=== PATIENT | female | born 1940 | race Caucasian/White ===

== ENCOUNTER 2019-11-16 09:25 | Outpatient (CLI) | payer MEDICARE, OTHER, SELFPAY ==
--- NOTE | 2019-11-16 09:43 | US_ITS ---
WS: [id number] ADDITIONAL VIEWS LEFT MAMMOGRAM LEFT BREAST ULTRASOUND HISTORY: LT BREAST NODULAR DENSITY COMPARISON: 10/17/2019, 09/02/2018 and 06/30/2017 LEFT MAMMOGRAM: Spot compression views and true ML. Asymmetry in the lateral LEFT breast nearly completely resolves with additional imaging. There is elinor y minimal increased density seen only on the LEFT cc. Suspect this is normal fibroglandular density b ut ultrasound to follow. LEFT BREAST ULTRASOUND 2-D and color Doppler imaging submitted. Ultrasound is directed to the lateral LEFT breast. Along the lateral LEFT breast from 1-5 o'clock, n o suspicious masses or shadowing or increased vascularity. US/US breast LT limited* [id number] IMPRESSION: BI-RADS: 2-Benign FOLLOW UP: 1 Year Follow-up
== END 2019-11-16 09:26 | disposition home or self-care (01) ==
LOC: RADSHAW 09:39
PROVIDERS: Family Provider Registered Nurse; PCP Registered Nurse; Visit Provider Registered Nurse
DX: N64.89 Other specified disorders of breast (principal)
CPT/HCPCS: 76642; 77065

== ENCOUNTER 2019-11-20 13:42 | Outpatient (CLI) | payer MEDICARE, OTHER, SELFPAY ==
--- NOTE | 2019-11-20 13:48 | XR_ITS ---
WS: [id number] DEXA (DUAL ENERGY X-RAY ABSORPTIOMETRY) Bone mineral density was performed using a [employer] machine. HISTORY: OSTEOPOROSIS SCREENING, POST-MENOPAUSAL COMPARISON: None available. Lumbar spine BMD (L1-L4): 1.199 g/cm2 T score: 0.2 Z score: 2.0 Total hip BMD: Left: 0.941 g/cm2. T score: -0.5 Z score: 1.5 Right: 0.947 g/cm2. T score: -0.5 Z score: 1.5 10 year probability of a major osteoporotic fracture is 12%. XR/XR DEXA axial skeleton* [id number] IMPRESSION: NORMAL BONE MINERAL DENSITY based upon the WHO classification for females.
== END 2019-11-20 13:43 | disposition home or self-care (01) ==
LOC: RADWPI 13:46
PROVIDERS: Family Provider Registered Nurse; PCP Radiology Radiation Oncology; Referring Provider Registered Nurse; Visit Provider Registered Nurse
DX: Z78.0 Asymptomatic menopausal state (principal); Z13.820 Encounter for screening for osteoporosis
CPT/HCPCS: 77080

== ENCOUNTER → 2020-04-17 12:13 | Outpatient (BNVA) | payer MEDICARE, OTHER, SELFPAY | PROVIDERS: Family Provider Registered Nurse; PCP Registered Nurse; Visit Provider Internal Medicine Cardiovascular Disease | DX: I65.23 Occlusion and stenosis of bilateral carotid arteries (principal); E78.5 Hyperlipidemia, unspecified; R06.02 Shortness of breath | CPT/HCPCS: 80048; 80061 ==

== ENCOUNTER 2020-04-30 14:55 | Outpatient (CLI) | payer MEDICARE, OTHER, SELFPAY ==
--- NOTE | 2020-04-30 15:00 | USCV_ITS ---
Ariane Perry Age: 79 Gender: F : 1940 Exam Date: 04/30/2020 15:38 Ordering Phys: Macie Weems MD ([email or web address]) Technologist: Danielle Montez Exam Location: [facility] [place] Indication: STENOSIS Risk Factors: Previous Vascular Surgery: Right Brachial BP: / Left Brachial BP: / Right Left Velocity (cm/s) Spectral Plaque Velocity (cm/s) Spectral Plaque Syst/Diast Broadening Syst/Diast Broadening 37.30/ 10.10 Prox CCA 68.40 / 21.00 36.50/ 13.20 Mid CCA 44.40 / 13.70 34.20/ 14.00 Distal CCA 38.50 / 12.80 87.40/ 21.80 Prox ICA 174.90/ 44.20 92.80/ 27.30 Mid ICA 207.10/ 54.30 92.80/ 14.20 Distal ICA 144.80/ 36.20 48.10 ECA 124.30 2.54 ICA/CCA 4.66 Antegrade Vertebral Antegrade 88.50/ 14.20 cm/s 56.50/ 15.80 cm/s Tri Subclavian Tri 136.5 111.7 0 0 FINDINGS Moderate and circular plaque the right bifurcation and internal carotid artery. Moderate to heavy heterogeneous irregular plaques of the left bifurcation and internal carotid artery. Antegrade flow in the vertebral arteries bilaterally. Normal external carotid and subclavian artery Doppler velocities bilaterally CONCLUSIONS Moderate to heavy heterogeneous irregular plaques at the left bifurcation and internal carotid artery with velocity elevation consistent with 50-79% stenosis. Moderate dense irregular plaque at the right bifurcation and internal carotid artery with velocity elevation consistent with 16-49% stenosis. Compared to the study from July 2019, stenosis on the right side appears to be less severe Dr Macie Weems MD [facility] (Electronically Signed) Final Date: 01 May 2020 15:17 S
== END 2020-04-30 14:56 | disposition home or self-care (01) ==
LOC: RAD 15:01
PROVIDERS: PCP Registered Nurse; Visit Provider Internal Medicine Cardiovascular Disease
DX: I65.23 Occlusion and stenosis of bilateral carotid arteries (principal)
CPT/HCPCS: 93880

== ENCOUNTER → 2020-10-23 11:17 | Outpatient (BNVA) | payer MEDICARE, OTHER, SELFPAY | PROVIDERS: PCP Registered Nurse; Visit Provider Internal Medicine Cardiovascular Disease | DX: I65.23 Occlusion and stenosis of bilateral carotid arteries (principal); E78.5 Hyperlipidemia, unspecified; R06.02 Shortness of breath; I10 Essential (primary) hypertension | CPT/HCPCS: 80048; 80061; 83036 ==

== ENCOUNTER 2020-11-26 12:46 | Outpatient (CLI) | payer MEDICARE, OTHER, SELFPAY ==
--- NOTE | 2020-11-26 12:55 | MM_ITS ---
WS: [id number] BILATERAL SCREENING DIGITAL MAMMOGRAM WITH CAD HISTORY: SCREENING COMPARISON: 11/16/2019, 10/17/2019 and 12/19/2015 Bilateral CC and MLO views submitted. Computer aided detection analyzed. Breast composition: There are scattered areas of fibroglandular density. No suspicious masses, microc alcifications or architectural distortion. Lobulated nodule in the anterior RIGHT breast measures 7 m m and unchanged. Benign calcification also in the RIGHT breast. MM/[place] [id number] IMPRESSION: BI-RADS: 2-Benign FOLLOW UP: 1 Year Follow-up
== END 2020-11-26 12:47 | disposition home or self-care (01) ==
LOC: RADSHAW 12:53
PROVIDERS: PCP Registered Nurse; Visit Provider Registered Nurse
DX: Z12.31 Encounter for screening mammogram for malignant neoplasm of breast (principal)
CPT/HCPCS: 77067

== ENCOUNTER 2020-12-10 14:17 | Emergency (ER) | payer MEDICARE, OTHER, SELFPAY ==
[2020-12-10 14:23] VITALS: BP 180/67; PULSE 76; RESP 16; TEMP 36.4; O2SAT 98; BMI 25.7
--- NOTE | 2020-12-10 14:36 | XRR_ITS ---
PROCEDURE INFORMATION: Exam: XR Chest, 1 View Exam date and time: 12/10/2020 2:43 PM Age: 80 years old Clinical indication: Chest pain; Prior surgery; Surgery type: Pacemaker, stent TECHNIQUE: Imaging protocol: XR of the chest Views: 1 view. COMPARISON: CT chest w con* [id number] 10/23/2019 9:13 AM FINDINGS: Lungs: Unremarkable. No consolidation. Pleural spaces: Unremarkable. No pleural effusion. No pneumothorax. Heart/Mediastinum: Unremarkable. No cardiomegaly. Bones/joints: Unremarkable. Soft tissues: Cardiac pacemaker is seen in the left anterior chest the leads are intact and good position XR/XR chest 1V portable [id number] IMPRESSION: 1. No acute findings. 2. Stable cardiac pacemaker left anterior chest
--- NOTE | 2020-12-10 14:36 | ECG_ITS ---
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/[id number] f
[2020-12-10 14:45] LABS: Basophils # 0.1 10^3/uL (0.0-0.1); Basophils % 0.7 %; Eosinophils # 0.2 10^3/uL (0.0-0.8); Eosinophils % 2.6 %; Hematocrit 44.5 % (37.0-47.0); Hemoglobin 14.6 g/dL (11.5-15.3); Lymphocytes # 1.6 10^3/uL (0.8-4.8); Lymphocytes % 23.6 %; Mean Corpuscular HGB Conc 32.8 g/dL (30.0-36.0); Mean Corpuscular Hemoglobin 30.9 pg (28.0-34.0); Mean Corpuscular Volume 94.3 fL (81-99); Mean Platelet Volume 8.9 fL (7.4-10.4); Monocytes # 0.4 10^3/uL (0.2-0.9); Monocytes % 6.4 %; Neutrophils # 4.59 10^3/uL (1.8-7.7); Neutrophils % 66.3 %; Nucleated Red Blood Cells % 0 %; Platelet Count 213 10^3/cmm (130-400); Red Blood Count 4.72 10^6/uL (4.1-5.3); White Blood Count 6.9 10^3/uL (4.0-10.0)
[2020-12-10 14:55] LABS: INR 0.95 (0.8-1.2)
[2020-12-10] MEDS: aspirin 81 mg Chew Tablet 324 MG PO (15:00)
[2020-12-10 15:04] LABS: Troponin(5th) Baseline 15 ng/L (0-10)
[2020-12-10 15:11] LABS: Alanine Aminotransferase 29 U/L (0-33); Albumin Level 4.6 g/dL (3.5-5.2); Alkaline Phosphatase 138 IU/L (35-105); Anion Gap 15.3 (5-19); Aspartate Amino Transferase 32 U/L (0-32); Blood Urea Nitrogen 18 mg/dL (8-23); Calcium 9.6 mg/dL (8.5-10.5); Carbon Dioxide 27 mmol/L (22-29); Chloride 102 mmol/L (98-107); Globulin 2.2 g/dL (1.3-4.6); Glucose 126 mg/dL (65-115); Lipase 30 U/L (13-60); NT Pro B Type Natriuretic Pept 787 pg/mL (0-450); Osmolality Calculated 293 mOsm/kg (285-295); Potassium 4.3 mmol/L (3.5-5.1); Sodium 140 mmol/L (136-145); Total Bilirubin 0.7 mg/dL (0.15-1.2); Total Protein 6.8 g/dL (6.6-8.7)
--- NOTE | 2020-12-10 15:40 | ED_ITS ---
HPI - Chest Pain General: Chief Complaint: Chest Pain Stated Complaint: Chest pains this morning Time Seen by Provider: 12/10/20 14:22 Source: patient Mode of arrival: ambulatory Limitations: no limitations History of Present Illness: HPI narrative: 80-year-old female patient with a prior history of coronary artery disease, presents to the emergency department with chest pain that happened earlier today. Symptoms lasted about an hour. spontaneously resolved. She has a prior history of RI many years ago and she says she has been chest pain-free since then. She is here to be evaluated. MD complaint: chest pain Pertinent past history: coronary artery disease and prior RI Onset (ago): hour(s) (6) Timing of current episode: episodic and now resolved Prior episodes: No Onset: during rest Pain location: substernal Pain radiation: none Severity: moderate Quality: heaviness Relieving factors: nothing Exacerbating factors: nothing Associated symptoms: Deny abdominal pain, diaphoresis, dyspnea, fever(s), leg edema, nausea, palpitations, sense of impending doom, syncope or vomiting Treatment prior to arrival: none Review of Systems General: Reports: 10 or more systems reviewed and unremarkable except in HPI and below Const: Denies: fever(s) or diaphoresis Eyes: Denies: change in vision or blurry vision ENMT: Denies: throat pain, enlarged tonsils, odynophagia, hoarseness, mouth pain or swelling of lips/tongue Card: Denies: palpitations or syncope Resp: Denies: dyspnea GI: Denies: abdominal pain, nausea or vomiting : Denies: flank pain, difficulty voiding, dysuria, urinary frequency, urinary urgency or urinary hesitancy Musc: Denies: neck pain, back pain or extremity swelling Skin/Breast: Denies: rash, pruritus or erythema Neuro: Denies: headache(s), numbness in extremities or weakness in extremities Endo: Denies: polyuria, polydipsia or tired all the time PFS ED PFSH: Medical History (Reviewed 12/10/20 @ 15:43 by Marialuisa Prakash MD, [facility] [place] ASHD (arteriosclerotic heart disease) Bilateral carotid artery stenosis Diabetes Dyslipidemia Hypertension Incomplete heart block Pacemaker Family History (Reviewed 12/10/20 @ 15:43 by Marialuisa Prakash MD, [facility] [place] Mother CAD (coronary artery disease) Father CAD (coronary artery disease) Brother CAD (coronary artery disease) Sister CAD (coronary artery disease) Chronic kidney disease (CKD) Diabetes Hyperlipidemia Hypertension Stroke Denies family history of Clotting disorder Dementia Suicide Anesthesia complication Bleeding disorder Lung disease Cancer Social History (Reviewed 12/10/20 @ 15:43 by Marialuisa Prakash MD, [facility] [place] Smoking and tobacco status: former smoker Alcohol intake: never Physical Exam Const: COMMON NORMALS: no acute distress, average body habitus, patient oriented x3, no limitations, healthy appearing, alert and well nourished Neck/C-Spine: COMMON NORMALS: no meningeal signs and no JVD Chest: COMMONS NORMALS: normal inspection of the chest and normal palpation of entire chest wall Resp: COMMON NORMALS: normal respiratory effort, No retractions, No use of accessory muscles, clear to auscultation bilaterally and percussion normal AUSCULTATION: clear to auscultation bilaterally PERCUSSION: percussion normal Cardio: COMMON NORMALS: no JVD, regular rate, regular rhythm, S1 normal heart sound present, S2 normal heart sound present, No gallops present (Cardio), No clicks present (Cardio), No murmurs present (Cardio), No rub (Cardio) and Peripheral pulses 2+ throughout RATE: regular rate RHYTHM: regular rhythm HEART SOUNDS: S1 normal heart sound present and S2 normal heart sound present PERIPHERAL PULSES: Peripheral pulses 2+ throughout GI: COMMON NORMALS: Normal to inspection, nondistended, normoactive bowel sounds present, Soft to palpation, non-tender, No hepatosplenomegaly present, no masses and no bruits PALPATION: Yes Soft to palpation and Yes No hepatosplen omegaly present Extremity: COMMON NORMALS: normal to inspection, full ROM, capillary refill normal, no calf tenderness and no pedal edema Neuro: COMMON NORMALS: patient oriented x3 SENSORIUM/ORIENTATION: Yes alert MENINGEAL SIGNS: Yes no meningeal signs Course Reevaluation(s): Reevaluation #1: Discussed her lab and imaging findings with her. Troponin mildly elevated but she has a flat 2-hour delta. Other labs are unremarkable. We will discharge her home with no new orders but she is to contact her drapery hanger tomorrow and see if you would like follow-up. She voiced understanding and is in agreement with the plan. Time: 18:32 Vital Signs: Vital signs: Vital Signs Temperature 97.6 F 12/10/20 14:23 Pulse Rate 70 12/10/20 18:41 Respiratory Rate 17 12/10/20 18:41 Blood Pressure 175/83 12/10/20 18:41 Pulse Oximetry 96 12/10/20 18:41 MDM - Chest Pain MDM Narrative: Medical decision making narrative: 80-year-old female patient with a history of a prior RI and coronary artery disease presented to the emergency department with chest pain that lasted about 1 hour. Evaluation in the emergency department is unremarkable. She is discharged home with no new orders Medical Records: Attestation: I reviewed the patient's medical records. Lab Data: Attestation: I reviewed the patient's lab results. Labs: Lab Results 12/10/20 12/10/20 12/10/20 Range/Units 14:34 14:34 14:34 WBC 6.9 (4.0-10.0) 10^3/ uL RBC 4.72 (4.1-5.3) 10^6/u L Hgb 14.6 (11.5-15.3) g/dL Hct 44.5 (37.0-47.0) % MCV 94.3 (81-99) fL MCH 30.9 (28.0-34.0) pg MCHC 32.8 (30.0-36.0) g/dL RDW 13.0 (12.1-15.1) % Plt Count 213 (130-400) 10^3/c mm MPV 8.9 (7.4-10.4) fL Neut % (Auto) 66.3 % Lymph % (Auto) 23.6 % [place] % (Auto) 6.4 % Eos % (Auto) 2.6 % Baso % (Auto) 0.7 % Neut # (Auto) 4.59 (1.8-7.7) 10^3/u L Lymph # (Auto) 1.6 (0.8-4.8) 10^3/u L [place] # (Auto) 0.4 (0.2-0.9) 10^3/u L Eos # (Auto) 0.2 (0.0-0.8) 10^3/u L Baso # (Auto) 0.1 (0.0-0.1) 10^3/u L Nucleated RBC % (a uto) 0 % Nucleated RBCs # 0.0 /100WBC PT 13.00 (12.1-14.9) SECO NDS INR 0.95 (0.8-1.2) Sodium 140 (136-145) mmol/L Potassium 4.3 (3.5-5.1) mmol/L Chloride 102 (98-107) mmol/L Carbon Dioxide 27 (22-29) mmol/L Anion Gap 15.3 (5-19) BUN 18 (8-23) mg/dL Creatinine 0.8 (0.5-0.9) mg/dL GFR Calculation Not Reportable Glucose 126 H (65-115) mg/dL Calculated Osmolal ity 293 (285-295) mOsm/k g Calcium 9.6 (8.5-10.5) mg/dL Total Bilirubin 0.7 (0.15-1.2) mg/dL AST 32 (0-32) U/L ALT 29 (0-33) U/L Alkaline Phosphata se 138 H (35-105) IU/L Troponin T Baselin e (0-10) ng/L Troponin T 120 Min [place] (0-10) ng/L Delta Troponin T (0-10) ABS# NT-Pro-B Natriuret Pep 787 H (0-450) pg/mL Total Protein 6.8 (6.6-8.7) g/dL Albumin 4.6 (3.5-5.2) g/dL Globulin 2.2 (1.3-4.6) g/dL Lipase 30 (13-60) U/L 12/10/20 12/10/20 Range/Units 14:34 16:40 WBC (4.0-10.0) 10^3/ uL RBC (4.1-5.3) 10^6/u L Hgb (11.5-15.3) g/dL Hct (37.0-47.0) % MCV (81-99) fL MCH (28.0-34.0) pg MCHC (30.0-36.0) g/dL RDW (12.1-15.1) % Plt Count (130-400) 10^3/c mm MPV (7.4-10.4) fL Neut % (Auto) % Lymph % (Auto) % [place] % (Auto) % Eos % (Auto) % Baso % (Auto) % Neut # (Auto) (1.8-7.7) 10^3/u L Lymph # (Auto) (0.8-4.8) 10^3/u L [place] # (Auto) (0.2-0.9) 10^3/u L Eos # (Auto) (0.0-0.8) 10^3/u L Baso # (Auto) (0.0-0.1) 10^3/u L Nucleated RBC % (a uto) % Nucleated RBCs # /100WBC PT (12.1-14.9) SECO NDS INR (0.8-1.2) Sodium (136-145) mmol/L Potassium (3.5-5.1) mmol/L Chloride (98-107) mmol/L Carbon Dioxide (22-29) mmol/L Anion Gap (5-19) BUN (8-23) mg/dL Creatinine (0.5-0.9) mg/dL GFR Calculation Glucose (65-115) mg/dL Calculated Osmolal ity (285-295) mOsm/k g Calcium (8.5-10.5) mg/dL Total Bilirubin (0.15-1.2) mg/dL AST (0-32) U/L ALT (0-33) U/L Alkaline Phosphata se (35-105) IU/L Troponin T Baselin e 15 H (0-10) ng/L Troponin T 120 Min [place] 10.90 H (0-10) ng/L Delta Troponin T -4.10 L (0-10) ABS# NT-Pro-B Natriuret Pep (0-450) pg/mL Total Protein (6.6-8.7) g/dL Albumin (3.5-5.2) g/dL Globulin (1.3-4.6) g/dL Lipase (13-60) U/L Imaging Data^: CXR: Attestation: I personally reviewed and interpreted this imaging study as follows: Radiologist's impression: [address] [address] XRay Report Signed Patient: Ariane Perry #: [id number] : 1940Acct#:[id number] Age/Sex: 80 / FADM Date: 12/10/20 Loc: ERRoom/Bed: Attending Dr: Ordering Provider/Ordering MD: Marialuisa Prakash [place] [facility] [place] Date of Service: 12/10/20 Procedure(s): XR chest 1V portable [id number] Accession Number(s): [id number] Report Number: [id number] PROCEDURE INFORMATION: Exam: XR Chest, 1 View Exam date and time: 12/10/2020 2:43 PM Age: 80 years old Clinical indication: Chest pain; Prior surgery; Surgery type: Pacemaker, stent TECHNIQUE: Imaging protocol: XR of the chest Views: 1 view. COMPARISON: CT chest w con* [id number] 10/23/2019 9:13 AM FINDINGS: Lungs: Unremarkable. No consolidation. Pleural spaces: Unremarkable. No pleural effusion. No pneumothorax. Heart/Mediastinum: Unremarkable. No cardiomegaly. Bones/joints: Unremarkable. Soft tissues: Cardiac pacemaker is seen in the left anterior chest the leads are intact and good position XR/XR chest 1V portable [id number] IMPRESSION: 1. No acute findings. 2. Stable cardiac pacemaker left anterior chest Dictated By:Rafael Thomas Signed By:Chelo Thomas Date/Time:12/10/20 1505 DD/ 1503 EKG Data^: EKG 1: Attestation: I personally reviewed and interpreted this EKG as follows: EKG interpretation date: 12/10/20 EKG interpretation time: 14:24 Prior EKG tracings: available for review Interpretation: Electronic atrial pacemaker. Heart rate [address] changes. Intraventricular conduction delay EKG 2: Attestation: I personally reviewed and interpreted this EKG as follows: EKG interpretation date: 12/10/20 EKG interpretation time: 16:35 Prior EKG tracings: available for review Interpretation: Electronic pacemaker rhythm. Heart rate 69 bpm. Left axis deviation. No ST changes. Intraventricular conduction delay. No significant change. Discharge Plan Discharge Patient Disposition: Home Clinical Impression: Chest pain Qualifiers: Chest pain type: unspecified Qualified Code(s): R07.9 - Chest pain, unspecified Hypertension Qualifiers: Hypertension type: essential hypertension Qualified Code(s): I10 - Essential (primary) hypertension Condition: Stable Prescriptions: Continued clopidogrel [Plavix] 75 mg tablet 75 mg PO DAILY@2100 RF: 0 potassium gluconate 600 mg (99 mg) tablet 600 mg PO DAILY@0800 RF: 0 nitroglycerin [Nitrostat] 0.4 mg tablet, sublingual 0.4 mg SUBLINGUAL Q5M PRN (Reason: chest pains) RF: 0 multivitamin Tablet 1 tab PO DAILY@0800 RF: 0 alprazolam 0.5 mg tablet 0.5 mg PO TID PRN (Reason: Anxiety) RF: 0 folic acid 400 mcg tablet 0.4 mg PO DAILY@0800 RF: 0 atorvastatin 40 mg tablet 40 mg PO DAILY@2100 RF: 0 aspirin [Adult Low Dose Aspirin] 81 mg tablet,delayed release (DR/EC) 81 mg PO DAILY@2100 RF: 0 magnesium oxide 400 mg magnesium tablet 500 mg PO DAILY@0800 RF: 0 metoprolol succinate 100 mg tablet extended release 24 hr 100 mg PO DAILY@0800 RF: 0 Discharge Orders: Discharge ED (Routine); Ordered 12/10/20 Ordered By: Marialuisa Prakash Referrals: Macie Weems MD [Physician] - 1-3 days Kassie Toscano [Primary Care Provider] - 1-3 days Discharge Diet: Usual diet Discharge Activity: Increase activity as tolerated Patient Instructions: Chest Pain (ED), Hypertension (ED) Activity Restrictions/Additional Instructions: Return for any new or worsening symptoms. Follow-up with your primary care provider within 3 days. Call the office of Dr. Weems tomorrow and explain what happened and see if he would like to see you in the clinic soon. He will also be sent a copy of your chart. Continue home medications. Check your blood pressure at home at least twice a day if it remains elevated you need to restart your blood pressure medicines. Coding Level of Care Code ED V Block Saw Operator for Maulik Fwd Exam Detailed
--- NOTE | 2020-12-10 16:36 | ECG_ITS ---
[facility] Test Date: 2020-12-10 Pat Name: Ariane Perry Department: Room: Gender: Female Top Closer: : 1940 Requested By: Marialuisa Prakash I Order Number: [id number] Reading MD: JESSICA ESPINOZA Measurements Intervals [place] Rate: 69 P: 123 MS: 259 QRS: -73 QRSD: 144 T: 81 QT: 457 QTc: 493 Interpretive Statements ELECTRONIC ATRIAL PACEMAKER LEFT AXIS DEVIATION [QRS AXIS < -30] INTRAVENTRICULAR CONDUCTION DELAY [130+ ms QRS DURATION] Compared to ECG 12/10/2020 14:24:27 No significant changes Electronically Signed On 12-10-2020 18:03:15 PARTY PLANNER by JESSICA ESPINOZA [id number]
[2020-12-10 17:22] VITALS: BP 170/66; PULSE 70; RESP 19; O2SAT 97
[2020-12-10 18:41] VITALS: BP 175/83; PULSE 70; RESP 17; O2SAT 96
== END 2020-12-10 18:43 | disposition home or self-care (01) ==
PROVIDERS: Emergency Provider Family Medicine; PCP Registered Nurse
DX: R07.9 Chest pain, unspecified (principal); I10 Essential (primary) hypertension; Z79.02 Long term (current) use of antithrombotics/antiplatelets; Z79.82 Long term (current) use of aspirin; E11.9 Type 2 diabetes mellitus without complications; E78.5 Hyperlipidemia, unspecified; Z95.0 Presence of cardiac pacemaker; Z87.891 Personal history of nicotine dependence
CPT/HCPCS: 12345; 36415; 71045; 80053; 83690; 83880; 84484; 85025; 85610; 93005; 99283

== ENCOUNTER 2020-12-25 14:32 | Observation (INO) | payer MEDICARE, OTHER, SELFPAY ==
[2020-12-25] VITALS (10 sets, daily range): BP systolic 128–171; BP diastolic 57–85; PULSE 70–80; RESP 14–22; TEMP 36.7–36.8; O2SAT 94–98; BMI 26.5
--- NOTE | 2020-12-25 14:45 | XR_ITS ---
WS: [id number] PORTABLE CHEST HISTORY: chest pain COMPARISON: 12/10/2020 Dual lead LEFT subclavian pacer. Lungs are clear and well expanded. No pleural effusion or pneumothorax. Cardiac size: Normal. Mediastinum/Aorta: Normal mediastinum. No osseous abnormality seen. XR/XR chest 1V portable [id number] IMPRESSION: Unremarkable portable chest.
--- NOTE | 2020-12-25 14:45 | ECG_ITS ---
[facility] Test Date: 2020-12-25 Pat Name: Ariane Perry Department: Room: Gender: Female Hospital Cook: : 1940 Requested By: Niru Crook Order Number: [id number] [place] MD: Danny Ro M.D. Measurements Intervals [place] Rate: 73 P: 110 AK: 271 QRS: -75 QRSD: 148 T: 106 QT: 443 QTc: 491 Interpretive Statements ELECTRONIC ATRIAL PACEMAKER LEFT AXIS DEVIATION [QRS AXIS < -30] INTRAVENTRICULAR CONDUCTION DELAY [130+ ms QRS DURATION] Compared to ECG 12/10/2020 16:35:03 No significant changes Electronically Signed On 12-26-2020 16:55:38 MASTER OCEAN YACHT by Danny Ro M.D. [id number]
--- NOTE | 2020-12-25 14:58 | ED_ITS ---
Documented by User: DIANE Hines 12/25/20 16:50 HPI - Chest Pain General: Chief Complaint: Chest Pain Stated Complaint: CP Time Seen by Provider: 12/25/20 14:42 Source: patient and family (spouse) Mode of arrival: ambulatory Limitations: no limitations History of Present Illness: HPI narrative: Pleasant 80-year-old female patient presents to the emergency department with 24-hour onset of chest pain. She reports chest pain is located in the center of her chest. She reports previous episodes in the past with spontaneous resolution, states evaluated by Dr. Weems on 12/13/2020 with recommended stress test, however, stress test has not been scheduled. She reports this morning, chest pain continued, reports the first time she utilized nitroglycerin tablets. Reports took 3 nitroglycerin 5 minutes apart x3. She is currently pain-free, denies pain in her chest, denies shortness of breath, nausea vomiting or radiation of pain. She denies cough congestion. She has history of PPM placement to the left chest wall secondary to syncope and collapse, bradycardia. She also has history of PCI with stent placement x1. She reports did not feel chest pain with first blockage due to syncope she experienced. 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 Onset (ago): day(s) (1) Onset: during rest Pain location: parasternal Pain radiation: none Severity: moderate Quality: sharp Relieving factors: nitroglycerin Exacerbating factors: nothing Associated symptoms: Reports no associated symptoms; Deny abdominal pain, diaphoresis, dyspnea, fever(s), nausea, palpitations or vomiting Treatment prior to arrival: aspirin Review of Systems General: Reports: 10 or more systems reviewed and unremarkable except in HPI and below Const: Denies: fever(s), chills or diaphoresis Eyes: Denies: blurry vision or eye redness ENMT: Denies: throat pain, dental pain or disequilibrium Card: Reports: chest pain; Denies: palpitations, irregular heart rhythm, swelling of feet/ankles, lightheadedness, dyspnea on exertion, orthopnea or leg pain with exertion Resp: Denies: dyspnea, productive cough, non-productive cough or wheezing GI: Denies: abdominal pain, nausea or vomiting : Denies: difficulty voiding or dysuria Musc: Denies: back pain, joint pain, joint stiffness, muscle cramps or muscle weakness Skin/Breast: Denies: rash, pruritus, erythema or skin tenderness Neuro: Denies: headache(s), weakness in extremities or behavioral changes Raf/Lymph: Denies: easy bruising PFSH ED PFSH: Medical History ASHD (arteriosclerotic heart disease) Bilateral carotid artery stenosis Diabetes Dyslipidemia Hypertension Incomplete heart block Pacemaker Family History Mother CAD (coronary artery disease) Father CAD (coronary artery disease) Brother CAD (coronary artery disease) Sister CAD (coronary artery disease) Chronic kidney disease (CKD) Diabetes Hyperlipidemia Hypertension Stroke Denies family history of Clotting disorder Dementia Suicide Anesthesia complication Bleeding disorder Lung disease Cancer Social History Smoking and tobacco status: former smoker Alcohol intake: never Physical Exam Const: COMMON NORMALS: no acute distress, average body habitus, patient oriented x3, healthy appearing, alert and well nourished GENERAL APPEARANCE: cooperative, comfortable, well kempt, well developed and well hydrated; not disheveled, not ill appearing and not frail appearing NUTRITIONAL APPEARANCE: thin ORIENTATION/CONSCIOUSNESS: Yes awake, Yes oriented to person, Yes oriented to place and Yes oriented to time HENMT: COMMON NORMALS: normocephalic, atraumatic, external ears normal, Normal external nose present and moist oral mucous membranes HEAD & SCALP: normal to inspection, normocephalic and atraumatic FACE & SINUS: normal facial exam and face symmetric NOSE: Normal external nose present, Normal nares present and No nasal polyps present EXTERNAL EAR: Yes external ears normal MOUTH: Normal oral and palatal mucosa present, lip normal and tongue normal THROAT: posterior oropharynx normal and uvula midline Eye: COMMON NORMALS: Equal, round and reactive pupils present and EOMs intact bilaterally GENERAL EYE: appearance normal, both eyes and all related structures PUPIL: Yes Equal, round and reactive pupils present Neck/C-Spine: COMMON NORMALS: full ROM and no lymphadenopathy GENERAL: Yes normal visual inspection and Yes trachea midline CERVICAL SPINE: Yes cervical ROM normal Lymph: LYMPHATIC: no lymphadenopathy noted Chest: COMMONS NORMALS: normal inspection of the chest and normal palpation of entire chest wall CHEST: No localized rib tenderness with anteroposterior compression Resp: COMMON NORMALS: normal respiratory effort, No retractions, No use of accessory muscles and clear to auscultation bilaterally EFFORT & INSPECTION: Yes able to speak in complete sentences, No abnormal respiratory pattern, No pursed lip breathing, No labored and No audible wheezes AUSCULTATION: clear to auscultation bilaterally and lung sounds not diminished Cardio: COMMON NORMALS: regular rate, regular rhythm, S1 normal heart sound present, S2 normal heart sound present and Peripheral pulses 2+ throughout RATE: regular rate RHYTHM: regular rhythm HEART SOUNDS: S1 normal heart sound present and S2 normal heart sound present PERIPHERAL PULSES: Peripheral pulses 2+ throughout GI: COMMON NORMALS: Normal to inspection, nondistended, normoactive bowel sounds present, Soft to palpation and non-tender INSPECTION: Yes normal to inspection, No abdominal wall ecchymosis, No abdominal distension and No central obesity PALPATION: Yes Soft to palpation, No Guarding due to palpation present (GI) and No Rigid due to palpation : COMMON NORMALS: Yes no CVA tenderness BLADDER/KIDNEY EXAM: Yes no CVA tenderness Back/Pelvis: COMMON NORMALS: no CVA tenderness and thoracic and lumbar spine normal to inspection Extremity: COMMON NORMALS: normal to inspection, full ROM, capillary refill normal and no pedal edema GENERAL: Yes normal exam except as noted Neuro: COMMON NORMALS: patient oriented x3 and no focal motor deficits SENSORIUM/ORIENTATION: Yes alert, Yes oriented to person, Yes oriented to place and Yes oriented to time SPEECH: speech normal GAIT: Yes Normal gait present MOTOR EXAM: 5/5 motor strength present throughout Psych: COMMON NORMALS: mental status grossly normal, Normal thought process present, cooperative, normal affect, speech normal and activity/motor behavior normal APPEARANCE: Yes well kempt ACTIVITY/MOTOR BEHAVIOR: Yes appropriate eye contact SPEECH: Yes normal speech THOUGHT PROCESS: Normal thought process present Skin: COMMON NORMALS: no rashes or lesions noted, no wounds, turgor normal, no petechiae and no mottling GENERAL SKIN EXAM: no rashes or lesions noted, elasticity normal and turgor normal Course Vital Signs: Vital signs: Vital Signs Temperature 98.0 F 12/25/20 14:43 Pulse Rate 70 12/25/20 18:00 Respiratory Rate 18 12/25/20 18:00 Blood Pressure 133/59 12/25/20 18:00 Pulse Oximetry 96 12/25/20 18:00 MDM - Chest Pain MDM Narrative: Medical decision making narrative: 80 year old female presents to the ED with c/o CP since yesterday, took NTG x 3 with relief - CP 2/10 upon arrival to the ED, initial troponin 13 - 2 hour troponin pending. CXR with normal findings. Lab Data: Labs: Lab Results 12/25/20 12/25/20 12/25/20 Range/Units 14:56 14:56 14:56 WBC 6.5 (4.0-10.0) 10^3/ uL RBC 4.28 (4.1-5.3) 10^6/u L Hgb 13.3 (11.5-15.3) g/dL Hct 38.8 (37.0-47.0) % MCV 90.7 (81-99) fL MCH 31.1 (28.0-34.0) pg MCHC 34.3 (30.0-36.0) g/dL RDW 12.7 (12.1-15.1) % Plt Count 208 (130-400) 10^3/c mm MPV 8.6 (7.4-10.4) fL Neut % (Auto) 63.9 % Lymph % (Auto) 24.8 % [place] % (Auto) 7.9 % Eos % (Auto) 2.5 % Baso % (Auto) 0.6 % Neut # (Auto) 4.14 (1.8-7.7) 10^3/u L Lymph # (Auto) 1.6 (0.8-4.8) 10^3/u L [place] # (Auto) 0.5 (0.2-0.9) 10^3/u L Eos # (Auto) 0.2 (0.0-0.8) 10^3/u L Baso # (Auto) 0.0 (0.0-0.1) 10^3/u L Nucleated RBC % (a uto) 0 % Nucleated RBCs # 0.0 /100WBC Sodium 137 (136-145) mmol/L Potassium 3.7 (3.5-5.1) mmol/L Chloride 97 L (98-107) mmol/L Carbon Dioxide 32 H (22-29) mmol/L Anion Gap 11.7 (5-19) BUN 12 (8-23) mg/dL Creatinine 1.0 H (0.5-0.9) mg/dL GFR Calculation Not Reportable Glucose 88 (65-115) mg/dL POC Glucose (70-110) mg/dL Calculated Osmolal ity 283 L (285-295) mOsm/k g Calcium 9.5 (8.5-10.5) mg/dL Total Bilirubin 0.7 (0.15-1.2) mg/dL AST 31 (0-32) U/L ALT 30 (0-33) U/L Alkaline Phosphata se 138 H (35-105) IU/L Troponin T Baselin e 13 H (0-10) ng/L Troponin T 120 Min [place] (0-10) ng/L Delta Troponin T (0-10) ABS# Total Protein 6.9 (6.6-8.7) g/dL Albumin 4.6 (3.5-5.2) g/dL Globulin 2.3 (1.3-4.6) g/dL 12/25/20 12/25/20 Range/Units 15:05 16:53 WBC (4.0-10.0) 10^3/ uL RBC (4.1-5.3) 10^6/u L Hgb (11.5-15.3) g/dL Hct (37.0-47.0) % MCV (81-99) fL MCH (28.0-34.0) pg MCHC (30.0-36.0) g/dL RDW (12.1-15.1) % Plt Count (130-400) 10^3/c mm MPV (7.4-10.4) fL Neut % (Auto) % Lymph % (Auto) % [place] % (Auto) % Eos % (Auto) % Baso % (Auto) % Neut # (Auto) (1.8-7.7) 10^3/u L Lymph # (Auto) (0.8-4.8) 10^3/u L [place] # (Auto) (0.2-0.9) 10^3/u L Eos # (Auto) (0.0-0.8) 10^3/u L Baso # (Auto) (0.0-0.1) 10^3/u L Nucleated RBC % (a uto) % Nucleated RBCs # /100WBC Sodium (136-145) mmol/L Potassium (3.5-5.1) mmol/L Chloride (98-107) mmol/L Carbon Dioxide (22-29) mmol/L Anion Gap (5-19) BUN (8-23) mg/dL Creatinine (0.5-0.9) mg/dL GFR Calculation Glucose (65-115) mg/dL POC Glucose 109 (70-110) mg/dL Calculated Osmolal ity (285-295) mOsm/k g Calcium (8.5-10.5) mg/dL Total Bilirubin (0.15-1.2) mg/dL AST (0-32) U/L ALT (0-33) U/L Alkaline Phosphata se (35-105) IU/L Troponin T Baselin e (0-10) ng/L Troponin T 120 Min [place] 12.63 H (0-10) ng/L Delta Troponin T -0.37 L (0-10) ABS# Total Protein (6.6-8.7) g/dL Albumin (3.5-5.2) g/dL Globulin (1.3-4.6) g/dL Imaging Data^: CXR: Radiologist's impression: [address] [address] XRay Report Signed Patient: Ariane Perry Unit #: [id number] : 1940 Age/Sex: 80 / F ADM Date: 12/25/20 Loc: ER Room/Bed: Attending Dr: Ordering Provider/Ordering MD: Niru Miles MD Date of Service: 12/25/20 Procedure(s): XR chest 1V portable [id number] Accession Number(s): [id number] Report Number: [id number] WS: [id number] PORTABLE CHEST HISTORY: chest pain COMPARISON: 12/10/2020 Dual lead LEFT subclavian pacer. Lungs are clear and well expanded. No pleural effusion or pneumothorax. Cardiac size: Normal. Mediastinum/Aorta: Normal mediastinum. No osseous abnormality seen. XR/XR chest 1V portable [id number] IMPRESSION: Unremarkable portable chest. Dictated By: Sylwia Garces DO Signed By: Sylwia Garces DO Signed Date/Time: 12/25/20 1504 DD/ 1503 EKG Data^: EKG 1: EKG interpretation date: 12/25/20 EKG interpretation time: 14:50 Computer generated interpretation: Electronic atrial pacer, ventricular rate 73, intraventricular conduction delay, abnormal ECG, left axis deviation Discharge Plan Discharge Patient Disposition: Placed in Observation Clinical Impression: Unstable angina pectoris Coding Level of Care Code ED Tool Crib Supervisor for Chg Fwd Exam Comprehensive Documented by User: Niru Miles MD 12/25/20 18:36 HPI - Chest Pain General: Chief Complaint: Chest Pain Stated Complaint: CP Time Seen by Provider: 12/25/20 14:42 PFS ED PFSH: Medical History ASHD (arteriosclerotic heart disease) Bilateral carotid artery stenosis Diabetes Dyslipidemia Hypertension Incomplete heart block Pacemaker Family History Mother CAD (coronary artery disease) Father CAD (coronary artery disease) Brother CAD (coronary artery disease) Sister CAD (coronary artery disease) Chronic kidney disease (CKD) Diabetes Hyperlipidemia Hypertension Stroke Denies family history of Clotting disorder Dementia Suicide Anesthesia complication Bleeding disorder Lung disease Cancer Social History Smoking and tobacco status: former smoker Alcohol intake: never Course Reevaluation(s): Reevaluation #1: I saw this patient with DALE Jones and assumed care at the end of her shift. The patient has been painfree in the ED. She has been having chest pain off and on for several weeks and Dr. Weems wanted her to have a stress test after an office visit almost 2 weeks ago - but she hasn't heard from anyone to schedule it. She had the worst pain she has had today - and took 3 nitro. Her trops are neg and EKG unremarkable - but she has a high heart score and is agreeable to admission for monitoring and a stress test tomorrow - if that is felt to be appropriate by the admission team. Vital Signs: Vital signs: Vital Signs Temperature 98.0 F 12/25/20 14:43 Pulse Rate 70 12/25/20 18:00 Respiratory Rate 18 12/25/20 18:00 Blood Pressure 133/59 12/25/20 18:00 Pulse Oximetry 96 12/25/20 18:00 MDM - Chest Pain Lab Data: Labs: Lab Results 12/25/20 12/25/20 12/25/20 Range/Units 14:56 14:56 14:56 WBC 6.5 (4.0-10.0) 10^3/ uL RBC 4.28 (4.1-5.3) 10^6/u L Hgb 13.3 (11.5-15.3) g/dL Hct 38.8 (37.0-47.0) % MCV 90.7 (81-99) fL MCH 31.1 (28.0-34.0) pg MCHC 34.3 (30.0-36.0) g/dL RDW 12.7 (12.1-15.1) % Plt Count 208 (130-400) 10^3/c mm MPV 8.6 (7.4-10.4) fL Neut % (Auto) 63.9 % Lymph % (Auto) 24.8 % [place] % (Auto) 7.9 % Eos % (Auto) 2.5 % Baso % (Auto) 0.6 % Neut # (Auto) 4.14 (1.8-7.7) 10^3/u L Lymph # (Auto) 1.6 (0.8-4.8) 10^3/u L [place] # (Auto) 0.5 (0.2-0.9) 10^3/u L Eos # (Auto) 0.2 (0.0-0.8) 10^3/u L Baso # (Auto) 0.0 (0.0-0.1) 10^3/u L Nucleated RBC % (a uto) 0 % Nucleated RBCs # 0.0 /100WBC Sodium 137 (136-145) mmol/L Potassium 3.7 (3.5-5.1) mmol/L Chloride 97 L (98-107) mmol/L Carbon Dioxide 32 H (22-29) mmol/L Anion Gap 11.7 (5-19) BUN 12 (8-23) mg/dL Creatinine 1.0 H (0.5-0.9) mg/dL GFR Calculation Not Reportable Glucose 88 (65-115) mg/dL POC Glucose (70-110) mg/dL Calculated Osmolal ity 283 L (285-295) mOsm/k g Calcium 9.5 (8.5-10.5) mg/dL Total Bilirubin 0.7 (0.15-1.2) mg/dL AST 31 (0-32) U/L ALT 30 (0-33) U/L Alkaline Phosphata se 138 H (35-105) IU/L Troponin T Baselin e 13 H (0-10) ng/L Troponin T 120 Min [place] (0-10) ng/L Delta Troponin T (0-10) ABS# Total Protein 6.9 (6.6-8.7) g/dL Albumin 4.6 (3.5-5.2) g/dL Globulin 2.3 (1.3-4.6) g/dL 12/25/20 12/25/20 Range/Units 15:05 16:53 WBC (4.0-10.0) 10^3/ uL RBC (4.1-5.3) 10^6/u L Hgb (11.5-15.3) g/dL Hct (37.0-47.0) % MCV (81-99) fL MCH (28.0-34.0) pg MCHC (30.0-36.0) g/dL RDW (12.1-15.1) % Plt Count (130-400) 10^3/c mm MPV (7.4-10.4) fL Neut % (Auto) % Lymph % (Auto) % [place] % (Auto) % Eos % (Auto) % Baso % (Auto) % Neut # (Auto) (1.8-7.7) 10^3/u L Lymph # (Auto) (0.8-4.8) 10^3/u L [place] # (Auto) (0.2-0.9) 10^3/u L Eos # (Auto) (0.0-0.8) 10^3/u L Baso # (Auto) (0.0-0.1) 10^3/u L Nucleated RBC % (a uto) % Nucleated RBCs # /100WBC Sodium (136-145) mmol/L Potassium (3.5-5.1) mmol/L Chloride (98-107) mmol/L Carbon Dioxide (22-29) mmol/L Anion Gap (5-19) BUN (8-23) mg/dL Creatinine (0.5-0.9) mg/dL GFR Calculation Glucose (65-115) mg/dL POC Glucose 109 (70-110) mg/dL Calculated Osmolal ity (285-295) mOsm/k g Calcium (8.5-10.5) mg/dL Total Bilirubin (0.15-1.2) mg/dL AST (0-32) U/L ALT (0-33) U/L Alkaline Phosphata se (35-105) IU/L Troponin T Baselin e (0-10) ng/L Troponin T 120 Min [place] 12.63 H (0-10) ng/L Delta Troponin T -0.37 L (0-10) ABS# Total Protein (6.6-8.7) g/dL Albumin (3.5-5.2) g/dL Globulin (1.3-4.6) g/dL Discharge Plan Discharge Patient Disposition: Placed in Observation Clinical Impression: Unstable angina pectoris Coding Level of Care Code ED Tool Crib Supervisor for Maulik Fwd Exam Comprehensive
[2020-12-25 15:08] LABS: Glucose Point of Care 109 mg/dL (70-110)
[2020-12-25 15:13] LABS: Basophils % 0.6 %; Eosinophils # 0.2 10^3/uL (0.0-0.8); Eosinophils % 2.5 %; Hematocrit 38.8 % (37.0-47.0); Hemoglobin 13.3 g/dL (11.5-15.3); Lymphocytes # 1.6 10^3/uL (0.8-4.8); Lymphocytes % 24.8 %; Mean Corpuscular HGB Conc 34.3 g/dL (30.0-36.0); Mean Corpuscular Hemoglobin 31.1 pg (28.0-34.0); Mean Corpuscular Volume 90.7 fL (81-99); Mean Platelet Volume 8.6 fL (7.4-10.4); Monocytes # 0.5 10^3/uL (0.2-0.9); Monocytes % 7.9 %; Neutrophils # 4.14 10^3/uL (1.8-7.7); Neutrophils % 63.9 %; Nucleated Red Blood Cells % 0 %; Platelet Count 208 10^3/cmm (130-400); Red Blood Count 4.28 10^6/uL (4.1-5.3); Red Cell Distribution Width 12.7 % (12.1-15.1); White Blood Count 6.5 10^3/uL (4.0-10.0)
[2020-12-25 15:42] LABS: Alanine Aminotransferase 30 U/L (0-33); Albumin Level 4.6 g/dL (3.5-5.2); Alkaline Phosphatase 138 IU/L (35-105); Anion Gap 11.7 (5-19); Aspartate Amino Transferase 31 U/L (0-32); Blood Urea Nitrogen 12 mg/dL (8-23); Calcium 9.5 mg/dL (8.5-10.5); Carbon Dioxide 32 mmol/L (22-29); Chloride 97 mmol/L (98-107); Globulin 2.3 g/dL (1.3-4.6); Glucose 88 mg/dL (65-115); Osmolality Calculated 283 mOsm/kg (285-295); Potassium 3.7 mmol/L (3.5-5.1); Sodium 137 mmol/L (136-145); Total Bilirubin 0.7 mg/dL (0.15-1.2); Total Protein 6.9 g/dL (6.6-8.7)
[2020-12-25 15:44] LABS: Troponin(5th) Baseline 13 ng/L (0-10)
--- NOTE | 2020-12-25 16:45 | ECG_ITS ---
[facility] Test Date: 2020-12-25 Pat Name: Ariane Perry Department: Room: Gender: Female Clay Roaster: : 1940 Requested By: Niru Crook Order Number: [id number] Linden MD: Danny Ro M.D. Measurements Intervals [place] Rate: 69 P: 119 AL: 276 QRS: -76 QRSD: 150 T: 102 QT: 459 QTc: 495 Interpretive Statements ELECTRONIC ATRIAL PACEMAKER LEFT AXIS DEVIATION [QRS AXIS < -30] INTERVENTRICULAR CONDUCTION DELAY Compared to ECG 12/25/2020 14:46:35 NO SIGNIFICANT CHANGES Electronically Signed On 12-26-2020 16:48:08 MANAGER BUSINESS BANKING by Danny Ro M.D. [id number]
[2020-12-25 18:17] LABS: Troponin 5 2HR 12.63 ng/L (0-10)
[2020-12-25 18:27] LABS: Troponin 5 2HR Delta -0.37 ABS# (0-10)
--- NOTE | 2020-12-25 19:07 | P.HP_ITS ---
Providers/Chief Complaint Admitting Physician: Poonam Jack MD Primary Care Provider: Kassie Toscano Chief Complaint: CP History of Present Illness 80-year-old female with PMH of CAD S/P Stent, HTN, DLD , S/P ppm 2/2 syncope and collapse about 7 years backs back came in today with c/o chest pain. She reports pressure like chest pain is located in the center of her chest.Started around 11 am, chest pain was resolved with 3 sL nitro. She was having similar chest pain for about 2 weeks she was seen by on 12/13/2020 as outpatient and the plan at that time was do to an Stress test. Her previous episodes of chest pain in the past had spontaneous resolution. At the time of my evaluation She was chest pain-free. She was worked up for above complain in the ER. EKG: A Paced with marked LAD. Troponin : Baseline : 13 2H : 12 2H D: -0.37 , 6H: 11.84 , 6H D : -1.16 Xray chest : Dual lead LEFT subclavian pacer. Lungs are clear and well expanded. No pleural effusion or pneumothorax. Review of Systems Const: Denies: fever(s), chills, body aches, change in appetite or diaphoresis Card: Denies: palpitations, edema, swelling of feet/ankles, dyspnea on exertion, orthopnea or leg pain with exertion Resp: Denies: dyspnea, productive cough, wheezing or pain on inspiration GI: Denies: abdominal pain, nausea, vomiting, diarrhea or constipation : Denies: flank pain Musc: Denies: back pain, extremity pain or extremity swelling Neuro: Denies: headache(s), difficulty walking or confusion Medications/Allergies Home Medications Medication Instructions Recorded Confirmed Last Taken Type aspirin 81 mg tablet,delayed 81 mg PO DAILY@209904/17/20 12/25/20 12/24/20 History release atorvastatin 40 mg tablet 40 mg PO DAILY@209904/17/20 12/25/20 12/24/20 History clopidogrel 75 mg tablet 75 mg PO DAILY@209904/17/20 12/25/20 12/24/20 History folic acid 400 mcg tablet 0.4 mg PO DAILY@159904/17/20 12/25/20 12/24/20 History multivitamin 1 tab PO DAILY@1600 0612/25/20 12/24/20 History nitroglycerin 0.4 mg sublingual 0.4 mg SUBLINGUAL Q5M PRN 04/17/20 12/25/20 12/25/20 History tablet alprazolam 0.5 mg tablet 1 mg PO BID PRN tab 12/11/20 12/25/20 Unknown History ascorbic acid (vitamin C) [Vitamin 500 mg PO DAILY@1600 12/25/20 12/25/20 12/24/20 History C] calcium 600 mg PO DAILY@1600 12/25/20 12/25/20 12/24/20 History cholecalciferol (vitamin D3) 125 mcg PO DAILY@159912/25/20 12/25/20 12/24/20 History [Vitamin D3] hydrochlorothiazide 25 mg PO DAILY@12/25/20 12/25/20 12/25/20 History isosorbide mononitrate 60 mg PO DAILY@2100 12/25/20 12/25/20 12/24/20 History magnesium 500 mg PO DAILY@159912/25/20 12/25/20 12/24/20 History metoprolol tartrate 100 mg PO DAILY@08 12/25/20 12/25/20 12/25/20 History potassium 99 mg PO DAILY@159912/25/20 12/25/20 12/24/20 History zinc 50 mg PO DAILY@159912/25/20 12/25/20 12/24/20 History Allergies Allergy/AdvReac Type Severity Reaction Status Date / Time No Known Allergies Allergy Verified 12/25/20 14:47 PFSH Acute PFSH: Medical History ASHD (arteriosclerotic heart disease) Bilateral carotid artery stenosis Diabetes Dyslipidemia Hypertension Incomplete heart block Pacemaker Family History Mother CAD (coronary artery disease) Father CAD (coronary artery disease) Brother CAD (coronary artery disease) Sister CAD (coronary artery disease) Chronic kidney disease (CKD) Diabetes Hyperlipidemia Hypertension Stroke Denies family history of Clotting disorder Dementia Suicide Anesthesia complication Bleeding disorder Lung disease Cancer Social History Smoking and tobacco status: former smoker Alcohol intake: never Vitals/I&O/Wt Last Vital Signs Temp 98.0 F 12/25/20 14:43 Pulse 70 12/25/20 18:00 Resp 22 H 12/25/20 19:02 BP 162/82 12/25/20 19:02 Pulse Ox 96 12/25/20 19:02 Weight last 48 hrs Weight 68.039 kg Physical Exam Const: COMMON NORMALS: patient oriented x3 HENMT: COMMON NORMALS: normocephalic and atraumatic HEAD & SCALP: normocephalic and atraumatic Chest: CHEST: Yes Symmetrical chest wall rise Resp: COMMON NORMALS: normal respiratory effort, No retractions, No use of accessory muscles and clear to auscultation bilaterally EFFORT & INSPECTION: Yes symmetric chest movement AUSCULTATION: clear to auscultation bilaterally Cardio: COMMON NORMALS: regular rate, regular rhythm, S1 normal heart sound present, S2 normal heart sound present, No gallops present (Cardio), No murmurs present (Cardio), No rub (Cardio) and Peripheral pulses 2+ throughout RATE: regular rate RHYTHM: regular rhythm HEART SOUNDS: S1 normal heart sound present and S2 normal heart sound present PERIPHERAL PULSES: Peripheral pulses 2+ throughout GI: COMMON NORMALS: Normal to inspection, nondistended, normoactive bowel sounds present, Soft to palpation, non-tender, No hepatosplenomegaly present and no masses AUSCULTATION: Yes normoactive bowel sounds PALPATION: Yes Soft to palpation and Yes No hepatosplenomegaly present RECTAL EXAM: deferred Extremity: COMMON NORMALS: no clubbing, cyanosis or edema and no pedal edema Neuro: COMMON NORMALS: patient oriented x3 Data : 12/25/20 14:56 12/25/20 14:56 A&P Assessment and plan (1) Chest pain: Typical Cardiac chest pain with significant r/f ( DLD , h/o CAD S/P Stent , AGE, DLD ) 2 D Echo TELE NPO after midnight for am Stress Test. Aspirin 75 mg po Daily Plavix 75 mg Po Daily Lipitor 40 mg po Daily IMDUR 60 MG PO Daily Nitro S/L PRN Status: Acute (2) Hypertension: Status: Acute Qualifiers: Hypertension type: essential hypertension Qualified Code(s): I10 - Essential (primary) hypertension (3) CAD (coronary artery disease): Status: Acute (4) Diabetes: Status: Acute Qualifiers: Diabetes mellitus type: type 2 Diabetes mellitus skilled nursing insulin use: without skilled nursing use Diabetes mellitus complication status: with hyperglycemia Qualified Code(s): E11.65 - Type 2 diabetes mellitus with hyperglycemia (5) Dyslipidemia: Status: Acute (6) Pacemaker: Status: Acute Additional A&P Information DVT PPX: Lovenox 40 mg sc daily. Code Status :Full code Disposition :Home Attestations Medical Necessity Statement*: Patient needs to be in hospital for the management and evaluation of typical cardiac chest pain. Coding Level of Care Code Acute Electrical Engineering Director for [facility] Fwd Diagnoses Chest pain R07.9 Hypertension I10 Hypertension type: essential hypertension CAD (coronary artery disease) I25.10 Diabetes E11.65 Diabetes mellitus type: type 2 Diabetes mellitus adjunct faculty for medical terminology insulin use: without skilled nursing use Diabetes mellitus complication status: with hyperglycemia Dyslipidemia E78.5 Pacemaker Z95.0
[2020-12-25] MEDS: isosorbide mononitrate ER 60 mg Tablet PO (19:59)
[2020-12-25] MEDS: aspirin 81 mg EC Tablet PO (19:59)
[2020-12-25] MEDS: clopidogrel 75 mg Tablet PO (19:59)
[2020-12-25] MEDS: atorvastatin 40 mg Tablet PO (19:59)
[2020-12-25] MEDS: ALPRAZolam 0.5 mg Tablet 1 MG PO (20:02)
--- NOTE | 2020-12-25 20:45 | ECG_ITS ---
[facility] Test Date: 2020-12-25 Pat Name: Ariane Perry Department: Room: 267 Gender: Female Burr Picker: : [phone] Requested By: Niru Crook Order Number: [id number] Linden MD: Danny Ro M.D. Measurements Intervals [place] Rate: 70 P: 124 MA: 282 QRS: -72 QRSD: 151 T: 103 QT: 470 QTc: 509 Interpretive Statements ELECTRONIC ATRIAL PACEMAKER MARKED LEFT AXIS DEVIATION [QRS AXIS < -30] INTRAVENTRICULAR CONDUCTION DELAY [130+ ms QRS DURATION] Compared to ECG 12/25/2020 16:28:39 Intraventricular conduction delay now present Left bundle-branch block no longer present Electronically Signed On 12-26-2020 16:49:34 TRAFFIC SIGNAL SUPERVISOR MAINTENANCE by Danny Ro M.D. [id number]
[2020-12-25 21:17] LABS: Troponin 5 6HR 11.84 ng/L (0-10); Troponin 5 6HR Delta -1.16 ng/L (0-12)
[2020-12-26] VITALS (8 sets, daily range): BP systolic 116–155; BP diastolic 65–81; PULSE 69–92; RESP 16–18; TEMP 35.7–37.2; O2SAT 93–97
[2020-12-26 05:48] LABS: Basophils % 0.7 %; Eosinophils # 0.2 10^3/uL (0.0-0.8); Eosinophils % 2.7 %; Hematocrit 38.4 % (37.0-47.0); Hemoglobin 12.7 g/dL (11.5-15.3); Lymphocytes # 1.5 10^3/uL (0.8-4.8); Lymphocytes % 25.9 %; Mean Corpuscular HGB Conc 33.1 g/dL (30.0-36.0); Mean Corpuscular Hemoglobin 30.7 pg (28.0-34.0); Mean Corpuscular Volume 92.8 fL (81-99); Mean Platelet Volume 8.9 fL (7.4-10.4); Monocytes # 0.5 10^3/uL (0.2-0.9); Monocytes % 7.9 %; Neutrophils # 3.66 10^3/uL (1.8-7.7); Neutrophils % 62.6 %; Nucleated Red Blood Cells % 0 %; Platelet Count 160 10^3/cmm (130-400); Red Blood Count 4.14 10^6/uL (4.1-5.3); Red Cell Distribution Width 12.8 % (12.1-15.1); White Blood Count 5.8 10^3/uL (4.0-10.0)
[2020-12-26 06:01] LABS: INR 1.04 (0.8-1.2)
[2020-12-26 06:13] LABS: Alanine Aminotransferase 25 U/L (0-33); Albumin Level 3.9 g/dL (3.5-5.2); Alkaline Phosphatase 100 IU/L (35-105); Anion Gap 13.5 (5-19); Aspartate Amino Transferase 25 U/L (0-32); Blood Urea Nitrogen 14 mg/dL (8-23); Calcium 9.3 mg/dL (8.5-10.5); Carbon Dioxide 28 mmol/L (22-29); Chloride 102 mmol/L (98-107); Globulin 2.1 g/dL (1.3-4.6); Glucose 102 mg/dL (65-115); Magnesium 1.8 mg/dL (1.7-2.3); Osmolality Calculated 291 mOsm/kg (285-295); Potassium 3.5 mmol/L (3.5-5.1); Sodium 140 mmol/L (136-145); Total Bilirubin 0.6 mg/dL (0.15-1.2)
[2020-12-26 06:39] LABS: NT Pro B Type Natriuretic Pept 319 pg/mL (0-450)
--- NOTE | 2020-12-26 07:00 | USCV_ITS ---
Ariane Perry Age: 80 Gender: F : 1940 Exam Date: 12/26/2020 06:29 Ordering Phys: Jeovanny Lam MD Technologist: Shira Gardner Exam Location: [facility] Indication: chest pain BP: 136 / 72 HR: 69 Rhythm: Sinus Technical Quality: Adequate MEASUREMENTS (Male / Female) Normal Values 2D ECHO LV Diastolic Diameter PLAX 3.0 cm 4.2 - 5.9 / 3.9 - 5.3 cm LV Systolic Diameter PLAX 1.8 cm IVS Diastolic Thickness 1.8 cm 0.6 - 1.0 / 0.6 - 0.9 cm IVS Systolic Thickness 1.8 cm LVPW Diastolic Thickness 1.9 cm 0.6 - 1.0 / 0.6 - 0.9 cm LVPW Systolic Thickness 2.5 cm RV Chamber Size 2.8 cm LVOT Diameter 2.0 cm LV Ejection Fraction 2D Teich 71.5 % LV Ejection Fraction MOD 2C 54.1 % LV Ejection Fraction 2C AL 56.6 % LA Diameter 2.6 cm LA Width 3.5 cm LA Height 4.3 cm RA Width 2.4 cm RA Height 3.9 cm Aorta at Sinotubular Diameter 2.3 cm M-MODE LV Diastolic Diameter MM 4.8 cm 4.2 - 5.9 / 3.9 - 5.3 cm LV Systolic Diameter MM 2.6 cm LV Ejection Fraction MM Teich 75.6 % IVS Diastolic Thickness MM 1.7 cm 0.6 - 1.0 / 0.6 - 0.9 cm IVS Systolic Thickness MM 2.1 cm LVPW Diastolic Thickness MM 1.4 cm 0.6 - 1.0 / 0.6 - 0.9 cm LVPW Systolic Thickness MM 2.4 cm Aortic Annulus Diameter 2.5 cm LA Ao Ratio MM 1.1 MV E Point Septal Separation 0.3 cm DOPPLER AV Peak Velocity 144.3 cm/s LVOT Peak Velocity 96.0 cm/s AV Area Cont Eq vti 2.1 cm squared AV Area Cont Eq pk 2.1 cm squared MV Area PHT 5.9 cm squared Mitral E to A Ratio 0.8 MV E' Velocity 46.0 cm/s Mitral E to MV E' Ratio 16.3 Mitral E to LV E' Lateral Ratio 13.7 Mitral E to LV E' Septal Ratio 20.0 TR Peak Velocity 315.6 cm/s TR Peak Gradient 39.8 mmHg TR Mean Velocity 234.8 cm/s TR Mean Gradient 23.8 mmHg TR Velocity Time Integral 96.9 cm Right Atrial Pressure 3.0 mmHg Pulmonary Artery Systolic Pressu 42.8 mmHg PV Peak Velocity 106.0 cm/s RV Acceleration Time 0.1 s RV Ejection Time 0.3 s RV AcT/ET 0.3 FINDINGS Left Ventricle Normal left ventricular size and systolic function, EF 66 %. Mild left ventricular hypertrophy. Abnormal septal motion consistent with conduction abnormality. Grade I/IV diastolic dysfunction (abnormal relaxation filling pattern), normal to mildly elevated filling pressures. Right Ventricle The right ventricle is normal in size and function. Right Atrium Catheter/pacemaker wire in the right atrial cavity. Left Atrium Mildly increased left atrial size. Mitral Valve Thickened mitral valve. Mild mitral annular calcification. Trace mitral valve regurgitation. Aortic Valve Thickened aortic valve. Mild aortic valve regurgitation. Tricuspid Valve Mild tricuspid valve regurgitation. Pulmonic Valve Pulmonic valve not well visualized. Pericardium Normal pericardium without effusion. Aorta Normal ascending aorta dimension. CONCLUSIONS Normal left ventricular size and systolic function, EF 66 %. Mild left ventricular hypertrophy. Abnormal septal motion consistent with conduction abnormality. Grade I/IV diastolic dysfunction (abnormal relaxation filling pattern), normal to mildly elevated filling pressures. Mildly increased left atrial size. Thickened mitral valve. Mild mitral annular calcification. Trace mitral valve regurgitation. Features of aortic valve sclerosis Mild aortic valve regurgitation. Mild tricuspid valve regurgitation. Mild pulmonary hypertension with an estimated pulmonary artery peak systolic pressure of 43 mmHg There is no pericardial effusion. There are no intracardiac masses. Compared to the study from 10/22/2014, there may not be a significant change Dr Macie Weems MD [facility] (Electronically Signed) Final Date: 26 December 2020 11:35 S
--- NOTE | 2020-12-26 07:13 | PC.NURSE ---
Report to Lucita HOUGH
--- NOTE | 2020-12-26 07:18 | ECG_ITS ---
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 Interpretive Statements NAME OF STUDY: LEXISCAN SESTAMIBI STRESS TEST INDICATION: Chest Pain, PROCEDURE: At the baseline, the EKG revealed a sensed, V paced rhythm. The baseline blood pressure was 147/86 mm Hg with a heart rate of 74 beats/min. Lexiscan was infused over a period of 20 seconds. A total of 0.4 milligrams of Lexiscan was infused. The stress phase was continued for a total of 5 minutes. Heart rate at the end of the stress phase was 157/66 with a blood pressure 94. The EKG at the peak infusion revealed no significant changes occasional PVCs were noted. Sestamibi was injected 20 seconds after the Lexiscan infusion. Blood pressure at the end of the recovery phase was 155/65 with a heart rate of 92 per minute. CONCLUSION: 1. No significant EKG changes with the LexiScan infusion 2. No LexiScan induced chest pain or cardiac arrhythmia 3. Normal blood pressure and heart rate response 4. Sestamibi/sestamibi perfusion scan pending; see separate report. Electronically Signed On 12-26-2020 11:52:03 FOUNDER CHAIRMAN AND CHIEF CREATIVE OFFICER by Macie Weems M.D. [id number]
[2020-12-26] MEDS: regadenoson 0.4 Mg/5 ml Syringe IVP (08:35)
[2020-12-26] MEDS: hydroCHLOROthiazide 25 mg Tablet PO (10:12)
[2020-12-26] MEDS: metoprolol tartrate 50 mg Tablet 100 MG PO (10:12)
--- NOTE | 2020-12-26 10:43 | PC.CHAP ---
Pastoral Care Encounter/Spiritual Assessment Type of Contact [] Declined runner on visit [] Patient/Family/Request visit [] Outpatient visit [] Follow-up visit [] Physician referral [] Code/Alert [x] Routine visit [] Staff referral [] Actively dying [] Patient sleeping [] Family support [] [] Out of room [] Palliative care [] [x] Receiving care in room [] Pre-surgical visit [] Trauma [] Long length of stay [] ICU visit [] Other: Relational/Emotional Strength [] Patient feels connected with others/family/visitors/staff [] Distress [] Loneliness/isolation [] Abandonment Spirituality of Patient [] Person of Tiesha [] Attends Orthodox of their Tiesha [] Believes in Prayer [] Reads Bible or Restorationism materials [] There are Spiritual issues to be addressed Wedding Planning Internship Interventions [] Prayer [] Active listening [] Non-anxious presence [] Spiritual/emotional support [] Crisis/trauma care [] Spiritual counseling [] Bereavement support [] Provided bereavement packet [] Provided Bible/devotional materials [] Provided toy/stuffed animal, coloring book to patient or family member [] Provided Communion [] Anointing/[place] [] Salvation [] Completed spiritual assessment [] Other: Impact on Illness or Injury [] Angry [] Fearful [] Anxious [] Often cries [] Exhaustion [] Unable to work [] Unable to attend advent [] Unable to walk/stand [] Unable to read [] Unable to drive [] Unable to eat/drink [] Unable to sleep [] Unable to be with family [] Patient intubated [] Other: Summary Time spent with patient
--- NOTE | 2020-12-26 13:40 | PM.CONSULT ---
Providers/Reason For Consult Consulting Physican/Specialty*: NANCY Weems MD/cardiology Reason for Consult*: Patient with history of coronary artery disease, presenting with chest pain Attending Physician: Jeovanny Lam MD Primary Care Provider: Kassie Toscano History of Present Illness History of Present Illness Ariane Perry is a 80 year old female with a history of atherosclerotic heart disease, hypertension, dyslipidemia, type 2 diabetes and carotid artery disease, presenting with episodes of chest pain. She been having episodes of chest pains since 13 December. She may have these episodes 2 or 3 times a week. Each of these episodes lasts for 5 to 10 minutes and then goes away by itself. Sublingual nitroglycerin gives some relief of pain but not completely. She has no palpitation, dizziness or syncopal episode. No other associated symptoms. The pain is in the lower substernal area, radiating across the chest. No definite precipitating factors. Intensity of the pain is mild to moderate. She came to the hospital since she had 2 episodes of pain within 24 hours. She denies any fever or chills. No cough. She has been compliant with medications. She had a cardiac catheterization followed by PCI of the LAD lesion in 2008. She is known to have symptomatic bradycardia and had a permanent pacer implantation. She also is known to have ventricular arrhythmia-symptomatic PVCs, responding to the beta-blockers. She has bilateral carotid artery disease, 50 to 79% stenosis on the left side and 16 to 49% stenosis on the right side. No recent TIAs or myelosis. Review of Systems Narrative: CONSTITUTIONAL: No fever or chills. EYES: No blurring of vision or other visual disturbances lately. ENT: No hoarseness of voice, auditory disturbances or sore throat. CARDIOVASCULAR: As mentioned above. RESPIRATORY: No significant cough. GASTROINTESTINAL: No hematemesis or melena. GENITOURINARY: No dysuria or hematuria. INTEGUMENTARY: No skin rashes or history of skin cancer. NEURO: No transient ischemic attacks or amaurosis. PSYCHIATRIC: No history of psychosis or major depression. HEMATOLOGIC: No bleeding disorders or significant anemia. ENDOCRINE: No history of polyuria or polydipsia. MUSCULOSKELETAL: No recent joint pain or swelling. ALLERGY/IMMUNOLOGY: As mentioned above. Meds/Allergies Home Medications and Allergies Home Medications Medication Instructions Recorded Confirmed Last Taken Type aspirin 81 mg tablet,delayed 81 mg PO DAILY@2100 10/20 02/17/21 02/16/21 History release atorvastatin 40 mg tablet 40 mg PO DAILY@209904/17/20 12/25/20 12/24/20 History clopidogrel 75 mg tablet 75 mg PO DAILY@209904/17/20 12/25/20 12/24/20 History folic acid 400 mcg tablet 0.4 mg PO DAILY@159904/17/20 12/25/20 12/24/20 History multivitamin 1 tab PO DAILY@159904/17/20 12/25/20 12/24/20 History nitroglycerin 0.4 mg sublingual 0.4 mg SUBLINGUAL Q5M PRN 04/17/20 12/25/20 12/25/20 History tablet alprazolam 0.5 mg tablet 1 mg PO BID PRN tab 12/11/20 12/25/20 Unknown History ascorbic acid (vitamin C) [Vitamin 500 mg PO DAILY@159912/25/20 12/25/20 12/24/20 History C] calcium 600 mg PO DAILY@159912/25/20 12/25/20 12/24/20 History cholecalciferol (vitamin D3) 125 mcg PO DAILY@159912/25/20 12/25/20 12/24/20 History [Vitamin D3] hydrochlorothiazide 25 mg PO DAILY@12/25/20 12/25/20 12/25/20 History magnesium 500 mg PO DAILY@159912/25/20 12/25/20 12/24/20 History metoprolol tartrate 100 mg PO DAILY@12/25/20 12/25/20 12/25/20 History potassium 99 mg PO DAILY@159912/25/20 12/25/20 12/24/20 History zinc 50 mg PO DAILY@159912/25/20 12/25/20 12/24/20 History isosorbide mononitrate 90 mg PO DAILY@2099 #0 tab 12/26/20 12/25/20 12/24/20 Rx Allergies Allergy/AdvReac Type Severity Reaction Status Date / Time No Known Allergies Allergy Verified 12/25/20 14:47 Current Medications Current Medications Generic Name Dose Route Start Last Admin Trade Name Freq PRN Reason Stop Dose Admin Alprazolam 1 mg 12/25/20 19:00 12/25/20 20:02 Alprazolam 0.5 Mg Tablet PO 1 mg BID PRN Administration Anxiety Aspirin 81 mg 12/25/20 21:00 12/25/20 19:59 Aspirin 81 Mg Ec Tablet PO 81 mg DAILY@2100 MICHA Administration Atorvastatin Calcium 40 mg 12/25/20 21:00 12/25/20 19:59 Atorvastatin 40 Mg Tablet PO 40 mg DAILY@2100 MICHA Administration Clopidogrel Bisulfate 75 mg 12/25/20 21:00 12/25/20 19:59 Clopidogrel 75 Mg Tablet PO 75 mg DAILY@2100 MICHA Administration Enoxaparin Sodium 40 mg 12/25/20 19:30 12/25/20 20:05 Enoxaparin 40 Mg/0.4 Ml Syringe SUBCUT Not Given Q24H [facility] Hydrochlorothiazide 25 mg 12/26/20 08:00 12/26/20 10:12 Hydrochlorothiazide 25 Mg Tablet PO 25 mg DAILY@08 MICHA Administration Isosorbide Mononitrate 60 mg 12/25/20 21:00 12/25/20 19:59 Isosorbide Mononitrate Er 60 Mg Tablet PO 60 mg DAILY@2100 [facility] Administration Metoprolol Tartrate 100 mg 12/26/20 08:00 12/26/20 10:12 Metoprolol Tartrate 50 Mg Tablet PO 100 mg DAILY@08 MICHA Administration PFSH Acute PFSH: Medical History ASHD (arteriosclerotic heart disease) Bilateral carotid artery stenosis Diabetes Dyslipidemia Hypertension Incomplete heart block Pacemaker Family History Mother CAD (coronary artery disease) Father CAD (coronary artery disease) Brother CAD (coronary artery disease) Sister CAD (coronary artery disease) Chronic kidney disease (CKD) Diabetes Hyperlipidemia Hypertension Stroke Denies family history of Clotting disorder Dementia Suicide Anesthesia complication Bleeding disorder Lung disease Cancer Social History Smoking and tobacco status: former smoker Alcohol intake: never Vitals/I&O/Wt Last Vital Signs Temp 97.8 F 12/26/20 11:06 Pulse 69 12/26/20 11:06 Resp 16 12/26/20 11:06 BP 142/72 12/26/20 11:06 Pulse Ox 95 12/26/20 11:06 12/25/20 12/26/20 12/26/20 22:59 06:59 14:59 Output Total 0 / 0 Balance 0 / 0 Weight last 48 hrs Weight 161 lb 1.6 oz Weight 150 lb Physical Exam Narrative: EXAM NARRATIVE: GENERAL: The patient is alert and oriented times three. Not in any acute distress. HEENT: No significant pallor, icterus or lymphadenopathy. Pupils are symmetrical.. Oral cavity: There are no mucous membrane lesions. Funduscopic examination: Fundus is not visualized. NECK: Trachea appears to be central. No masses noted. No JVD or thyromegaly appreciated. No carotid bruit. RESPIRATORY: Chest is symmetrical. No intercostals muscle retraction or any accessory muscle activation. There is no chest wall tenderness. Breath sounds are heard bilaterally. No rales or rhonchi heard. No evidence of any consolidation. BREASTS: Deferred. HEART: The heart sounds are normal. No S3 or S4. Short systolic murmur in the left sternal border. No diastolic murmurs. No pericardial rub. ABDOMEN: No vessel pulsations or distention. No tenderness. No organomegaly appreciated. No abdominal bruit. Bowel sounds are normally heard. : Deferred. RECTAL: Deferred. LYMPHATIC: No lymphadenopathy noted in the neck or groin. EXTREMITIES: No edema or cyanosis. No clubbing. The pulses are symmetrical bilaterally. The radial, femoral, dorsalis pedis and the posterior tibial pulses are palpated and found to be in good volume and amplitude. MUSCULOSKELETAL: Gait is normal. There is no joint deformity or swelling noted. No joint tenderness or any effusion. The shoulder and hip joints appear to have normal range of motion. SKIN: There are no significant scars or skin rash noted. NEUROPSYCHIATRIC: The patient is alert and oriented x3. Appears to be in a good mood. The higher functions are grossly within normal limits. No tremors or rigidity noted. Data Labs: Other Labs: Laboratory Last Values WBC 5.8 10^3/uL (4.0- 10.0) 12/26/20 05:03 RBC 4.14 10^6/uL (4.1 -5.3) 12/26/20 05:03 Hgb 12.7 g/dL (11.5-1 5.3) 12/26/20 05:03 Hct 38.4 % (37.0-47.0 ) 12/26/20 05:03 MCV 92.8 fL (81-99) 12/26/20 05:03 MCH 30.7 pg (28.0-34. 0) 12/26/20 05:03 MCHC 33.1 g/dL (30.0-3 6.0) 12/26/20 05:03 RDW 12.8 % (12.1-15.1 ) 12/26/20 05:03 Plt Count 160 10^3/cmm (130 -400) 12/26/20 05:03 MPV 8.9 fL (7.4-10.4) 12/26/20 05:03 Neut % (Auto) 62.6 % 12/26/20 05:03 Lymph % (Auto) 25.9 % 12/26/20 05:03 [place] % (Auto) 7.9 % 12/26/20 05:03 Eos % (Auto) 2.7 % 12/26/20 05:03 Baso % (Auto) 0.7 % 12/26/20 05:03 Neut # (Auto) 3.66 10^3/uL (1.8 -7.7) 12/26/20 05:03 Lymph # (Auto) 1.5 10^3/uL (0.8- 4.8) 12/26/20 05:03 [place] # (Auto) 0.5 10^3/uL (0.2- 0.9) 12/26/20 05:03 Eos # (Auto) 0.2 10^3/uL (0.0- 0.8) 12/26/20 05:03 Baso # (Auto) 0.0 10^3/uL (0.0- 0.1) 12/26/20 05:03 Nucleated RBC % (a uto) 0 % 12/26/20 05:03 Nucleated RBCs # 0.0 /100WBC 12/26/20 05:03 PT 13.90 SECONDS (12 .1-14.9) 12/26/20 05:03 INR 1.04 (0.8-1.2) 12/26/20 05:03 Sodium 140 mmol/L (136-1 45) 12/26/20 05:03 Potassium 3.5 mmol/L (3.5-5 .1) 12/26/20 05:03 Chloride 102 mmol/L (98-10 7) 12/26/20 05:03 Carbon Dioxide 28 mmol/L (22-29) 12/26/20 05:03 Anion Gap 13.5 (5-19) 12/26/20 05:03 BUN 14 mg/dL (8-23) 12/26/20 05:03 Creatinine 0.8 mg/dL (0.5-0. 9) 12/26/20 05:03 GFR Calculation Not Reportable 12/26/20 05:03 Glucose 102 mg/dL (65-115 ) 12/26/20 05:03 POC Glucose 109 mg/dL (70-110 ) 12/25/20 15:05 Calculated Osmolal ity 291 mOsm/kg (285- 295) 12/26/20 05:03 Calcium 9.3 mg/dL (8.5-10 .5) 12/26/20 05:03 Magnesium 1.8 mg/dL (1.7-2. 3) 12/26/20 05:03 Total Bilirubin 0.6 mg/dL (0.15-1 .2) 12/26/20 05:03 AST 25 U/L (0-32) 12/26/20 05:03 ALT 25 U/L (0-33) 12/26/20 05:03 Alkaline Phosphata se 100 IU/L (35-105) 12/26/20 05:03 Troponin T Baselin e 13 ng/L (0-10) H 12/25/20 14:56 Troponin T 120 Min manuel 12.63 ng/L (0-10) H 12/25/20 16:53 Delta Troponin T -0.37 ABS# (0-10) L 12/25/20 16:53 Troponin T Hi Sens 6Hr 11.84 ng/L (0-10) H 12/25/20 20:30 Troponin T Hi Sens 6Hr Delta -1.16 ng/L (0-12) L 12/25/20 20:30 NT-Pro-B Natriuret Pep 319 pg/mL (0-450) 12/26/20 05:03 Total Protein 6.0 g/dL (6.6-8.7 ) L 12/26/20 05:03 Albumin 3.9 g/dL (3.5-5.2 ) 12/26/20 05:03 Globulin 2.1 g/dL (1.3-4.6 ) 12/26/20 05:03 TSH 6.30 uIU/mL (0.27 -4.20) H 12/26/20 05:03 Imaging^: Echo: My impression: Echocardiogram from today 12/26/2020 revealed Normal left ventricular size and systolic function, EF 66 %. Mild left ventricular hypertrophy. Abnormal septal motion consistent with conduction abnormality. Grade I/IV diastolic dysfunction (abnormal relaxation filling pattern), normal to mildly elevated filling pressures. Mildly increased left atrial size. Thickened mitral valve. Mild mitral annular calcification. Trace mitral valve regurgitation. Features of aortic valve sclerosis Mild aortic valve regurgitation. Mild tricuspid valve regurgitation. Mild pulmonary hypertension with an estimated pulmonary artery peak systolic pressure of 43 mmHg There is no pericardial effusion. There are no intracardiac masses. Compared to the study from 10/22/2014, there may not be a significant change Myocardial perfusion imaging: My impression: The MPI from today-12/26/2020 . There was uniform myocardial tracer uptake with no significant perfusion of normalities. Normal LV ejection fraction. No significant wall motion normalities. EKG^: EKG 1: My Interpretation: The EKG revealed 100% a paced, V sensed rhythm. Nonspecific IVCD. Left axis deviation. No acute ST-T changes. A&P Assessment and plan (1) Chest pain: This patient's chest pain is very atypical. In view of the unremarkable myocardial perfusion imaging and echocardiogram, most likely the pain is noncardiac. The limitations of the stress test were discussed with the patient in detail. If she continues to remain stable with no recurrence of chest pain, it may be appropriate to discharge her home and consider a cardiac catheterization, if she has significant recurrence of the chest pain. This was discussed with the patient in detail. Patient understood this well. Status: Resolved Qualifiers: Chest pain type: other chest pain Qualified Code(s): R07.89 - Other chest pain (2) ASHD (arteriosclerotic heart disease): Ms. Perry is known to have coronary artery disease and had PCI of the LAD in 2008. I may increase the dose of the isosorbide mononitrate to 90 mg p.o. daily. Continue on your medications as it is. Status: Chronic (3) Pacemaker: Patient seems to have normal pacemaker function. May continue on the current monitoring schedule. Status: Acute (4) Hypertension: Blood pressure is a stage II. This needs to be closely monitored. The higher dose of isosorbide mononitrate might be helpful Status: Chronic Qualifiers: Hypertension type: essential hypertension Qualified Code(s): I10 - Essential (primary) hypertension (5) Bilateral carotid artery stenosis: Since the patient has no specific symptoms of carotid insufficiency, may not require any specific intervention. Advised to continue on the current measures. Status: Acute (6) Diabetes: Aggressive management of the diabetes would be appropriate. Status: Suspected Qualifiers: Diabetes mellitus complication status: with hyperglycemia Diabetes mellitus termite treater helper insulin use: without halfway use Diabetes mellitus type: type 2 Qualified Code(s): E11.65 - Type 2 diabetes mellitus with hyperglycemia (7) Dyslipidemia: May continue on the current measures. Status: Chronic Additional A&P Information The patient is advised to ambulate on the telemetry. If she continues to remain stable, may be discharged home from a cardiac standpoint. Please make an appointment to be seen by the nurse practitioner in 2 weeks. I may see her in the office as scheduled. Coding Level of Care Code Acute Caustic Room Operator for [facility] Fwd Diagnoses Chest pain R07.89 Chest pain type: other chest pain ASHD (arteriosclerotic heart disease) I25.10 Pacemaker Z95.0 Hypertension I10 Hypertension type: essential hypertension Bilateral carotid artery stenosis I65.23 Diabetes E11.65 Diabetes mellitus complication status: with hyperglycemia Diabetes mellitus halfway insulin use: without halfway use Diabetes mellitus type: type 2 Dyslipidemia E78.5
--- NOTE | 2020-12-26 15:01 | P.DS_ITS ---
Discharge Providers Date of Admission: 12/25/20 18:24 Date of Discharge: December 26, 2020 Attending Provider at Admission: Poonam Jack MD Attending Provider at Discharge: Jeovanny Lam MD Primary Care Provider: Kassie Toscano Diagnoses at Discharge Discharge Diagnosis (1) Chest pain: Status: Resolved Permanent problem details: Atypical chest pain likely MSK Qualifiers: Chest pain type: other chest pain Qualified Code(s): R07.89 - Other chest pain (2) ASHD (arteriosclerotic heart disease): Status: Chronic (3) Pacemaker: Status: Acute (4) Hypertension: Status: Chronic Qualifiers: Hypertension type: essential hypertension Qualified Code(s): I10 - Essential (primary) hypertension (5) Bilateral carotid artery stenosis: Status: Acute (6) Diabetes: Status: Suspected Qualifiers: Diabetes mellitus complication status: with hyperglycemia Diabetes mellitus usp insulin use: without usp use Diabetes mellitus type: type 2 Qualified Code(s): E11.65 - Type 2 diabetes mellitus with hyperglycemia (7) Dyslipidemia: Status: Chronic Reason for Visit Reason for Visit: CP Hospital Course Hospital Course 80-year-old female with PMH of CAD S/P Stent, HTN, DLD , S/P ppm 2/2 syncope and collapse about 7 years backs back came in today with c/o chest pain. She reports pressure like chest pain is located in the center of her chest.Started around 11 am, chest pain was resolved with 3 sL nitro. She was having similar chest pain for about 2 weeks she was seen by on 12/13/2020 as outpatient and the plan at that time was do to an Stress test. Her previous episodes of chest pain in the past had spontaneous resolution. At the time of my evaluation She was chest pain-free. She was worked up for above complain. EKG: A Paced with marked LAD. Troponin : Baseline : 13 2H : 12 2H D: -0.37 , 6H: 11.84 , 6H D : -1.16 Xray chest : Dual lead LEFT subclavian pacer. Lungs are clear and well expanded. No pleural effusion or pneumothorax. Stress test: No significant EKG changes with the LexiScan infusion. No LexiScan induced chest pain or cardiac arrhythmia. Normal blood pressure and heart rate response. Unremarkable myocardial perfusion imaging: Segmental wall motion analysis revealing no gross wall motion normalities. Normal LV ejection fraction 74%. Normal LV volume. 2D Echo : Normal left ventricular size and systolic function, EF 66 %. Mild left ventricular hypertrophy. Abnormal septal motion. consistent with conduction abnormality. Grade I/IV diastolic dysfunction (abnormal relaxation filling pattern), normal to mildly elevated filling pressures. Mildly increased left atrial size. Thickened mitral valve. Mild mitral annular calcification. Trace mitral valve regurgitation. Features of aortic valve sclerosis Mild aortic valve regurgitation. Mild tricuspid valve regurgitation. Mild pulmonary hypertension with an estimated pulmonary artery peak systolic pressure of 43 mmHg. Throughout the hospital stay she remained chest pain-free, she was continued on her home medication, given her significant history of coronary artery disease status post, she was continued on aspirin, Plavix, Lipitor, metoprolol tartrate. Cardiology was on board , patient was seen and evaluated by Dr. Weems, and it was decided that we should increase the dose of Imdur from 60 to 90 mg p.o. daily.Patient responded well to the current medical management and is being discharged in stable condition to home. She will continue to follow with Dr. Weems as an outpatient. Physical Exam Const: COMMON NORMALS: patient oriented x3 HENMT: COMMON NORMALS: normocephalic and atraumatic HEAD & SCALP: normocephalic and atraumatic Chest: CHEST: Yes Symmetrical chest wall rise Resp: COMMON NORMALS: normal respiratory effort, No retractions, No use of accessory muscles and clear to auscultation bilaterally EFFORT & INSPECTION: Yes symmetric chest movement AUSCULTATION: clear to auscultation bilaterally Cardio: COMMON NORMALS: regular rate, regular rhythm, S1 normal heart sound present, S2 normal heart sound present, No gallops present (Cardio), No murmurs present (Cardio), No rub (Cardio) and Peripheral pulses 2+ throughout RATE: regular rate RHYTHM: regular rhythm HEART SOUNDS: S1 normal heart sound present and S2 normal heart sound present PERIPHERAL PULSES: Peripheral pulses 2+ throughout GI: COMMON NORMALS: Normal to inspection, nondistended, normoactive bowel sounds present, Soft to palpation, non-tender, No hepatosplenomegaly present and no masses AUSCULTATION: Yes normoactive bowel sounds PALPATION: Yes Soft to palpation and Yes No hepatosplenomegaly present RECTAL EXAM: deferred Extremity: COMMON NORMALS: no clubbing, cyanosis or edema and no pedal edema Neuro: COMMON NORMALS: patient oriented x3 Discharge Data Data Completed and Pending: Completed Studies During Hospitalization Category Date Time Status Cardiac Stress Te st MIBI [Sestamibi Stress Test Reque st Exams 12/26/20 07:18 Completed ] Routine XR chest 1V gwendolyn ble [id number] Stat Exams 12/25/20 14:45 Completed NM mervat perf SPECT r/s* [id number] Routin e Nuc Med 12/26/20 19:10 Completed CV echo complete* [id number] Routine Ultrasound 12/26/20 07:00 Completed Pending at discharge Category Date Time Status Complete Blood Co unt w/Auto AM LABS Lab 12/27/20 04:00 Ordered Complete Blood Co unt w/Auto AM LABS Lab 12/28/20 04:00 Ordered Comprehensive Met abolic Panel AM LA BS Lab 12/27/20 04:00 Ordered Comprehensive Met abolic Panel AM LA BS Lab 12/28/20 04:00 Ordered Labs from last 24 hours 12/26/20 12/26/20 12/26/20 05:03 05:03 05:03 WBC RBC Hgb Hct MCV MCH MCHC RDW Plt Count MPV Neut % (Auto) Lymph % (Auto) [place] % (Auto) Eos % (Auto) Baso % (Auto) Neut # (Auto) Lymph # (Auto) [place] # (Auto) Eos # (Auto) Baso # (Auto) Nucleated RBC % (a uto) Nucleated RBCs # PT 13.90 INR 1.04 Sodium 140 Potassium 3.5 Chloride 102 Carbon Dioxide 28 Anion Gap 13.5 BUN 14 Creatinine 0.8 GFR Calculation Not Reportable Glucose 102 POC Glucose Calculated Osmolal ity 291 Calcium 9.3 Magnesium 1.8 Total Bilirubin 0.6 AST 25 ALT 25 Alkaline Phosphata se 100 Troponin T Baselin e Troponin T 120 Min manuel Delta Troponin T Troponin T Hi Sens 6Hr Troponin T Hi Sens 6Hr Delta NT-Pro-B Natriuret Pep 319 Total Protein 6.0 L Albumin 3.9 Globulin 2.1 TSH 6.30 H 12/26/20 12/25/20 12/25/20 05:03 20:30 16:53 WBC 5.8 RBC 4.14 Hgb 12.7 Hct 38.4 MCV 92.8 MCH 30.7 MCHC 33.1 RDW 12.8 Plt Count 160 MPV 8.9 Neut % (Auto) 62.6 Lymph % (Auto) 25.9 [place] % (Auto) 7.9 Eos % (Auto) 2.7 Baso % (Auto) 0.7 Neut # (Auto) 3.66 Lymph # (Auto) 1.5 [place] # (Auto) 0.5 Eos # (Auto) 0.2 Baso # (Auto) 0.0 Nucleated RBC % (a uto) 0 Nucleated RBCs # 0.0 PT INR Sodium Potassium Chloride Carbon Dioxide Anion Gap BUN Creatinine GFR Calculation Glucose POC Glucose Calculated Osmolal ity Calcium Magnesium Total Bilirubin AST ALT Alkaline Phosphata se Troponin T Baselin e Troponin T 120 Min manuel 12.63 H Delta Troponin T -0.37 L Troponin T Hi Sens 6Hr 11.84 H Troponin T Hi Sens 6Hr Delta -1.16 L NT-Pro-B Natriuret Pep Total Protein Albumin Globulin TSH 12/25/20 12/25/20 12/25/20 15:05 14:56 14:56 WBC 6.5 RBC 4.28 Hgb 13.3 Hct 38.8 MCV 90.7 MCH 31.1 MCHC 34.3 RDW 12.7 Plt Count 208 MPV 8.6 Neut % (Auto) 63.9 Lymph % (Auto) 24.8 [place] % (Auto) 7.9 Eos % (Auto) 2.5 Baso % (Auto) 0.6 Neut # (Auto) 4.14 Lymph # (Auto) 1.6 [place] # (Auto) 0.5 Eos # (Auto) 0.2 Baso # (Auto) 0.0 Nucleated RBC % (a uto) 0 Nucleated RBCs # 0.0 PT INR Sodium 137 Potassium 3.7 Chloride 97 L Carbon Dioxide 32 H Anion Gap 11.7 BUN 12 Creatinine 1.0 H GFR Calculation Not Reportable Glucose 88 POC Glucose 109 Calculated Osmolal ity 283 L Calcium 9.5 Magnesium Total Bilirubin 0.7 AST 31 ALT 30 Alkaline Phosphata se 138 H Troponin T Baselin e Troponin T 120 Min manuel Delta Troponin T Troponin T Hi Sens 6Hr Troponin T Hi Sens 6Hr Delta NT-Pro-B Natriuret Pep Total Protein 6.9 Albumin 4.6 Globulin 2.3 TSH 12/25/20 14:56 WBC RBC Hgb Hct MCV MCH MCHC RDW Plt Count MPV Neut % (Auto) Lymph % (Auto) [place] % (Auto) Eos % (Auto) Baso % (Auto) Neut # (Auto) Lymph # (Auto) [place] # (Auto) Eos # (Auto) Baso # (Auto) Nucleated RBC % (a uto) Nucleated RBCs # PT INR Sodium Potassium Chloride Carbon Dioxide Anion Gap BUN Creatinine GFR Calculation Glucose POC Glucose Calculated Osmolal ity Calcium Magnesium Total Bilirubin AST ALT Alkaline Phosphata se Troponin T Baselin e 13 H Troponin T 120 Min manuel Delta Troponin T Troponin T Hi Sens 6Hr Troponin T Hi Sens 6Hr Delta NT-Pro-B Natriuret Pep Total Protein Albumin Globulin TSH Vitals: Last Vital Signs Temp 97.8 F 12/26/20 11:06 Pulse 69 12/26/20 11:06 Resp 16 12/26/20 11:06 BP 142/72 12/26/20 11:06 Pulse Ox 95 12/26/20 11:06 Discharge Plan Discharge Patient Disposition: Home Condition: Stable Prescriptions: Continued clopidogrel [Plavix] 75 mg tablet 75 mg PO DAILY@2100 RF: 0 nitroglycerin [Nitrostat] 0.4 mg tablet, sublingual 0.4 mg SUBLINGUAL Q5M PRN (Reason: chest pains) RF: 0 multivitamin Tablet 1 tab PO DAILY@1600 RF: 0 folic acid 400 mcg tablet 0.4 mg PO DAILY@1600 RF: 0 atorvastatin 40 mg tablet 40 mg PO DAILY@2100 RF: 0 aspirin [Adult Low Dose Aspirin] 81 mg tablet,delayed release (DR/EC) 81 mg PO DAILY@2100 RF: 0 alprazolam 0.5 mg tablet 1 mg PO BID PRN (Reason: Anxiety) RF: 0 calcium 600 mg Capsule 600 mg PO DAILY@1600 RF: 0 magnesium 500 mg Tablet 500 mg PO DAILY@1600 RF: 0 metoprolol tartrate 100 mg tablet 100 mg PO DAILY@08 RF: 0 potassium 99 mg Tablet 99 mg PO DAILY@1600 RF: 0 Vitamin C 500 mg Tablet 500 mg PO DAILY@1600 RF: 0 hydrochlorothiazide 25 mg Tablet 25 mg PO DAILY@08 RF: 0 zinc 50 mg Capsule 50 mg PO DAILY@1600 RF: 0 Vitamin D3 125 mcg (5,000 unit) Tablet 125 mcg PO DAILY@1600 RF: 0 Changed isosorbide mononitrate 60 mg tablet extended release 24 hr 90 mg PO DAILY@2100 Qty: 0 RF: 0 Discharge Orders: Discharge Order (Routine); Ordered 12/26/20 Ordered By: Jeovanny Lam Referrals: Kassie Toscano [Primary Care Provider] - 01/01/21 11:00 am Emma Clinton FNP [Nurse Practitioner] - 01/06/21 10:00 am Discharge Diet: Low Salt Discharge Activity: Resume usual activity Patient Instructions: Chest Pain (DC), Coronary Artery Disease in Women (DC), Hypertension (DC), Chest Pain Stoplight Discharge Attestations Time Spent in Discharge Care*: greater than 30 min Specific Discharge Activities: educating patient, educating and/or supporting family/caregiver, discussing with pcp/other providers, discussing with welfare case worker/social workers/dc planners, documenting/other paperwork and evaluating patient/reviewing data Status at Discharge: Cognitive status at discharge: cognitively intact , Behavioral status at discharge: cooperative , Functional status at discharge: independent ambulation Overall status at discharge: patient is back to baseline Quality Metrics Clinical Quality Measures During this hospital stay, did patient experience: None Coding Level of Care Code 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 Fwd Exam Detailed Diagnoses Chest pain R07.89 Chest pain type: other chest pain ASHD (arteriosclerotic heart disease) I25.10 Pacemaker Z95.0 Hypertension I10 Hypertension type: essential hypertension Bilateral carotid artery stenosis I65.23 Diabetes E11.65 Diabetes mellitus complication status: with hyperglycemia Diabetes mellitus usp insulin use: without terminal press operator use Diabetes mellitus type: type 2 Dyslipidemia E78.5
--- NOTE | 2020-12-26 15:25 | PC.NURSE ---
DISCHARGE INSTRUCTIONS DISCHARGE INSTRUCTIONS GIVEN PER THIS NURSE - SCRIPT CALLED TO SANTA PER THIS NURSE - PT VERBALIZES UNDERSTANDING
--- NOTE | 2020-12-26 19:10 | NMCV_ITS ---
NM mervat perf SPECT r/s* [id number] Ariane Perry Age: 80 Gender: F : 1940 Exam Date: 12/26/2020 19:10 Ordering Phys: Jeovanny Lam MD Technologist: COURTNEY Fink Exam Location: [facility] Indications: Chest pain STRESS TEST Please see separate stress test report in [facility] for full findings IMAGE PROTOCOL Rest/Stress 1 Lexiscan Day Radiopharmaceutical Dose (mCi) Administration Site Administered by Rest: Tc-99m 11.0 IV COURTNEY Tyson Sestamibi Stress:Tc-99m 32.7 IV COURTNEY Fink Sestaminita Rest: 26-Dec-2020 60 Discovery 630 Stress: 26-Dec-2020 45 Discovery 630 0.4mg Lexiscan. Images obtained in supine and prone position. SPECT RESULTS Technical Quality: Excellent Raw Data Analysis: Normal Image Corrections: No attenuation or motion correction applied Summed Stress Score: 0 Summed Rest Score: 4 Summed Difference Score: 0 PERFUSION FINDINGS Fairly uniform myocardial tracer uptake. No significant perfusion abnormalities were noted FUNCTIONAL RESULTS (calculated via Gated SPECT) Stress Image LV EF (%): 74 Stress EDV (mL):61 TID: 0.87 Stress ESV (mL):16 FUNCTIONAL FINDINGS: Segmental wall motion analysis revealing no gross wall motion normalities. IMPRESSIONS 1. Unremarkable myocardial perfusion imaging 2. Segmental wall motion analysis revealing no gross wall motion normalities. 3. Normal LV ejection fraction 74%. 4. Normal LV volume. No significant coronary ischemia, based on the above findings Dr Macie Weems MD [facility] (Electronically Signed) Final Date: 26 December 2020 11:28 S
== END 2020-12-26 16:08 | disposition home or self-care (01) ==
LOC: ER 18:28 → MEDSURG 18:50
PROVIDERS: Nurse Practitioner Family; Admitting Provider Internal Medicine; Emergency Provider Emergency Medicine; PCP Registered Nurse; Visit Provider Internal Medicine
DX: R07.89 Other chest pain (principal); I25.10 Atherosclerotic heart disease of native coronary artery without angina pectoris; Z95.0 Presence of cardiac pacemaker; I10 Essential (primary) hypertension; I65.23 Occlusion and stenosis of bilateral carotid arteries; E11.65 Type 2 diabetes mellitus with hyperglycemia; E78.5 Hyperlipidemia, unspecified; Z79.4 Long term (current) use of insulin; Z95.5 Presence of coronary angioplasty implant and graft; M19.90 Unspecified osteoarthritis, unspecified site; Z79.82 Long term (current) use of aspirin
CPT/HCPCS: 36415; 36416; 71045; 78452; 80053; 82962; 83735; 83880; 84443; 84484; 85025; 85610; 93005; 93017; 93306; 99285; A9500; G0378; J2785

== ENCOUNTER → 2021-02-18 11:24 | Outpatient (BNVA) | payer MEDICARE, OTHER, SELFPAY | PROVIDERS: PCP Registered Nurse; Visit Provider Internal Medicine Cardiovascular Disease | DX: R06.02 Shortness of breath (principal); R07.9 Chest pain, unspecified; E78.5 Hyperlipidemia, unspecified; I77.9 Disorder of arteries and arterioles, unspecified | CPT/HCPCS: 80048; 80061 ==

== ENCOUNTER 2021-05-22 09:44 | Outpatient (CLI) | payer MEDICARE, OTHER, SELFPAY ==
--- NOTE | 2021-05-22 11:00 | USCV_ITS ---
Ariane Perry Age: 80 Gender: F : 1940 Exam Date: 05/22/2021 10:09 Ordering Phys: Macie Weems MD ([email or web address]) Technologist: Berkley Jessica Exam Location: [facility] [place] Indication: disorder of arteries and arterioles, unspecified Risk Factors: Previous Vascular Surgery: Right Brachial BP: / Left Brachial BP: / Right Left Velocity (cm/s) Spectral Plaque Velocity (cm/s) Spectral Plaque Syst/Diast Broadening Syst/Diast Broadening 39.40/ 11.20 Prox CCA 60.70 / 11.10 30.20/ 12.50 Mid CCA 30.90 / 8.50 23.70/ 7.40 Hetro Distal CCA 31.20 / 9.00 Darryn 89.30/ 19.80 Hetro Prox ICA 147.60/ 41.90 Hetro 153.80/28.90 Mid ICA 169.90/ 44.20 Hetro 89.40/ 18.40 Distal ICA 118.70/ 27.00 525.00 Darryn ECA 113.60 3.90 ICA/CCA 2.98 Antegrade Vertebral Antegrade 35.20/ 9.10 cm/s 20.40/ 4.90 cm/s Tri Subclavian Tri 163.1 140.7 0 0 FINDINGS Moderate to heavy dense irregular plaques at the right bifurcation and proximal to mid internal carotid artery on the right side. Delayed peaking waveforms in the distal right internal carotid artery Moderate to heavy heterogeneous plaques at the left bifurcation and proximal internal carotid artery Antegrade flow in the vertebral arteries bilaterally Heavy heterogeneous plaques at the right proximal external carotid artery with a markedly elevated velocity CONCLUSIONS Moderate to heavy heterogeneous plaques at the left bifurcation and proximal internal carotid artery elevated Doppler velocities, consistent with 50 to 69% stenosis. Moderate to heavy plaques in the right internal carotid artery with abnormal Doppler waveforms, the stable of greater than 50% stenosis. Markedly elevated velocity in the right external carotid artery, suggestive of high-grade stenosis Compared to the study from 04/30/2020, there seems to be some worsening of the stenosis on the right side Consider CTA to better evaluate the distal artery on the right side Dr Macie Weems MD [facility] (Electronically Signed) Final Date: 23 May 2021 09:07 S
== END 2021-05-22 09:45 | disposition home or self-care (01) ==
PROVIDERS: PCP Registered Nurse; Visit Provider Internal Medicine Cardiovascular Disease
DX: I77.9 Disorder of arteries and arterioles, unspecified (principal); E78.5 Hyperlipidemia, unspecified; I65.23 Occlusion and stenosis of bilateral carotid arteries
CPT/HCPCS: 93880

== ENCOUNTER 2021-06-02 07:45 | Outpatient (CLI) | payer MEDICARE, OTHER, SELFPAY ==
--- NOTE | 2021-06-02 08:00 | CT_ITS ---
WS: [id number] Exam: CT angio head neck* [id number] Date/Time of Exam: 06/02/2021 8:04 AM Reason For Exam: I65.23 - Occlusion and stenosis of bilateral carotid santana... DLP: 1984.[address] scans at [facility] use at least one of these dose optimization techniques: automat ed exposure control; mA and/or kV adjustment per patient size (includes targeted exams where dose is matched to clinical indication); or iterative reconstruction. CTA of the head and neck is performed in the axial plane with sagittal and coronal reformatted images . Intravenous contrast was administered. CTA of the neck. Compared to most recent exam performed 06/20/2018 The bilateral common carotid arteries are patent. Again noted is approximately 40% stenosis at the ta keoff of the right ICA secondary to calcified atherosclerotic plaquing. There is also approximately 6 0% stenosis at the takeoff of the left ICA also secondary to calcified plaquing. No significant marcano e is noted. The remaining aspects of the right and left ICAs are patent. The remaining great vessels were patent at the level of the aortic arch. No sign of dissection or aneurysm. There was no evidence of neck mass or significant lymphadenopathy. Visualized upper lung zones are cl ear. No mediastinal lymphadenopathy. The airway is patent. CT/CT angio headneck* [id number] IMPRESSION: 1. Bilateral proximal ICA stenoses. About 40% on the right and approximately 60 % on the left. This is stable since prior study 06/20/2018. 2. The bilateral common carotid arteries are patent. CTA of the head with contrast. Compared to most recent exam 06/07/2015. The anterior, middle and posterior cerebral arteries are bilaterally patent. Th e intracranial internal carotid arteries show moderate plaquing in the cavernou s segments but no significant stenoses is demonstrated. Both intracranial ICAs are patent. The visualized bilateral vertebral arteries and basilar artery are patent. No evidence of aneurysm or dissection. No space-occupying mass or acute bleed noted. The ventricles and basal cisterns are normal in size. No extra-axial fluid collections. The skull is unremarkabl e. IMPRESSION: 1. The intracranial internal carotid artery circulation is patent. No critical stenosis, aneurysm or dissection noted. 2. Moderate amount of calcified atherosclerotic plaquing noted in the intracran ial internal carotid arteries particularly in the cavernous segments but no cri tical stenosis was noted.
[2021-06-02 08:28] LABS: Blood Urea Nitrogen 9 mg/dL (8-23)
[2021-06-02] MEDS: iodixanol 320 mg/mL 100mL Btl IV (09:02)
== END 2021-06-02 07:46 | disposition home or self-care (01) ==
PROVIDERS: PCP Registered Nurse; Visit Provider Internal Medicine Cardiovascular Disease
DX: Z01.812 Encounter for preprocedural laboratory examination (principal); I65.23 Occlusion and stenosis of bilateral carotid arteries
CPT/HCPCS: 70496; 70498; 82565; 84520; Q9967

== ENCOUNTER 2021-06-03 08:18 | Outpatient (CLI) | payer MEDICARE, OTHER, SELFPAY ==
--- NOTE | 2021-06-03 08:32 | CT_ITS ---
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 Comparison 10/23/2019. CT scan of the chest with contrast. No suspicious pulmonary mass or nodule noted. No mediastinal or h ilar lymphadenopathy. Emphysematous changes and chronic pulmonary changes noted. The airway is patent . The thoracic aorta is normal in caliber. Coronary artery calcifications noted. A permanent cardiac pacer is in place over the left chest. No pleural effusions. The lungs are fully expanded. No pericar dial effusion. Normal thyroid tissue. No destructive bone lesions are chest wall defects. CT/CT chest abd pel w con* IMPRESSION: 1. No pulmonary mass or lymphadenopathy in the chest. 2. Emphysematous changes as well as chronic pulmonary changes. Overall, stable exam since the last study. CT scan of the abdomen and pelvis with IV contrast. Compared to prior study . Again noted are hemangiomas in the right and left lobes of the liver which are stable in appearance. The liver is otherwise unremarkable. 7.7 mm calcified sto ronn in the gallbladder. No sign of acute cholecystitis. The spleen, stomach and pancreas appear normal. Small hiatal hernia. The abdominal aorta is normal in caliber. The portal vein and IVC are patent. Unremarkable adrenal glands. Right -sided parapelvic renal cyst. This measures approximately 2.2 cm at greatest di ameter. The kidneys are otherwise unremarkable. Small bowel loops are normal in caliber. No free air. No lymphadenopathy. Normal appendix visualized. No signi ficant large bowel abnormality demonstrated. Abnormal appearing endometrium wit h small amount of the fluid in the endometrial cavity. There are also likely ut erine fibroids present. Small cystocele. No pelvic lymphadenopathy. No obvious destructive bone lesions are seen. IMPRESSION: 1. No abdominal mass, lymphadenopathy or ascites. 2. Ill-defined mass with low-attenuation of the endometrium and abnormal endome trial fluid. Endometrial malignancy is not excluded and biopsy would be recomme nded for further workup. There are also probable uterine fibroids present. 3. Cholelithiasis, hepatic hemangiomas and right renal cyst.
--- NOTE | 2021-06-03 08:32 | CT_ITS ---
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 Compared to prior study 10/23/2019. The neck is evaluated in the axial plane with sagittal and coronal reformatted images. Intravenous co ntrast was administered. No sign of neck mass or significant cervical lymphadenopathy. The airway is patent. No lesions in the region of the tongue base. The submandibular glands and parotid glands are unremarkable. There appea rs to be moderate stenoses of the bilateral proximal ICAs secondary to atherosclerotic plaque formati on. Atrophic thyroid tissue. No superior mediastinal lymphadenopathy is seen. No airway masses were n oted. 3 mm noncalcified nodule in the lateral aspect of the left upper lobe unchanged. Emphysematous changes noted in the upper lung zones.. Limited CT images of the brain demonstrate no mass or acute b leed. Moderate degenerative change of the cervical spine. Mild degenerative anterolisthesis of C4 on C5. No sign of bone destruction. CT/CT neck w con* [id number] IMPRESSION: 1. No indication of neck mass or significant cervical lymphadenopathy. Stable e xam. 2. Suspect moderate stenoses of the bilateral proximal ICAs more advanced on th e left than the right. This was described on prior study. 3. 3 mm indeterminate noncalcified nodule in the lateral aspect of the left upp er lobe unchanged. Emphysematous changes noted.
[2021-06-03] MEDS: iohexol 300 mg/mL 50 mL Btl PO (08:34)
[2021-06-03] MEDS: iodixanol 320 mg/mL 100mL Btl IV ×2 (10:04→10:08)
== END 2021-06-03 08:19 | disposition home or self-care (01) ==
PROVIDERS: PCP Registered Nurse; Visit Provider Radiology Radiation Oncology
DX: C33 Malignant neoplasm of trachea (principal); R91.1 Solitary pulmonary nodule; K80.20 Calculus of gallbladder without cholecystitis without obstruction; D18.09 Hemangioma of other sites; N28.1 Cyst of kidney, acquired
CPT/HCPCS: 70491; 71260; 74177; Q9967

== ENCOUNTER → 2021-07-11 10:39 | Outpatient (BNVA) | payer MEDICARE, OTHER, SELFPAY | PROVIDERS: PCP Registered Nurse; Visit Provider Obstetrics & Gynecology | DX: D25.1 Intramural leiomyoma of uterus (principal); R93.89 Abnormal findings on diagnostic imaging of other specified body structures | CPT/HCPCS: 76830 ==

== ENCOUNTER → 2021-07-18 11:13 | Outpatient (BNVA) | payer MEDICARE, OTHER, SELFPAY | PROVIDERS: PCP Registered Nurse; Visit Provider Obstetrics & Gynecology | DX: R39.9 Unspecified symptoms and signs involving the genitourinary system (principal); N85.8 Other specified noninflammatory disorders of uterus | CPT/HCPCS: 81000; 87086; 87635 ==

== ENCOUNTER 2021-07-22 11:49 | Day surgery (SDC) | payer MEDICARE, OTHER, SELFPAY ==
[2021-07-18 12:23] VITALS: BMI 24.7
--- NOTE | 2021-07-18 12:55 | ECG_ITS ---
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 Measurements Intervals [place] Rate: 73 P: 117 GA: 271 QRS: -68 QRSD: 150 T: 79 QT: 438 QTc: 486 Interpretive Statements ELECTRONIC ATRIAL PACEMAKER LEFT AXIS DEVIATION [QRS AXIS < -30] LEFT BUNDLE BRANCH BLOCK [120+ ms QRS DURATION, 80+ ms Q/S IN V1/V2, 85+ ms R IN I/aVL/V5/V6] Compared to ECG 12/25/2020 21:35:39 Left bundle-branch block now present Intraventricular conduction delay no longer present Electronically Signed On 07-18-2021 20:37:58 CDT by Danny Ro M.D. [id number]
--- NOTE | 2021-07-18 13:09 | ANES.PREANE2 ---
Pre-Anesthetic Assessment Pre-Anesthetic Assessment: Height/Weight: Height 1.6 m Weight 63.503 kg Preop Diagnosis: abnormal CT Proposed Procedure: Operation Date: 07/22/21 13:35 Proposed Procedures p Hysteroscopy [id number] N85.8(Not Applicable) - Simi Pedroza MD s Dilation And Curettage (D&C)(Not Applicable) - Simi Pedroza MD Was Beta Charline taken within 24 hours: N/A Was Clonidine taken within 24 hours: N/A Social: Social History: No alcohol and No tobacco Exam: Pre-Anes Outpt Exam: alert, oriented x 3, clear to auscultation bilaterally and regular rate & rhythm Airway: Submandibular: WNL Cervical ROM: WNL MP: 2 Dentition: False and Partials History/ROS: No significant history except as noted Pulmonary: Comments: quit smoking years ago CV/HEM: CV/HEM: HTN and MN (stent x1) Comments: pacemaker placed 2012 (sycopal episodes) : : None reported Hepatic: Hepatic: None reported GI: GI: None reported Metabolic: Metabolic: Hyperlipidemia Musc/skel: Musc/skel: OA/DJD Neuropsych: Neuropsych: Anxiety Anesthetic Plan: ASA status: 2 Anesthesia: Anesthesia Evaluation and Choice Risk of > 500 ml blood loss (7ml/kg in children): No PFSH Anesthesia PFSH: Medical History ASHD (arteriosclerotic heart disease) Bilateral carotid artery stenosis CAD (coronary artery disease) Chest pain Atypical chest pain likely MSK Diabetes Dyslipidemia Hypertension 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 Surgical History H/O cataract extraction History of PTCA Family History Mother CAD (coronary artery disease) Father CAD (coronary artery disease) Brother CAD (coronary artery disease) Sister CAD (coronary artery disease) Chronic kidney disease (CKD) Diabetes Hyperlipidemia Hypertension Stroke Denies family history of Clotting disorder Dementia Suicide Anesthesia complication Bleeding disorder Lung disease Cancer Social History Smoking and tobacco status: former smoker Alcohol intake: never Data Anesthesia Cardiac Studies: No Data to Display
[2021-07-18 13:34] LABS: Basophils % 0.5 %; Eosinophils # 0.1 10^3/uL (0.0-0.8); Eosinophils % 1.9 %; Hematocrit 40.6 % (37.0-47.0); Hemoglobin 13.7 g/dL (11.5-15.3); Lymphocytes % 17.8 %; Mean Corpuscular HGB Conc 33.7 g/dL (30.0-36.0); Mean Corpuscular Hemoglobin 31.1 pg (28.0-34.0); Mean Corpuscular Volume 92.1 fl (81-99); Mean Platelet Volume 8.9 fL (7.4-10.4); Monocytes # 0.3 10^3/uL (0.2-0.9); Monocytes % 5.8 %; Neutrophils # 4.32 10^3/uL (1.8-7.7); Neutrophils % 73.8 %; Nucleated Red Blood Cells % 0 %; Platelet Count 202 10^3/cmm (130-400); Red Blood Count 4.41 10^6/uL (4.1-5.3); White Blood Count 5.9 10^3/uL (4.0-10.0)
[2021-07-18 13:44] LABS: Alanine Aminotransferase 28 U/L (0-33); Albumin Level 4.5 g/dL (3.5-5.2); Alkaline Phosphatase 103 IU/L (35-105); Anion Gap 12.6 (5-19); Aspartate Amino Transferase 35 U/L (0-32); Blood Urea Nitrogen 12 mg/dL (8-23); Calcium 9.2 mg/dL (8.5-10.5); Carbon Dioxide 28 mmol/L (22-29); Chloride 99 mmol/L (98-107); Globulin 2.5 g/dL (1.3-4.6); Glucose 99 mg/dL (65-115); Osmolality Calculated 282 mOsm/kg (285-295); Potassium 3.6 mmol/L (3.5-5.1); Sodium 136 mmol/L (136-145); Total Bilirubin 0.7 mg/dL (0.15-1.2)
[2021-07-22] VITALS (9 sets, daily range): BP systolic 152–178; BP diastolic 69–99; PULSE 70–74; RESP 16–18; TEMP 36.1–36.6; O2SAT 92–100
[2021-07-22] MEDS: sodium chloride 0.9% 1,000 ML 30 ML IV (12:19)
[2021-07-22] MEDS: ketorolac 30 mg/mL INJ IVP (12:20)
--- NOTE | 2021-07-22 12:55 | P.ANESUD_ITS ---
Pre-Anesthetic Update Pre-Anesthetic Assessment: Date of Surgery/Procedure: 07/22/21 Preop Janna gnosis: thickened endometrium, PMB Proposed Procedure: Operation Date: 07/22/21 13:35 Proposed Procedures p Hysteroscopy [id number] N85.8(Not Applicable) - Simi Pedroza MD s Dilation And Curettage (D&C)(Not Applicable) - Simi Pedroza MD Any changes to Pre-Anesthetic Assessment?: No Last Intake: Intake Last Liquid Date 07/21/21 Last Liquid Time 22:30 Last Solid Date 07/21/21 Last Solid Time 22:30 Vitals: Temperature 97.7 F 07/22/21 12:03 Temperature Source Temporal Artery S can 07/22/21 12:03 Pulse Rate 74 07/22/21 12:03 Respiratory Rate 18 07/22/21 12:03 Blood Pressure 155/71 07/22/21 12:03 Blood Pressure Sophie n 99 07/22/21 12:03 Pulse Oximetry 96 07/22/21 12:03 Oxygen Delivery Me thod 07/22/21 12:07 Exam: Pre-Anes Outpt Exam: alert, oriented x 3, clear to auscultation bilaterally and regular rate & rhythm Cardiac Studies: No Data to Display
--- NOTE | 2021-07-22 14:19 | W.PM.OPSUD ---
Surgery/Procedure H&P Update DATE OF PROCEDURE: July 22, 2021 DATE H&P PERFORMED: 07/18/21 H&P UPDATE INFORMATION: I have reviewed H&P completed within last 30 days, I have examined patient prior to procedure and No changes to prior documentation PREOP DIAGNOSIS: thickened endometrium, PMB PLANNED PROCEDURE: Operation Date: 07/22/21 13:35 Proposed Procedures p Hysteroscopy [id number] N85.8(Not Applicable) - Simi Pedroza MD s Dilation And Curettage (D&C)(Not Applicable) - Simi Pedroza MD
--- NOTE | 2021-07-22 15:34 | PM.OP ---
Operative Report Date of procedure: July 22, 2021 Pre-op Diagnosis: thickened endometrium, PMB Post-op diagnosis: same Post-op Findings: Anterior Fibroid Procedure Done: Hysteroscopy, dilation and curettage with myosure Specimens removed/disposition: endometrial curettings to pathology Anesthesia: General Estimated blood loss (mL): 100 IV fluids (mL): 600 Urine output (mL): 50 Complications: Some extra bleeding once hysteroscope was removed. It resolved within minutes. Findings: 9 week sized uterus. Hysteroscopy deficit 980 ml Condition: stable Disposition: PACU Procedure: The patient was taken to the operating room where monitored anesthesia was administered and to be adequate. She was prepped and draped in the normal sterile fashion in the dorsal lithotomy position in [facility]. A weighted speculum was placed into the vagina and the anterior lip of the cervix grasped with a single-tooth tenaculum. The uterus was sounded to 9 cm. The cervix was dilated to 16 Tamazight. The hysteroscope was advanced into the endometrial cavity. There was some anterior tissue visualized. The MyoSure device was activated and the tissue was removed. The tissue was consistent with a fibroid. When I removed the MyoSure there was some bleeding. Initially it seemed like it was blood mixed with the hysteroscopic fluid but it went on for too long and it was clotting so it was pure blood. The bleeding stopped spontaneously and she had no further bleeding. All instruments were removed. The patient tolerated the procedure well. Sponge lap and needle counts were correct x3. She was taken to the recovery room in stable condition. The patient's vital signs remained stable throughout the procedure, however, she will stay in postop for 2 hours and have her vital signs monitored since this was an abnormal amount of bleeding once I remove the MyoSure.
--- NOTE | 2021-07-22 15:41 | PM.DCS ---
Discharge Providers Date of Discharge: July 22, 2021 Attending Provider at Discharge: Simi Pedroza MD Primary Care Provider: Kassie Toscano Diagnoses at Discharge Discharge Diagnosis (1) Postoperative state: Status: Acute Reason for Visit Reason for Visit: hysteroscopy Hospital Course Hospital Course The patient was admitted for surgery. she did well postoperatively and was ready for discharge 2 hours post procedure. Discharge Data Data Completed and Pending: Pending at discharge Category Date Time Status ES surgery / GI i mages Routine Exams 07/22/21 14:12 Taken Vitals: Last Vital Signs Temp 97.7 F 07/22/21 12:03 Pulse 74 07/22/21 12:03 Resp 18 07/22/21 12:03 BP 155/71 07/22/21 12:03 Pulse Ox 96 07/22/21 12:03 Discharge Plan Discharge Patient Disposition: Home Condition: Stable Prescriptions: Continued clopidogrel [Plavix] 75 mg tablet 75 mg PO DAILY@2099 RF: 0 nitroglycerin [Nitrostat] 0.4 mg tablet, sublingual 0.4 mg SUBLINGUAL Q5M PRN (Reason: chest pains) RF: 0 multivitamin Tablet 1 tab PO DAILY@1600 RF: 0 folic acid 400 mcg tablet 0.4 mg PO DAILY@1600 RF: 0 atorvastatin 40 mg tablet 40 mg PO DAILY@2099 RF: 0 aspirin [Adult Low Dose Aspirin] 81 mg tablet,delayed release (DR/EC) 81 mg PO DAILY@2099 RF: 0 alprazolam 0.5 mg tablet 1 mg PO BID PRN (Reason: Anxiety) RF: 0 metoprolol tartrate 100 mg tablet See Rx Instructions .ROUTE .COMPLEX Qty: 180 RF: 3 amlodipine 2.5 mg tablet See Rx Instructions .ROUTE .COMPLEX Qty: 90 RF: 3 isosorbide mononitrate 120 mg tablet extended release 24 hr See Rx Instructions .ROUTE .COMPLEX Qty: 90 RF: 3 calcium 600 mg Capsule 600 mg PO DAILY@1600 RF: 0 magnesium 500 mg Tablet 500 mg PO DAILY@1600 RF: 0 potassium 99 mg Tablet 99 mg PO DAILY@1600 RF: 0 ascorbic acid (vitamin C) [Vitamin C] 500 mg Tablet 500 mg PO DAILY@1600 RF: 0 hydrochlorothiazide 25 mg Tablet 25 mg PO DAILY@08 RF: 0 zinc 50 mg Capsule 50 mg PO DAILY@1600 RF: 0 cholecalciferol (vitamin D3) [Vitamin D3] 125 mcg (5,000 unit) Tablet 125 mcg PO DAILY@1600 RF: 0 Discharge Orders: Discharge Order (Routine); Ordered 07/22/21 Ordered By: Simi Pedroza Patient Instructions: OB D&C - [facility], OB Hysteroscopy - [facility], Post Anesthesia Care Discharge Attestations Time Spent in Discharge Care*: less than 30 min Status at Discharge: Cognitive status at discharge: cognitively intact, Behavioral status at discharge: cooperative, Quality Metrics Clinical Quality Measures During this hospital stay, did patient experience: None Coding Level of Care Code Acute [facility] FW DC note Diagnoses Postoperative state Z98.890
--- NOTE | 2021-07-22 16:17 | PC.NURSE ---
Vicenta Pad had 2 fingertip size red spots on it.
--- NOTE | 2021-07-22 16:41 | PC.NURSE ---
No change in jennifer pad
--- NOTE | 2021-07-23 14:14 | ANE.PACU2 ---
Inpatient post-anesthesia follow up: Airway intact: Yes Vital signs: Temperature 97.3 F Pulse Rate 70 Respiratory Rate 16 Blood Pressure 178/76 Pulse Oximetry 92 Oxygen Delivery Me thod Room Air Oxygen Flow Rate 8 Fraction of Inspir ed Oxygen Hydration adequate: Yes Nausea and vomiting: No Pain level: 2 Mental status: Baseline
== END 2021-07-22 18:05 | disposition home or self-care (01) ==
PROVIDERS: PCP Registered Nurse; Visit Provider Obstetrics & Gynecology
PROC: 0UJD8ZZ Inspection of Uterus and Cervix, Via Natural or Artificial Opening Endoscopic (ICD-10-PCS; CPT 58555; principal; 2021-07-22 13:25)
PROC: (CPT 58120; 2021-07-22 13:25)
DX: D25.9 Leiomyoma of uterus, unspecified (principal); Z87.891 Personal history of nicotine dependence; I10 Essential (primary) hypertension; I25.2 Old myocardial infarction; E78.5 Hyperlipidemia, unspecified; F41.9 Anxiety disorder, unspecified; I25.10 Atherosclerotic heart disease of native coronary artery without angina pectoris; E11.9 Type 2 diabetes mellitus without complications; Z95.0 Presence of cardiac pacemaker; Z82.49 Family history of ischemic heart disease and other diseases of the circulatory system
CPT/HCPCS: 58558; 80053; 85025; 87086; 88305; 93005; J1885; J2250; J2405; J2704; J3010; J7030

== ENCOUNTER 2021-10-28 11:15 | Outpatient (CLI) | payer MEDICARE, OTHER, SELFPAY ==
--- NOTE | 2021-10-28 11:26 | CT_ITS ---
WS: [email or web address] Exam: CT thoracic spin wo con* [id number] Date/Time of Exam: 10/28/2021 11:26 AM Reason For Exam: THORACIC DEGENERATIVE DISC DISEASE DLP: 1087.[address] scans at [facility] use at least one of these dose optimization techniques: automated e xposure control; mA and/or kV adjustment per patient size (includes targeted exams where dose is matc hed to clinical indication); or iterative reconstruction. The thoracic spine is evaluated in the axial plane with sagittal and coronal reformatted images. No sign of fracture or bone destruction. Degenerative disc changes noted at numerous levels and mild spondylosis. Osteopenia. The bony spinal canal is patent. No obvious significant foraminal stenosis i s seen. Small posterior bone spur projects from the inferior plate of the C7 but does not appear to c ause significant canal stenosis. Paraspinal soft tissues are unremarkable. Emphysematous changes and fibrous scarring identified within the visualized lung parenchyma. CT/CT thoracic spin wo con* [id number] IMPRESSION: 1. No evidence of fracture or osseous destruction. 2. Degenerative disc changes and spondylosis. 3. No sign of herniated disc or spinal canal stenosis.
== END 2021-10-28 11:16 | disposition home or self-care (01) ==
PROVIDERS: PCP Registered Nurse; Visit Provider Registered Nurse
DX: M51.34 Other intervertebral disc degeneration, thoracic region (principal); M47.814 Spondylosis without myelopathy or radiculopathy, thoracic region
CPT/HCPCS: 72128

== ENCOUNTER 2022-02-02 11:11 | Outpatient (CLI) | payer MEDICARE, OTHER, SELFPAY ==
--- NOTE | 2022-02-02 11:18 | MM_ITS ---
WS: [email or web address] BILATERAL 3D TOMOSYNTHESIS DIGITAL SCREENING MAMMOGRAPHY WITH CAD CLINICAL INFORMATION: SCREENING HISTORY: Screening mammogram. No current complaints. COMPARISON: November 26, 2020 TECHNIQUE: Bilateral CC and MLO views. FINDINGS: Scattered fibroglandular densities bilaterally. Vascular calcification. A few incidental punctate brian cifications. Stable ovoid nodule 7 mm anterior RIGHT breast. No suspicious focal mass, asymmetry, brian cifications, or architectural distortion. No evidence of malignancy. MM/[place] [id number] IMPRESSION: BI-RADS: 2-Benign FOLLOW UP: 1 Year Follow-up Recommend return to annual screening mammography.
== END 2022-02-02 11:12 | disposition home or self-care (01) ==
LOC: RADSHAW 11:15
PROVIDERS: PCP Registered Nurse; Visit Provider Registered Nurse
DX: Z12.31 Encounter for screening mammogram for malignant neoplasm of breast (principal)
CPT/HCPCS: 77063; 77067

== ENCOUNTER → 2022-02-05 13:52 | Outpatient (BNVA) | payer MEDICARE, OTHER, SELFPAY | PROVIDERS: PCP Registered Nurse; Visit Provider Internal Medicine Cardiovascular Disease | DX: E78.5 Hyperlipidemia, unspecified (principal); Z87.891 Personal history of nicotine dependence | CPT/HCPCS: 99214 ==

== ENCOUNTER → 2022-02-20 09:34 | Outpatient (BNVA) | payer MEDICARE, OTHER, SELFPAY | PROVIDERS: PCP Registered Nurse; Visit Provider Internal Medicine Cardiovascular Disease | DX: E78.5 Hyperlipidemia, unspecified (principal); Z95.0 Presence of cardiac pacemaker | CPT/HCPCS: 36415; 80061; 93280 ==

== ENCOUNTER → 2022-05-07 13:30 | Outpatient (BNVA) | payer MEDICARE, OTHER, SELFPAY | PROVIDERS: PCP Registered Nurse; Visit Provider Orthopaedic Surgery | DX: M48.02 Spinal stenosis, cervical region (principal); M48.04 Spinal stenosis, thoracic region | CPT/HCPCS: 72050; 72072; 99204 ==

== ENCOUNTER 2022-06-03 10:02 | Outpatient (CLI) | payer MEDICARE, OTHER, SELFPAY ==
--- NOTE | 2022-06-03 10:15 | USCV_ITS ---
Ariane Perry Age: 81 Gender: F : 1940 Exam Date: 06/03/2022 10:27 Ordering Phys: Macie Weems MD ([email or web address]) Technologist: BOOKER Exam Location: [facility] [place] Indication: CAROTID STENOSIS Risk Factors: Previous Vascular Surgery: Right Brachial BP: / Left Brachial BP: / Right Left Velocity (cm/s) Spectral Plaque Velocity (cm/s) Spectral Plaque Syst/Diast Broadening Syst/Diast Broadening 83.10/ 10.90 Prox CCA 88.80 / 18.20 55.20/ 14.80 Mid CCA 79.20 / 15.00 38.50/ 12.30 Distal CCA 63.30 / 12.10 64.60/ 16.40 Prox ICA 256.95/ 67.35 76.90/ 20.20 Mid ICA 265.90/ 58.10 77.90/ 18.20 Distal ICA 88.50 / 43.40 512.70 ECA 147.80 0.94 ICA/CCA 3.70 Antegrade Vertebral Antegrade 83.70/ 10.30 cm/s 47.00/ 9.40 cm/s Tri Subclavian Tri 116.3 174.4 0 0 FINDINGS Moderate plaques at the right bifurcation. Heavy dense irregular plaque at the proximal segment of the external carotid artery on the right side. Heavy heterogeneous plaques at the left bifurcation , proximal and mid internal carotid artery. Antegrade flow in the vertebral arteries bilaterally. Intimal thickening and minimal plaques in the common carotid arteries bilaterally CONCLUSIONS 1. Moderate plaques of the right bifurcation and proximal internal carotid artery with Doppler features, suggesting less than 50% stenosis. 2. Heavy heterogeneous plaques at the right proximal external carotid artery with markedly elevated velocity, suggestive of hemodynamically significant stenosis. 3. Heavy heterogeneous plaques at the left bifurcation and proximal internal carotid artery with velocity elevation, suggesting greater than 70% stenosis 4. Intimal thickening and minimal plaques in the common carotid arteries bilaterally Compared to the study from a 05/22/2021, there is some worsening of stenosis on the left side Dr Macie Weems MD [facility] (Electronically Signed) Final Date: 05 June 2022 14:38 S
== END 2022-06-03 10:03 | disposition home or self-care (01) ==
PROVIDERS: PCP Registered Nurse; Visit Provider Internal Medicine Cardiovascular Disease
DX: I25.118 Atherosclerotic heart disease of native coronary artery with other forms of angina pectoris (principal); I65.23 Occlusion and stenosis of bilateral carotid arteries; R07.89 Other chest pain
CPT/HCPCS: 93880

== ENCOUNTER → 2022-06-26 09:26 | Outpatient (BNVA) | payer MEDICARE, OTHER, SELFPAY | PROVIDERS: PCP Registered Nurse; Visit Provider Internal Medicine Cardiovascular Disease | DX: Z45.010 Encounter for checking and testing of cardiac pacemaker pulse generator [battery] (principal) | CPT/HCPCS: 93280 ==

== ENCOUNTER 2022-07-03 07:45 | Outpatient (CLI) | payer MEDICARE, OTHER, SELFPAY ==
--- NOTE | 2022-07-03 07:56 | IR_ITS ---
WS: [email or web address] CERVICAL AND THORACIC MYELOGRAMs HISTORY: SPINAL STENOSIS, CERVICAL THORACIC REGION/PAIN COMPARISON: Thoracic spine CT 10/28/2021. FLUOROSCOPY TIME: 1min [id number] # of spot films: 6 Procedure, risks and complications were explained to the patient. Risks including bleeding, infection , headaches, allergic reaction and seizures. Consent has been obtained. With the patient in prone position the skin over the lumbar region is cleansed with ChloraPrep and an esthetized with lidocaine. 22-gauge spinal needle is inserted into the thecal sac at the appropriate level determined by fluoroscopy. Omnipaque 240; 13 ml is injected slowly under fluoroscopy with no co mplications. Needle bevel is perpendicular to the longitudinal fibers of the dura. Stylet is reinsert ed prior to removal of the needle. Patient tolerated the procedure well. Patient will proceed to CT f or further evaluation. C4 anterolisthesis by 2.9 mm. C5 retrolisthesis by 2.0 mm. Moderate degenerative disc disease at C5-6 and C6-7. With flexion and extension the anterolisthesis of C4 does not significantly change. Facet joints are narrowed bilaterally throughout the thoracic spine. Intermittent visualization of contrast in the thoracic thecal sac. Mild osteopenia and increased kyph osis. No destructive process or fracture. Atherosclerotic changes within the aorta. Dual lumen LEFT cardiac pacer. IR/IR myelogram sp cervic/thorac IMPRESSION: 1. Uncomplicated cervical and thoracic myelograms. 2. C4 anterolisthesis by 2.9 mm and C5 retrolisthesis by 2.0 mm. No significan t change during flexion or extension. 3. CT cervical spine thoracic myelogram reports to follow.
--- NOTE | 2022-07-03 09:30 | CT_ITS ---
WS: [email or web address] CT THORACIC MYELOGRAM HISTORY: pain TECHNIQUE: Contiguous 2.5 mm axial images are reviewed to thoracic spine. Images are reformatted in s agittal and coronal planes. All CT scans at [facility] use at least one of these dose optimiz ation techniques: automated exposure control; mA and/or kV adjustment per patient size (includes targ eted exams where dose is matched to clinical indication); or iterative reconstruction. DLP: 1441.00 mGy.cm COMPARISON: No similar studies. Prior CT thoracic spine 10/28/2021. Good contrast opacification of the thecal sac. Thoracic cord is normal size throughout. Tapers normal ly towards T12 and L1. The conus is not included in its entirety. Disc spaces are diffusely narrowed and endplate osteophytes throughout the thoracic spine. No fractures. No central stenosis or large disc protrusions throughout the thoracic spine. CSF surrounds the cord a t all levels. Small calcified disc on the RIGHT at T11-12. Facet joints are mildly hypertrophic throu ghout. No foraminal stenosis. Facet joints are normally aligned. Mediastinal bronchial thickening and areas of atelectasis in the medial superior segments of the lowe r lobes. Similar to the prior study from 10/28/2021. CT/CT thoracic spin wo con* [id number] IMPRESSION: 1. No significant central or foraminal stenosis throughout the thoracic spine. 2. No significant disc protrusions. 3. Mild spondylitic changes but no fracture.
[2022-07-03] MEDS: iohexol 240 mg/mL 50 mL Btl INTRATHECA (09:47)
== END 2022-07-03 07:46 | disposition home or self-care (01) ==
LOC: RAD 07:46
PROVIDERS: PCP Registered Nurse; Visit Provider Orthopaedic Surgery
DX: M48.02 Spinal stenosis, cervical region (principal); M54.6 Pain in thoracic spine; M48.04 Spinal stenosis, thoracic region; M50.21 Other cervical disc displacement, high cervical region
CPT/HCPCS: 62305; 72040; 72125; 72128

== ENCOUNTER 2022-07-03 07:45 | Outpatient (CLI) | payer MEDICARE, OTHER, SELFPAY ==
--- NOTE | 2022-07-03 09:00 | CT_ITS ---
WS: [email or web address] CT CERVICAL MYELOGRAM HISTORY: pain Technique: All CT scans at [facility] use at least one of these dose optimization techniques: automated exposure control; mA and/or kV adjustment per patient size (includes targeted exams where dose is matched to clinical indication); or iterative reconstruction. DLP: 1441.00 mGy.cm COMPARISON: No similar studies. Good opacification of thecal sac with contrast. C4 anterolisthesis by 3.5 mm. C5 retrolisthesis by 2.8 mm. No fractures. Moderate disc space narrowin g and desiccation at C5-6 and C6-7. Mild deformity of the cervical cord at C4-5 and C5-6 due to disc and osteophyte disease. C1-C2: Normal. C2-C3: Mild disc bulging with very small LEFT paracentral disc protrusion. No stenosis. C3-C4: Central disc protrusion. Very mild foraminal narrowing. Bilateral facet joint arthritis, great est on the LEFT. C4-C5: Osteophytic ridging with mild bilateral facet joint arthritis. Mild central and foraminal sten osis. C5-C6: Osteophyte encroachment upon the ventral thecal sac and mild disc bulging. Osteophytes contact and deform thecal sac. There is moderate central and mild foraminal stenosis. Moderate bilateral fac et joint arthritis. C6-C7: Osteophytic ridging and mild disc bulging. LEFT foraminal osteophyte contacts the LEFT lateral thecal sac. Moderate central and mild foraminal stenosis and mild facet arthritis. Mild scattered plaque in the carotid arteries. CT/CT cervical spin wo con* [id number] IMPRESSION: 1. C4 anterolisthesis by 3.5 mm and C5 retrolisthesis by 2.8 mm. 2. Moderate central and bilateral foraminal stenosis at C5-6 predominantly due to osteophytes contacting the ventral thecal sac and facet arthritis. 3. Moderate central and bilateral foraminal stenosis at C6-7. Predominantly du e to osteophyte disease and facet disease. 4. Small LEFT paracentral disc protrusion at C2-3. 5. Multilevel bilateral facet joint arthritis.
== END 2022-07-03 07:46 | disposition home or self-care (01) ==
LOC: RAD 07:46
PROVIDERS: PCP Registered Nurse; Visit Provider Orthopaedic Surgery
DX: M48.02 Spinal stenosis, cervical region (principal); M48.04 Spinal stenosis, thoracic region; M50.21 Other cervical disc displacement, high cervical region
CPT/HCPCS: 72125

== ENCOUNTER 2022-07-17 13:02 | Outpatient (CLI) | payer MEDICARE, OTHER, SELFPAY ==
--- NOTE | 2022-07-17 14:00 | CT_ITS ---
WS: [email or web address] CTA HEAD AND NECK TECHNIQUE: Contrast enhanced CTA of the head and neck with coronal and sagittal reformatted images an d maximum intensity projection (MIP) images. NASCET criteria utilized. CLINICAL INFORMATION: Carotid artery occlusion COMPARISON: CTA May 13, 2021 DLP: 517.[address] scans at [facility] use at least one of these dose optimization techniques: automated e xposure control; mA and/or kV adjustment per patient size (includes targeted exams where dose is matc hed to clinical indication); or iterative reconstruction. FINDINGS: No evidence of intracranial hemorrhage or mass effect. RIGHT: RIGHT common carotid artery is patent. RIGHT ICA stenosis measures 36%. Dense cavernous caroti d calcification extending into the ICA. Retropharyngeal course to the RIGHT cervical ICA. RIGHT ICA i s patent to the skull base. LEFT: LEFT common carotid artery is patent. Moderate calcified atheromatous plaque LEFT carotid bulb extending into the ICA. Mild stenosis LEFT proximal ICA origin with 72% stenosis approximately 1.5 cm distal to the bifurcation. LEFT ICA remains patent to the skull base. INTRACRANIAL CTA: Tiny RIGHT vertebral artery is patent to the basilar junction. Tiny LEFT vertebral artery is occluded at the origin and reconstitutes at the C3 level. Tiny but patent basilar artery. Anterior dominant c irculation. Persistent RIGHT MOTHER REPAIRER. Patent LEFT posterior communicating artery. Normal vascularit y to the MOTHER REPAIRER territory bilaterally. Moderate cavernous carotid calcification. Patent anterior communicating artery. Normal vascularity to the HARDIK and MCA territories bilaterally. No evidence of flow-limiting stenosis or aneurysm. Mastoid air cells are well aerated. Paranasal sinuses are well aerated. Moderate chronic emphysematou s changes in the lung apices. Normal posterior nasopharynx. Normal parapharyngeal fat. Straightening of the normal cervical lordosis. Moderate spondylitic changes. Disc osteophyte complexes worse at C5- C6 and C6-C7. CT/CT angio headneck* [id number] IMPRESSION: 1. RIGHT ICA stenosis measures 36%. Retropharyngeal course RIGHT ICA. 2. LEFT ICA stenosis measures 72% and appears slightly progressed compared to previous. 3. No flow-limiting intracranial stenosis. 4. Dominant anterior circulation. RIGHT dominant tiny vertebral artery. 5. No other acute findings.
[2022-07-17 14:38] LABS: Blood Urea Nitrogen 8 mg/dL (8-23)
[2022-07-17] MEDS: iohexol 350 mg/mL 100 mL Btl IV (14:53)
== END 2022-07-17 13:03 | disposition home or self-care (01) ==
LOC: RAD 13:04
PROVIDERS: PCP Registered Nurse; Visit Provider Internal Medicine Cardiovascular Disease
DX: Z01.812 Encounter for preprocedural laboratory examination (principal); I65.23 Occlusion and stenosis of bilateral carotid arteries
CPT/HCPCS: 70496; 70498; 82565; 84520

== ENCOUNTER → 2022-07-21 13:01 | Outpatient (BNVA) | payer MEDICARE, OTHER, SELFPAY | PROVIDERS: PCP Registered Nurse; Visit Provider Physician Assistant | DX: M43.12 Spondylolisthesis, cervical region (principal); M47.812 Spondylosis without myelopathy or radiculopathy, cervical region; M50.30 Other cervical disc degeneration, unspecified cervical region | CPT/HCPCS: 99213 ==

== ENCOUNTER → 2022-08-05 11:03 | Outpatient (BNVA) | payer MEDICARE, OTHER, SELFPAY | PROVIDERS: PCP Registered Nurse; Visit Provider Internal Medicine Cardiovascular Disease | DX: I25.118 Atherosclerotic heart disease of native coronary artery with other forms of angina pectoris (principal); Z95.0 Presence of cardiac pacemaker; I65.21 Occlusion and stenosis of right carotid artery; I10 Essential (primary) hypertension; E78.5 Hyperlipidemia, unspecified; Z87.891 Personal history of nicotine dependence | CPT/HCPCS: 99214 ==

== ENCOUNTER → 2022-08-11 10:14 | Outpatient (BNVA) | payer MEDICARE, OTHER, SELFPAY | PROVIDERS: PCP Registered Nurse; Visit Provider Anesthesiology Pain Medicine | DX: G89.29 Other chronic pain (principal); M50.30 Other cervical disc degeneration, unspecified cervical region; M47.812 Spondylosis without myelopathy or radiculopathy, cervical region; M43.12 Spondylolisthesis, cervical region; M54.6 Pain in thoracic spine; M79.601 Pain in right arm; M79.602 Pain in left arm; Z87.891 Personal history of nicotine dependence | CPT/HCPCS: 99204 ==

== ENCOUNTER → 2022-08-27 13:57 | Outpatient (BNVA) | payer MEDICARE, OTHER, SELFPAY | PROVIDERS: PCP Registered Nurse; Visit Provider Thoracic Surgery (Cardiothoracic Vascular Surgery) | DX: I65.23 Occlusion and stenosis of bilateral carotid arteries (principal); I10 Essential (primary) hypertension; Z87.891 Personal history of nicotine dependence | CPT/HCPCS: 99203 ==

== ENCOUNTER → 2022-08-31 13:56 | Outpatient (BNVA) | payer MEDICARE, OTHER, SELFPAY | PROVIDERS: PCP Registered Nurse; Visit Provider Anesthesiology Pain Medicine | DX: M47.812 Spondylosis without myelopathy or radiculopathy, cervical region (principal); G89.29 Other chronic pain; M54.9 Dorsalgia, unspecified; Z79.891 Long term (current) use of opiate analgesic; Z87.891 Personal history of nicotine dependence | CPT/HCPCS: 64490; 64491; 64492 ==

== ENCOUNTER → 2022-09-14 09:32 | Outpatient (BNVA) | payer MEDICARE, OTHER, SELFPAY | PROVIDERS: PCP Registered Nurse; Visit Provider Anesthesiology Pain Medicine | DX: G89.29 Other chronic pain (principal); M50.30 Other cervical disc degeneration, unspecified cervical region; M47.812 Spondylosis without myelopathy or radiculopathy, cervical region; M43.12 Spondylolisthesis, cervical region; M54.6 Pain in thoracic spine; M79.601 Pain in right arm; M79.602 Pain in left arm; Z87.891 Personal history of nicotine dependence; M79.673 Pain in unspecified foot | CPT/HCPCS: 99214 ==

== ENCOUNTER → 2022-09-25 11:14 | Outpatient (BNVA) | payer MEDICARE, OTHER, SELFPAY | PROVIDERS: PCP Registered Nurse; Visit Provider Internal Medicine Cardiovascular Disease | DX: Z45.010 Encounter for checking and testing of cardiac pacemaker pulse generator [battery] (principal) | CPT/HCPCS: 93280 ==

== ENCOUNTER → 2022-09-29 10:08 | Outpatient (BNVA) | payer MEDICARE, OTHER, SELFPAY | PROVIDERS: PCP Registered Nurse; Visit Provider Internal Medicine Cardiovascular Disease | DX: Z95.0 Presence of cardiac pacemaker (principal); I25.118 Atherosclerotic heart disease of native coronary artery with other forms of angina pectoris; E78.5 Hyperlipidemia, unspecified; I65.21 Occlusion and stenosis of right carotid artery; I10 Essential (primary) hypertension; Z87.891 Personal history of nicotine dependence | CPT/HCPCS: 99214 ==

== ENCOUNTER 2022-10-05 08:33 | Outpatient (CLI) | payer MEDICARE, OTHER, SELFPAY ==
[2022-10-05 09:12] LABS: Basophils % 0.5 %; Eosinophils # 0.1 10^3/uL (0.0-0.8); Eosinophils % 1.4 %; Hematocrit 35.7 % (37.0-47.0); Hemoglobin 11.9 g/dL (11.5-15.3); Lymphocytes # 0.8 10^3/uL (0.8-4.8); Lymphocytes % 12.8 %; Mean Corpuscular HGB Conc 33.3 g/dL (30.0-36.0); Mean Platelet Volume 8.7 fL (7.4-10.4); Monocytes # 0.4 10^3/uL (0.2-0.9); Monocytes % 6.7 %; Neutrophils # 5.12 10^3/uL (1.8-7.7); Neutrophils % 78.3 %; Nucleated Red Blood Cells % 0 %; Platelet Count 203 10^3/cmm (130-400); Red Blood Count 3.84 10^6/uL (4.1-5.3); Red Cell Distribution Width 13.8 % (12.1-15.1); White Blood Count 6.5 10^3/uL (4.0-10.0)
[2022-10-05 09:28] LABS: Prothrombin Time (Patient) 13.5 Seconds (12.0-15.1)
[2022-10-05 09:34] LABS: Anion Gap 14.9 (5-19); Blood Urea Nitrogen 11 mg/dL (8-23); Calcium 9.4 mg/dL (8.5-10.5); Carbon Dioxide 26 mmol/L (22-29); Chloride 98 mmol/L (98-107); Glucose 123 mg/dL (65-115); Osmolality Calculated 283 mOsm/kg (285-295); Sodium 136 mmol/L (136-145)
[2022-10-05 14:31] LABS: Potassium 2.9 mmol/L (3.5-5.1)
== END 2022-10-05 08:34 | disposition home or self-care (01) ==
LOC: LAB 08:38
PROVIDERS: PCP Registered Nurse; Visit Provider Internal Medicine Cardiovascular Disease
DX: R58 Hemorrhage, not elsewhere classified (principal); Z95.0 Presence of cardiac pacemaker; I25.118 Atherosclerotic heart disease of native coronary artery with other forms of angina pectoris; R07.89 Other chest pain
CPT/HCPCS: 80048; 85025; 85610; 86850; 86900

== ENCOUNTER 2022-10-06 07:14 | Emergency (ER) | payer MEDICARE, OTHER, SELFPAY ==
[2022-10-06 07:18] VITALS: BP 179/81; PULSE 90; RESP 16; TEMP 525.6; TEMP 978.1; O2SAT 97; BMI 23.7
[2022-10-06 07:23] VITALS: BP 152/73
--- NOTE | 2022-10-06 07:47 | W.ED.BACK ---
HPI - Back Pain/Injury General: Chief Complaint: Back Pain/Injury Stated Complaint: back pain/spasms Time Seen by Provider: 10/06/22 07:23 History of Present Illness: Patient is an 82-year-old female comes in the ED with acute on chronic back pain. Patient has been having this mid back pain for over a year now. She has seen Dr. Ann and then was referred to the pain management clinic and saw Dr. Carias. She is currently on tramadol but states that not helping. Flareup of worsening pain started approximately 1 week ago. Pain is located in the middle of the back and radiates out to the sides and back laterally. Denies any pain radiating down the legs. Any movement causes worsening pain. Denies any injury or trauma to cause worsening pain. Associated symptoms: Deny abdominal pain, chills, dysuria, fatigue, fever(s), hematuria, nausea or vomiting Review of Systems Const: Denies: fever(s), chills or fatigue Eyes: Denies: change in vision or eye discomfort ENMT: Denies: throat pain, odynophagia, nasal discharge or nasal congestion Card: Denies: chest pain, palpitations, edema, swelling of feet/ankles, dyspnea on exertion or orthopnea Resp: Denies: dyspnea, productive cough or non-productive cough GI: Denies: abdominal pain, nausea, vomiting, diarrhea, constipation or hematochezia : Denies: flank pain, dysuria or hematuria Musc: Reports: back pain; Denies: neck pain or extremity swelling Skin/Breast: Denies: rash or new lesions Neuro: Denies: headache(s), numbness in extremities or weakness in extremities [facility] ED PFSH: Medical History ASHD (arteriosclerotic heart disease) Bilateral carotid artery stenosis CAD (coronary artery disease) Carotid artery stenosis Chest pain Atypical chest pain likely MSK Diabetes Dyslipidemia Hypertension 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 Surgical History H/O cataract extraction History of PTCA Family History Mother CAD (coronary artery disease) Father CAD (coronary artery disease) Brother CAD (coronary artery disease) Sister CAD (coronary artery disease) Chronic kidney disease (CKD) Diabetes Hyperlipidemia Hypertension Stroke Denies family history of Clotting disorder Dementia Suicide Anesthesia complication Bleeding disorder Lung disease Cancer Social History Smoking and tobacco status: former smoker Quit status (tobacco): has quit using tobacco Year quit tobacco: 2003 Former quit date comment: smoked 1 pack per day x 40 years Alcohol intake: never Pets and animals: No Physical Exam Const: COMMON NORMALS: no acute distress, patient oriented x3 and alert GENERAL APPEARANCE: cooperative and comfortable HENMT: COMMON NORMALS: normocephalic HEAD & SCALP: normocephalic MOUTH: Normal oral and palatal mucosa present THROAT: posterior oropharynx normal and uvula midline Neck/C-Spine: COMMON NORMALS: supple GENERAL: Yes normal visual inspection Resp: COMMON NORMALS: normal respiratory effort, No retractions, No use of accessory muscles and clear to auscultation bilaterally AUSCULTATION: clear to auscultation bilaterally Cardio: COMMON NORMALS: regular rate, regular rhythm, S1 normal heart sound present, S2 normal heart sound present, No gallops present (Cardio), No clicks present (Cardio), No murmurs present (Cardio) and Peripheral pulses 2+ throughout RATE: regular rate RHYTHM: regular rhythm HEART SOUNDS: S1 normal heart sound present and S2 normal heart sound present PERIPHERAL PULSES: Peripheral pulses 2+ throughout GI: COMMON NORMALS: Normal to inspection, nondistended, normoactive bowel sounds present, Soft to palpation, non-tender and no masses PALPATION: Yes Soft to palpation : COMMON NORMALS: Yes no CVA tenderness BLADDER/KIDNEY EXAM: Yes no CVA tenderness Back/Pelvis: COMMON NORMALS: no CVA tenderness THORACIC SPINE/UPPER BACK: Yes thoracic spinal tenderness T-spine tenderness location: T7, T8 and T9 and Yes paraspinal muscle tenderness Thoracic paraspinal muscle tenderness: bilateral Extremity: COMMON NORMALS: normal to inspection Neuro: COMMON NORMALS: patient oriented x3 SENSORIUM/ORIENTATION: Yes alert GAIT: Yes Normal gait present Skin: GENERAL SKIN EXAM: dry skin Course Vital Signs: Vital signs: Vital Signs Temperature 978.1 F H 10/06/22 07:18 Pulse Rate 90 10/06/22 07:18 Respiratory Rate 16 10/06/22 07:18 Blood Pressure 152/73 11/29/22 07:23 Pulse Oximetry 97 10/06/22 07:18 Oxygen Delivery Me thod 10/06/22 07:18 MDM - Back Pain/Injury Medical Decision Making Patient is an 82-year-old female comes in the ED with acute on chronic back pain. Patient has been having this mid back pain for over a year now. She has seen Dr. Ann and then was referred to the pain management clinic and saw Dr. Carias. She is currently on tramadol but states that not helping. Flareup of worsening pain started approximately 1 week ago. Pain is located in the middle of the back and radiates out to the sides and back laterally. Denies any pain radiating down the legs. Vital stable. Exam of patient showed some T-spine tenderness around T7-T8 and T9 region. She also had some thoracic paraspinal muscle tenderness bilaterally. The rest of exam is benign. Thoracic spine x-ray showed no acute fractures or findings. Patient was given a dose of morphine and muscle relaxer here in the ED and her symptoms improved. She was diagnosed with back pain and discharged home with a prescription for couple hydrocodone to use for acute pain and a muscle relaxer. Return to ED precautions given. Follow-up with Dr. Ann for further evaluation of back pain. Patient understood and agreed with plan. Labs Radiology Impressions Thoracic Spine X-Ray 10/06/22 08:04 IMPRESSION: No acute fracture or malalignment. Discharge Plan Discharge Patient Disposition: Home Clinical Impression: Back pain Qualifiers: Back pain location: thoracic back pain Chronicity: chronic Back pain laterality: bilateral Qualified Code(s): M54.6 - Pain in thoracic spine Condition: Stable Prescriptions: New methocarbamol 750 mg tablet 750 mg PO Q8H PRN (Reason: Back muscle spasms and pain) Qty: 15 0RF No Action clopidogrel [Plavix] 75 mg tablet 75 mg PO DAILY@2100 nitroglycerin [Nitrostat] 0.4 mg tablet, sublingual 0.4 mg SUBLINGUAL Q5M PRN (Reason: chest pains) Rx Instructions: do not exceed 3 doses per episode multivitamin Tablet 1 tab PO DAILY@1600 folic acid 400 mcg tablet 0.4 mg PO DAILY@1600 atorvastatin 40 mg tablet 40 mg PO DAILY@2100 aspirin [Adult Low Dose Aspirin] 81 mg tablet,delayed release (DR/EC) 81 mg PO DAILY@2100 alprazolam 0.5 mg tablet 1 mg PO BID PRN (Reason: Anxiety) bupivacaine (PF) 0.25 % (2.5 mg/mL) solution 1 ml Infiltration ONCE Qty: 1 0RF lidocaine (PF) 10 mg/mL (1 %) solution 1 ml Infiltration ONCE Qty: 1 0RF biotin 1,000 mcg tablet,chewable 1,000 mcg PO DAILY azelaic acid 15 % gel 1 applic topical BID Qty: 50 2RF Rx Instructions: Apply a pea sized amount to face twice daily amlodipine 2.5 mg tablet 2.5 mg PO DAILY Qty: 90 3RF Rx Instructions: Dose increased to 5mg daily on 02/05/[address] Weems, pt will only take 2.5mg daily isosorbide mononitrate 120 mg tablet extended release 24 hr See Rx Instructions .ROUTE .COMPLEX Qty: 90 3RF Dose Instruction: TAKE 1 TABLET BY MOUTH DAILY AT 9 PM Rx Instructions: TAKE 1 TABLET BY MOUTH EVERY EVENING AT 9 PM potassium chloride 20 mEq tablet extended release 20 meq PO Q6H Qty: 8 0RF Rx Instructions: Take 1 tab every 6 hrs x 8 doses, repeat lab 10/08/22 magnesium 500 mg Tablet 500 mg PO DAILY@1600 potassium 99 mg Tablet 99 mg PO DAILY@1600 ascorbic acid (vitamin C) [Vitamin C] 500 mg Tablet 500 mg PO DAILY@1600 zinc 50 mg Capsule 50 mg PO DAILY@1600 cholecalciferol (vitamin D3) [Vitamin D3] 125 mcg (5,000 unit) Tablet 125 mcg PO DAILY@1600 Discharge Orders: Discharge ED (Routine); Ordered 10/06/22 Ordered By: Shiraz Solomon Referrals: Kassie Toscano [Primary Care Provider] - Discharge Diet: Regular Discharge Activity: Increase activity as tolerated Patient Instructions: Back Pain Activity Restrictions/Additional Instructions: Follow-up with medical provider as directed. Call Dr. Ann's office after discharge to set up an appointment for follow-up with them on your back pain. Take medications as prescribed. Return to the ER or your medical provider if condition worsens. Please read and understand discharge instructions. Thank you for choosing [facility] for your healthcare needs today. Please realize this is an emergency room and that we are providing you with a medical screening exam and this may not be complete and all inclusive of all the testing and or work up that you may need to determine your ailment or severity of your illness. It is very important that you follow up as instructed or that you return to the Emergency Department should you have concerns or if your condition changes or worsens in any way. Coding Level of Care Code ED Diversity Specialist for Maulik Narvaez Exam Comprehensive
--- NOTE | 2022-10-06 08:04 | XRR_ITS ---
PROCEDURE INFORMATION: Exam: XR Thoracic Spine Exam date and time: 10/06/2022 8:15 AM Age: 82 years old Clinical indication: Pain in thoracic spine; Prior surgery; Surgery type: Pacemaker, cardiac stents; Additional info: Mid back pain TECHNIQUE: Imaging protocol: Radiologic exam of the thoracic spine. Views: 3 views. COMPARISON: CT thoracic spin wo con* [id number] 07/03/2022 9:21 AM FINDINGS: Tubes, catheters and devices: Cardiac rhythm maintenance device is in place. Bones/joints: No acute fracture or malalignment. 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 Soft tissues: Unremarkable. XR/XR thoracic spine 3V* [id number] IMPRESSION: No acute fracture or malalignment.
[2022-10-06] MEDS: morphine 4 mg/mL SDV 1 mL IM (08:35)
[2022-10-06] MEDS: orphenadrine 30 mg/mL Inj 2 mL 60 MG IM (08:35)
== END 2022-10-06 09:18 | disposition home or self-care (01) ==
PROVIDERS: Emergency Provider Physician Assistant; PCP Registered Nurse
DX: M54.6 Pain in thoracic spine (principal); G89.29 Other chronic pain
CPT/HCPCS: 72072; 96372; 99284; J2270; J2360

== ENCOUNTER 2022-10-08 09:32 | Outpatient (CLI) | payer MEDICARE, OTHER, SELFPAY ==
[2022-10-08 10:25] LABS: Anion Gap 15.1 (5-19); Blood Urea Nitrogen 11 mg/dL (8-23); Calcium 9.5 mg/dL (8.5-10.5); Carbon Dioxide 25 mmol/L (22-29); Chloride 105 mmol/L (98-107); Glucose 121 mg/dL (65-115); Osmolality Calculated 293 mOsm/kg (285-295); Potassium 4.1 mmol/L (3.5-5.1); Sodium 141 mmol/L (136-145)
== END 2022-10-08 09:33 | disposition home or self-care (01) ==
LOC: LAB 09:34
PROVIDERS: PCP Registered Nurse; Visit Provider Internal Medicine Cardiovascular Disease
DX: E87.6 Hypokalemia (principal)
CPT/HCPCS: 36415; 80048

== ENCOUNTER 2022-10-12 11:08 | Outpatient (CLI) | payer MEDICARE, OTHER, SELFPAY ==
[2022-10-12 12:41] LABS: Anion Gap 16.8 (5-19); Blood Urea Nitrogen 11 mg/dL (8-23); Calcium 9.8 mg/dL (8.5-10.5); Carbon Dioxide 22 mmol/L (22-29); Chloride 104 mmol/L (98-107); Glucose 105 mg/dL (65-115); Osmolality Calculated 288 mOsm/kg (285-295); Potassium 3.8 mmol/L (3.5-5.1); Sodium 139 mmol/L (136-145)
== END 2022-10-12 11:09 | disposition home or self-care (01) ==
LOC: LAB 11:08
PROVIDERS: PCP Registered Nurse; Visit Provider Internal Medicine Cardiovascular Disease
DX: Z45.010 Encounter for checking and testing of cardiac pacemaker pulse generator [battery] (principal); E78.5 Hyperlipidemia, unspecified; I25.118 Atherosclerotic heart disease of native coronary artery with other forms of angina pectoris; I65.21 Occlusion and stenosis of right carotid artery; R07.89 Other chest pain
CPT/HCPCS: 80048

== ENCOUNTER 2022-10-15 00:43 | Emergency (ER) | payer MEDICARE, OTHER, SELFPAY ==
[2022-10-15 00:48] VITALS: BP 217/104; PULSE 81; RESP 16; TEMP 37.1; O2SAT 97; BMI 23.7
--- NOTE | 2022-10-15 00:48 | ED_ITS ---
HPI - Back Pain/Injury General: Chief Complaint: Back Pain/Injury Stated Complaint: Back Pain Level 10 Time Seen by Provider: 10/15/22 00:48 History of Present Illness: 82-year-old female comes in today with exacerbation of chronic back pain. Patient reports spasms in her mid to low back on the right side. Patient reports that she has not been taking her medication routinely because she is supposed to have her pacemaker changed on Wednesday and was concerned about whether or not it would interfere of her procedure. Patient denies any fever, loss of bowel or bladder control, or nausea or vomiting. Patient appears in mild to moderate pain. Patient appears to be having spasms. Associated symptoms: Deny fever(s), nausea or vomiting Review of Systems Const: Denies: fever(s) Card: Denies: chest pain Resp: Denies: dyspnea GI: Denies: nausea or vomiting : Denies: difficulty voiding Musc: Reports: back pain PFSH ED PFSH: Medical History ASHD (arteriosclerotic heart disease) Bilateral carotid artery stenosis CAD (coronary artery disease) Carotid artery stenosis Chest pain Atypical chest pain likely MSK Diabetes Dyslipidemia Hypertension 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 Surgical History H/O cataract extraction History of PTCA Family History Mother CAD (coronary artery disease) Father CAD (coronary artery disease) Brother CAD (coronary artery disease) Sister CAD (coronary artery disease) Chronic kidney disease (CKD) Diabetes Hyperlipidemia Hypertension Stroke Denies family history of Clotting disorder Dementia Suicide Anesthesia complication Bleeding disorder Lung disease Cancer Social History Smoking and tobacco status: former smoker Quit status (tobacco): has quit using tobacco Year quit tobacco: 2003 Former quit date comment: smoked 1 pack per day x 40 years Alcohol intake: never Pets and animals: No Physical Exam Const: COMMON NORMALS: alert HENMT: COMMON NORMALS: normocephalic HEAD & SCALP: normocephalic THROAT: posterior oropharynx normal Neck/C-Spine: CERVICAL SPINE: Yes cervical ROM normal Resp: COMMON NORMALS: normal respiratory effort and clear to auscultation bilaterally AUSCULTATION: clear to auscultation bilaterally Cardio: COMMON NORMALS: regular rate and regular rhythm RATE: regular rate RHYTHM: regular rhythm GI: COMMON NORMALS: non-tender Back/Pelvis: THORACIC SPINE/UPPER BACK: Yes paraspinal muscle spasm Thoracic paraspinal muscle spasm: right LUMBAR SPINE/LOWER BACK: Yes paraspinal muscle spasm Lumbar paraspinal muscle spasm: right Extremity: COMMON NORMALS: normal to inspection Neuro: SENSORIUM/ORIENTATION: Yes alert Skin: COMMON NORMALS: turgor normal GENERAL SKIN EXAM: turgor normal Course Vital Signs: Vital signs: Vital Signs Temperature 98.8 F 10/15/22 00:48 Pulse Rate 81 10/15/22 00:48 Respiratory Rate 16 10/15/22 00:48 Blood Pressure 217/104 10/15/22 00:48 Pulse Oximetry 97 10/15/22 00:48 Oxygen Delivery Me thod 10/15/22 00:48 MDM - Back Pain/Injury Medical Decision Making 82-year-old female comes in today with complaints of exacerbation of chronic back pain and muscle spasms. On exam patient has tenderness on palpation of the right thoracic and lumbar paraspinal muscles. Patient moves extremities well. Patient is weightbearing and walking without difficulty. Differential diagnosis includes chronic back pain, exacerbation of chronic back pain, muscle spasm, intervertebral disc disease. Patient was given 1 mg of Dilaudid IM along with 60 mg orphenadrine. Patient was recommended continue with her home medications as prescribed and follow-up with primary care or pain school childcare attendant for further treatment. Discharge Plan Discharge Patient Disposition: Home Clinical Impression: Back muscle spasm Chronic back pain Qualifiers: Back pain location: back pain in unspecified location Back pain laterality: right Qualified Code(s): M54.9 - Dorsalgia, unspecified Condition: Stable Prescriptions: No Action clopidogrel [Plavix] 75 mg tablet 75 mg PO DAILY@2100 nitroglycerin [Nitrostat] 0.4 mg tablet, sublingual 0.4 mg SUBLINGUAL Q5M PRN (Reason: chest pains) Rx Instructions: do not exceed 3 doses per episode multivitamin Tablet 1 tab PO DAILY@1600 folic acid 400 mcg tablet 0.4 mg PO DAILY@1600 atorvastatin 40 mg tablet 40 mg PO DAILY@2100 aspirin [Adult Low Dose Aspirin] 81 mg tablet,delayed release (DR/EC) 81 mg PO DAILY@2100 alprazolam 0.5 mg tablet 1 mg PO BID PRN (Reason: Anxiety) bupivacaine (PF) 0.25 % (2.5 mg/mL) solution 1 ml Infiltration ONCE Qty: 1 0RF lidocaine (PF) 10 mg/mL (1 %) solution 1 ml Infiltration ONCE Qty: 1 0RF biotin 1,000 mcg tablet,chewable 1,000 mcg PO DAILY azelaic acid 15 % gel 1 applic topical BID Qty: 50 2RF Rx Instructions: Apply a pea sized amount to face twice daily amlodipine 2.5 mg tablet 2.5 mg PO DAILY Qty: 90 3RF Rx Instructions: Dose increased to 5mg daily on 02/05/[address] Weems, pt will only take 2.5mg daily isosorbide mononitrate 120 mg tablet extended release 24 hr See Rx Instructions .ROUTE .COMPLEX Qty: 90 3RF Dose Instruction: TAKE 1 TABLET BY MOUTH DAILY AT 9 PM Rx Instructions: TAKE 1 TABLET BY MOUTH EVERY EVENING AT 9 PM potassium chloride 20 mEq tablet extended release 20 meq PO DAILY Qty: 30 5RF magnesium 500 mg Tablet 500 mg PO DAILY@1600 ascorbic acid (vitamin C) [Vitamin C] 500 mg Tablet 500 mg PO DAILY@1600 zinc 50 mg Capsule 50 mg PO DAILY@1600 cholecalciferol (vitamin D3) [Vitamin D3] 125 mcg (5,000 unit) Tablet 125 mcg PO DAILY@1600 methocarbamol 750 mg tablet 750 mg PO Q8H PRN (Reason: Back muscle spasms and pain) Qty: 15 0RF Discharge Orders: Discharge ED (Routine); Ordered 10/15/22 Ordered By: Clayton Jin Referrals: Kassie Toscano [Primary Care Provider] - Discharge Diet: Usual diet Discharge Activity: Increase activity as tolerated Patient Instructions: Opioid Safety, Pain Management Activity Restrictions/Additional Instructions: Continue with routine medications as directed. Follow-up with primary care for further instruction. Return to ER for loss of bowel or bladder control, fever greater than 100.4, or new concerns. Coding Level of Care Code ED District Representative for Maulik Fwd Exam Comprehensive
[2022-10-15] MEDS: orphenadrine 30 mg/mL Inj 2 mL 60 MG IM (01:07)
[2022-10-15] MEDS: HYDROmorphone 1 mg/mL INJ 1 mL IM (01:07)
[2022-10-15 01:50] VITALS: BP 142/79; PULSE 76; RESP 14; O2SAT 98
== END 2022-10-15 01:51 | disposition home or self-care (01) ==
PROVIDERS: Emergency Provider Nurse Practitioner Family; PCP Registered Nurse
DX: G89.29 Other chronic pain (principal); M54.9 Dorsalgia, unspecified; M62.830 Muscle spasm of back; Z79.02 Long term (current) use of antithrombotics/antiplatelets; Z79.82 Long term (current) use of aspirin; Z87.891 Personal history of nicotine dependence; I25.10 Atherosclerotic heart disease of native coronary artery without angina pectoris; E11.9 Type 2 diabetes mellitus without complications; E78.5 Hyperlipidemia, unspecified; I10 Essential (primary) hypertension; Z95.0 Presence of cardiac pacemaker; Z85.12 Personal history of malignant neoplasm of trachea
CPT/HCPCS: 96372; 99284; J1170; J2360

== ENCOUNTER 2022-10-16 09:42 | Observation (INO) | payer MEDICARE, OTHER, SELFPAY ==
[2022-10-13 09:56] LABS: Basophils % 0.5 %; Eosinophils # 0.1 10^3/uL (0.0-0.8); Eosinophils % 1.2 %; Hematocrit 37.5 % (37.0-47.0); Hemoglobin 12.3 g/dL (11.5-15.3); Lymphocytes # 1.4 10^3/uL (0.8-4.8); Lymphocytes % 19.1 %; Mean Corpuscular HGB Conc 32.8 g/dL (30.0-36.0); Mean Corpuscular Hemoglobin 31.1 pg (28.0-34.0); Mean Corpuscular Volume 94.9 fl (81-99); Mean Platelet Volume 8.9 fL (7.4-10.4); Monocytes # 0.5 10^3/uL (0.2-0.9); Monocytes % 6.6 %; Neutrophils # 5.33 10^3/uL (1.8-7.7); Neutrophils % 72.3 %; Nucleated Red Blood Cells % 0 %; Platelet Count 214 10^3/cmm (130-400); Red Blood Count 3.95 10^6/uL (4.1-5.3); Red Cell Distribution Width 13.7 % (12.1-15.1); White Blood Count 7.4 10^3/uL (4.0-10.0)
[2022-10-13 10:15] LABS: INR 0.98 (0.83-1.21); Prothrombin Time (Patient) 13.3 Seconds (12.0-15.1)
[2022-10-16] VITALS (13 sets, daily range): BP systolic 121–155; BP diastolic 52–108; PULSE 70–98; RESP 15–42; TEMP 36.9–37.1; O2SAT 90–97; BMI 23.6
[2022-10-16 06:44] LABS: Glucose Point of Care 143 mg/dL (70-110)
--- NOTE | 2022-10-16 07:20 | W.PM.OPSUD ---
Surgery/Procedure H&P Update DATE OF PROCEDURE: October 16, 2022 DATE H&P PERFORMED: 09/29/22 H&P UPDATE INFORMATION: I have reviewed H&P completed within last 30 days, I have examined patient prior to procedure and No changes to prior documentation PREOP DIAGNOSIS: Pacemaker ALBERTINA PRIMARY INDICATION FOR PROCEDURE: Symptomatic bradycardia, ALBERTINA PLANNED PROCEDURE: Operation Date: 10/16/22 07:00 Proposed Procedures p 36912 Pacemaker Single Generator only exchange Z95.0,Z45.010,I25.118,R07.89(Not Applicable) - Macie Weems MD PATIENT REASSESSED PRIOR TO SEDATION, WITH NO CHANGE NOTED: Yes PHYSICAL EXAM: alert, oriented x 3, clear to auscultation bilaterally, regular rate & rhythm and operative site marked AIRWAY EVAL/ANESTHESIA PLAN: normal airway, see other exam findings, ASA III, Monitored Anesthesia, Local Anesthesia, Risks, benefits & alternatives of sedation and/or procedure discussed and Patient agrees to continue as planned
--- NOTE | 2022-10-16 09:00 | PC.NURSE ---
Around 0900: Transfer orders received. Patient transferred to CSU. Report given to DERICK Thakkar. Dressing over surgical site to patients left upper chest clean, dry, et intact. No drainage or hematoma noted. Vitals stable. Education provided to patient over activity restrictions and s/s of infection. Patient verbalized understanding of all teaching. Patient and belongs transferred to CSU via wheelchair.
--- NOTE | 2022-10-16 09:06 | PM.OP ---
Operative Report Date of procedure: October 16, 2022 Pre-op diagnosis: Preop Diagnosis Pacemaker ALBERTINA Procedure: PROCEDURE: PACEMAKER REVISION PREOPERATIVE DIAGNOSIS: Pacemaker elective replacement indication. POSTOPERATIVE DIAGNOSIS: Pacemaker elective replacement indication. ESTIMATED BLOOD LOSS: None COMPLICATIONS: None. BRIEF HISTORY: The patient is 82-year-old white female who had a permanent pacemaker implantation for symptomatic bradycardia. The patient was found to have elective replacement indication, during routine office followup evaluation. For further management of patient's condition for the symptomatic bradycardia, the patient required a pacemaker revision. Patient required a dual-chamber pacemaker for symptom relief and the need for AV synchrony The procedure was explained to the patient in detail with the risks and benefits. The risks of bleeding, hematoma, vascular injury, infection and other concomitant complications were explained in detail, which the patient understood well and consented to proceed. PROCEDURES PERFORMED: 1. Explantation of the old pacemaker generator. 2. Implantation of the new generator. The patient brought to the Cardiac Psychologist Research Assistant. The left side of the neck and the subclavian area were cleaned and draped in a sterile fashion. 1% Xylocaine was used for local anesthetic agent. A 2 inch long incision was made just below the previous pacemaker scar. By sharp and blunt dissection, the pacemaker pocket was accessed. The old generator was delivered from the pocket. The generator was detached from the lead. The new Medtronic generator was attached to the lead. The pacemaker pocket was copiously irrigated with vancomycin solution. Complete hemostasis was achieved. The lead was positioned behind the generator and the generator was attached to the pectoralis fascia by suturing with 0 Surgilon. Sponge counts were confirmed. The pacemaker pocket was closed in layers. Skin was approximated using 4-0 Vicryl. EXPLANTED DEVICE: PACEMAKER GENERATOR: Brand: Adapta Model number: [id number]. Serial number: [id number]. Date of implant: 08/21/2013 IMPLANTED DEVICES: ? ATRIAL LEAD: Date of Implantation: 08/21/2013 ? ? ? MODEL NUMBER: 5076/[id number]. ? ? ? SERIAL NUMBER: [id number]. ? ? ? MAKE: Medtronic. VENTRICULAR LEAD: ? ? ? Date of implantation: 08/21/2013 MODEL NUMBER: [id number]/[id number] ? ? ? SERIAL NUMBER: [id number]. ? ? ? MAKE: Medtronic. IMPLANTED GENERATOR Date of implantation : 10/16/2022 Brand: Ariana XT DR JENNIFER Muñoz. Model number: [id number] Serial number: [id number] Make: Medtronic Stimulation Threshold: The ventricular sensing was 15.3 millivolts. Ventricular lead impedance was 627 ohms and the pacing threshold was 1.25 volts at 0.4 milliseconds. The atrial sensing was 4.6 millivolts. Atrial lead impedance was 475 ohms and the pacing threshold was 0.5 volts at 0.4 milliseconds. The pacemaker was set for AAIR/DDDR mode with an upper rate of 130 and a lower rate of 60. A pressure dressing was applied over the pacemaker site. The patient was transferred back to medical floor in stable condition. Sponge counts were correct.
[2022-10-16] MEDS: dextrose 5%-sod chloride 0.45% 1,000 ML 75 ML IV (10:06)
[2022-10-16] MEDS: metoprolol tartrate 50 mg Tablet 100 MG PO (12:09)
[2022-10-16] MEDS: potassium chloride ER 20 mEq Tablet PO (12:10)
[2022-10-16] MEDS: hydroCHLOROthiazide 25 mg Tablet PO (12:11)
[2022-10-16] MEDS: cholecalciferol (vitamin D3) 5,000 unit Tablet 5000 UNIT PO (17:07)
[2022-10-16] MEDS: multivitamin therapeutic Tablet 1 TAB PO (17:07)
[2022-10-16] MEDS: ascorbic acid 500 mg Tablet PO (17:08)
[2022-10-16] MEDS: zinc gluconate 50 mg Tablet PO (17:08)
[2022-10-16] MEDS: methocarbamol 750 mg Tablet PO (18:57)
[2022-10-16] MEDS: isosorbide mononitrate ER 60 mg Tablet 120 MG PO (20:08)
[2022-10-16] MEDS: aspirin 81 mg EC Tablet PO (20:08)
[2022-10-16] MEDS: clopidogrel 75 mg Tablet PO (20:08)
[2022-10-16] MEDS: atorvastatin 40 mg Tablet PO (20:08)
[2022-10-16] MEDS: ALPRAZolam 0.5 mg Tablet 1 MG PO (20:08)
[2022-10-17 00:07] VITALS: BP 131/65; PULSE 80; RESP 23; TEMP 36.8; O2SAT 95
[2022-10-17] MEDS: dextrose 5%-sod chloride 0.45% 1,000 ML 75 ML IV (00:51)
[2022-10-17 04:00] VITALS: BP 125/61; PULSE 85; RESP 20; TEMP 36.6; O2SAT 94
[2022-10-17 06:00] VITALS: PULSE 78
--- NOTE | 2022-10-17 06:00 | ECG_ITS ---
[facility] Test Date: 2022-10-17 Pat Name: Ariane Perry Department: Room: 112 Gender: Female Vocal Artist: : 1940 Requested By: Macie Weems Order Number: [id number] Linden MD: Carmelo Eddy M.D. Measurements Intervals [place] Rate: 66 P: 75 CT: 235 QRS: -73 QRSD: 146 T: 78 QT: 459 QTc: 484 Interpretive Statements SINUS RHYTHM WITH FIRST DEGREE AV BLOCK LEFT AXIS DEVIATION [QRS AXIS < -30] LEFT BUNDLE BRANCH BLOCK [120+ ms QRS DURATION, 80+ ms Q/S IN V1/V2, 85+ ms R IN I/aVL/V5/V6] Compared to ECG 07/18/2021 13:02:38 First degree AV block now present Atrial-paced complex(es) or rhythm no longer present Electronically Signed On 10-17-2022 16:46:59 POWERHOUSE TENDER by Carmelo Eddy M.D. [id number]
--- NOTE | 2022-10-17 08:11 | P.DS_ITS ---
Discharge Providers Date of Admission: 10/16/22 09:42 Date of Discharge: October 17, 2022 Attending Provider at Admission: Macie Weems MD Attending Provider at Discharge: Macie Weems MD Primary Care Provider: Kassie Toscano Diagnoses at Discharge Discharge Diagnosis (1) Pacemaker at end of battery life: Status: Acute (2) Chronic back pain: Status: Acute Qualifiers: Back pain laterality: right Back pain location: back pain in unspecified location Qualified Code(s): M54.9 - Dorsalgia, unspecified; G89.29 - Other chronic pain (3) Carotid artery stenosis: Status: Acute (4) Dyslipidemia: Status: Acute (5) Hypertension: Status: Chronic Qualifiers: Hypertension type: essential hypertension Qualified Code(s): I10 - Essential (primary) hypertension Reason for Visit Reason for Visit: Z95.0 Brief History: Patient was brought in yesterday electively for pacemaker generator change. Hospital Course Hospital Course The generator change was accomplished on the left. No complications were noted. Physical Exam Narrative: GENERAL: In general she is awake and alert this morning HEENT: Exam within normal limits. NECK: Supple without jugular vein distention. The carotid upstroke is normal without bruits. BACK: Exam normal. LUNGS: Clear. HEART: Regular rate and rhythm. ABDOMEN: Benign without organomegaly or tenderness. EXTREMITIES: No edema. NEUROLOGIC: Exam normal. SKIN: Unremarkable. The incision is dry and healing well. No redness, fluctuance or bleeding. Discharge Data Studies Completed and Pending Pending at discharge Category Date Time Status WORKER'S COMPENSATION CLAIMS EXAMINER request for service Routine Exams 10/16/22 07:00 Ordered Laboratory Results WBC 7.4 10^3/uL (4.0-10.0) 10/13/22 09:35 RBC 3.95 10^6/uL (4.1-5.3) L 10/13/22 09:35 Hgb 12.3 g/dL (11.5-15.3) 10/13/22 09:35 Hct 37.5 % (37.0-47.0) 10/13/22 09:35 MCV 94.9 fl (81-99) 10/13/22 09:35 MCH 31.1 pg (28.0-34.0) 10/13/22 09:35 MCHC 32.8 g/dL (30.0-36.0) 10/13/22 09:35 RDW 13.7 % (12.1-15.1) 10/13/22 09:35 Plt Count 214 10^3/cmm (130-400) 10/13/22 09:35 MPV 8.9 fL (7.4-10.4) 10/13/22 09:35 Neut % (Auto) 72.3 % 10/13/22 09:35 Lymph % (Auto) 19.1 % 10/13/22 09:35 Rhea % (Auto) 6.6 % 10/13/22 09:35 Eos % (Auto) 1.2 % 10/13/22 09:35 Baso % (Auto) 0.5 % 10/13/22 09:35 Neut # (Auto) 5.33 10^3/uL (1.8-7.7) 10/13/22 09:35 Lymph # (Auto) 1.4 10^3/uL (0.8-4.8) 10/13/22 09:35 Rhea # (Auto) 0.5 10^3/uL (0.2-0.9) 10/13/22 09:35 Eos # (Auto) 0.1 10^3/uL (0.0-0.8) 10/13/22 09:35 Baso # (Auto) 0.0 10^3/uL (0.0-0.1) 10/13/22 09:35 Nucleated RBC % (auto) 0 % 10/13/22 09:35 Nucleated RBCs # 0.0 /100WBC 10/13/22 09:35 PT 13.3 Seconds (12.0-15.1) 10/13/22 09:35 INR 0.98 (0.83-1.21) 10/13/22 09:35 POC Glucose 143 mg/dL (70-110) H 10/16/22 06:29 Blood Type O Positive 10/13/22 09:35 Rho(D) Type Positive 10/13/22 09:35 Antibody Screen Negative 10/13/22 09:35 Procedures Performed pacemaker generator change Vitals Last Vital Signs Temp 97.9 F 10/17/22 04:00 Pulse 78 10/17/22 06:00 Resp 20 H 10/17/22 04:00 BP 125/61 10/17/22 04:00 Pulse Ox 94 10/17/22 04:00 O2 Del Method 10/17/22 04:00 Discharge Plan Discharge Patient Disposition: Home Prescriptions: New cephalexin 250 mg capsule 250 mg PO Q6H 7 Days Qty: 28 0RF Continued clopidogrel [Plavix] 75 mg tablet 75 mg PO DAILY@2100 nitroglycerin [Nitrostat] 0.4 mg tablet, sublingual 0.4 mg SUBLINGUAL Q5M PRN (Reason: chest pains) Rx Instructions: do not exceed 3 doses per episode multivitamin Tablet 1 tab PO DAILY@1600 folic acid 400 mcg tablet 0.4 mg PO DAILY@1600 atorvastatin 40 mg tablet 40 mg PO DAILY@2100 aspirin [Adult Low Dose Aspirin] 81 mg tablet,delayed release (DR/EC) 81 mg PO DAILY@2100 alprazolam 0.5 mg tablet 1 mg PO BID PRN (Reason: Anxiety) bupivacaine (PF) 0.25 % (2.5 mg/mL) solution 1 ml Infiltration ONCE Qty: 1 0RF lidocaine (PF) 10 mg/mL (1 %) solution 1 ml Infiltration ONCE Qty: 1 0RF biotin 1,000 mcg tablet,chewable 1,000 mcg PO DAILY azelaic acid 15 % gel 1 applic topical BID Qty: 50 2RF Rx Instructions: Apply a pea sized amount to face twice daily amlodipine 2.5 mg tablet 2.5 mg PO DAILY Qty: 90 3RF Rx Instructions: Dose increased to 5mg daily on 02/05/[address] Weems, pt will only take 2.5mg daily isosorbide mononitrate 120 mg tablet extended release 24 hr See Rx Instructions .ROUTE .COMPLEX Qty: 90 3RF Dose Instruction: TAKE 1 TABLET BY MOUTH DAILY AT 9 PM Rx Instructions: TAKE 1 TABLET BY MOUTH EVERY EVENING AT 9 PM potassium chloride 20 mEq tablet extended release 20 meq PO DAILY Qty: 30 5RF magnesium 500 mg Tablet 500 mg PO DAILY@1600 ascorbic acid (vitamin C) [Vitamin C] 500 mg Tablet 500 mg PO DAILY@1600 zinc 50 mg Capsule 50 mg PO DAILY@1600 cholecalciferol (vitamin D3) [Vitamin D3] 125 mcg (5,000 unit) Tablet 125 mcg PO DAILY@1600 metoprolol ta-hydrochlorothiaz 100-25 mg Tablet 1 tab PO DAILY methocarbamol 750 mg tablet 750 mg PO Q8H PRN (Reason: Back muscle spasms and pain) Qty: 15 0RF Discharge Orders: Discharge Order (Routine); Ordered 10/17/22 Ordered By: Carmelo Eddy Referrals: Emma Clinton FNP [Nurse Practitioner] - 10/22/22 (Please arrange for the patient to be seen on 10/22 for pacemaker check and wound check.) Discharge Diet: Usual diet Discharge Activity: Limit activity as instructed Patient Instructions: Pacemaker (DC), Opioid Safety, Post Pacemaker - Dank Activity Restrictions/Additional Instructions: The office will call on Wednesday to schedule appointment for for follow- up. Do not get the bandage wet until seen in the office. Do not lift the arm above the level of the shoulder until seen in the office. Wear shoulder immobilizer at night. Take antibiotics for a minimum of 5 days. Discharge Attestations Time Spent in Discharge Care*: less than 30 min Status at Discharge: Cognitive status at discharge: cognitively intact , Behavioral status at discharge: cooperative , Quality Metrics Clinical Quality Measures [ No reported AMI, CVA or VTE this stay] Coding Level of Care Code Established Pt Acute Chg FW DC note Patient Type Established History Detailed Exam Detailed Medical Decision Making Moderate Complexity Diagnoses Pacemaker at end of battery life Z45.010 Chronic back pain M54.9; G89.29 Back pain laterality: right Back pain location: back pain in unspecified location Carotid artery stenosis I65.29 Dyslipidemia E78.5 Hypertension I10 Hypertension type: essential hypertension
[2022-10-17 08:43] VITALS: RESP 18; O2SAT 95
[2022-10-17] MEDS: ALPRAZolam 0.5 mg Tablet 1 MG PO (08:43)
[2022-10-17] MEDS: oxyCODONE-APAP 5-325 mg Tablet 1 TAB PO (08:43)
[2022-10-17] MEDS: amlodipine 5 mg Tablet 2.5 MG PO (08:43)
[2022-10-17] MEDS: hydroCHLOROthiazide 25 mg Tablet PO (08:43)
[2022-10-17] MEDS: potassium chloride ER 20 mEq Tablet PO (08:43)
[2022-10-17] MEDS: metoprolol tartrate 50 mg Tablet 100 MG PO (08:44)
[2022-10-17] MEDS: methocarbamol 750 mg Tablet PO (10:23)
[2022-10-17 10:28] VITALS: BP 118/54; PULSE 75; RESP 18; O2SAT 98
[2022-10-17 11:30] VITALS: BP 118/54; PULSE 75; RESP 18; O2SAT 98
--- NOTE | 2022-10-17 11:31 | PC.NURSE ---
Discharge Note Patient discharged to home via w/c accompanied by spouse. Discharge instructions reviewed with patient and/or herbicide service sales representative. Mobile pharmacy medications and/or prescriptions provided. Belongings/home medications returned.
== END 2022-10-17 09:45 | disposition home or self-care (01) ==
LOC: CSU 09:42
PROVIDERS: Admitting Provider Internal Medicine Cardiovascular Disease; PCP Registered Nurse; Visit Provider Internal Medicine Cardiovascular Disease
DX: Z45.010 Encounter for checking and testing of cardiac pacemaker pulse generator [battery] (principal); I25.118 Atherosclerotic heart disease of native coronary artery with other forms of angina pectoris; M54.9 Dorsalgia, unspecified; G89.29 Other chronic pain; I65.29 Occlusion and stenosis of unspecified carotid artery; E78.5 Hyperlipidemia, unspecified; I10 Essential (primary) hypertension
CPT/HCPCS: 33213; 36415; 36416; 82962; 85025; 85610; 86850; 86900; 93005; 96365; 97165; 99152; 99153; C1769; C1786; G0378; J0690; J2250; J3010; J3370; J7030; J7050; J7799; L3670

== ENCOUNTER → 2022-10-29 10:30 | Outpatient (BNVA) | payer MEDICARE, OTHER, SELFPAY | PROVIDERS: PCP Registered Nurse; Visit Provider Internal Medicine Cardiovascular Disease | DX: I25.118 Atherosclerotic heart disease of native coronary artery with other forms of angina pectoris (principal); Z95.0 Presence of cardiac pacemaker; E78.5 Hyperlipidemia, unspecified; I10 Essential (primary) hypertension; I65.21 Occlusion and stenosis of right carotid artery; Z87.891 Personal history of nicotine dependence | CPT/HCPCS: 99214 ==

== ENCOUNTER → 2023-01-05 11:00 | Outpatient (BNVA) | payer MEDICARE, OTHER, SELFPAY | PROVIDERS: PCP Registered Nurse; Visit Provider Anesthesiology Pain Medicine | DX: M79.18 Myalgia, other site (principal); G89.29 Other chronic pain; M50.30 Other cervical disc degeneration, unspecified cervical region; M47.812 Spondylosis without myelopathy or radiculopathy, cervical region; M43.12 Spondylolisthesis, cervical region; M54.9 Dorsalgia, unspecified | CPT/HCPCS: 20553; 99213; J1030; J3490 ==

== ENCOUNTER → 2023-01-26 10:40 | Outpatient (BNVA) | payer MEDICARE, OTHER, SELFPAY | PROVIDERS: PCP Registered Nurse; Visit Provider Physician Assistant | DX: M47.812 Spondylosis without myelopathy or radiculopathy, cervical region (principal); M50.30 Other cervical disc degeneration, unspecified cervical region; G89.29 Other chronic pain | CPT/HCPCS: 99213 ==

== ENCOUNTER → 2023-02-01 10:36 | Outpatient (BNVA) | payer MEDICARE, OTHER, SELFPAY | PROVIDERS: PCP Registered Nurse; Visit Provider Anesthesiology Pain Medicine | DX: G89.29 Other chronic pain (principal); M50.30 Other cervical disc degeneration, unspecified cervical region; M47.812 Spondylosis without myelopathy or radiculopathy, cervical region; M43.12 Spondylolisthesis, cervical region; M47.814 Spondylosis without myelopathy or radiculopathy, thoracic region | CPT/HCPCS: 99214 ==

== ENCOUNTER → 2023-02-11 12:44 | Outpatient (BNVA) | payer MEDICARE, OTHER, SELFPAY | PROVIDERS: PCP Registered Nurse; Visit Provider Anesthesiology Pain Medicine | DX: M47.814 Spondylosis without myelopathy or radiculopathy, thoracic region (principal); G89.29 Other chronic pain | CPT/HCPCS: 64490; 64491; 64492; J3490 ==

== ENCOUNTER 2023-02-17 19:22 | Emergency (ER) | payer MEDICARE, OTHER, SELFPAY ==
[2023-02-17 19:27] VITALS: BP 178/66; PULSE 86; RESP 16; TEMP 36.8; O2SAT 95; BMI 22.1
--- NOTE | 2023-02-17 20:15 | ED_ITS ---
HPI - Back Pain/Injury General: Chief Complaint: Back Pain/Injury Stated Complaint: Back Pain Time Seen by Provider: 02/17/23 19:34 History of Present Illness: Patient is a 82-year-old female comes to the ED with acute on chronic back pain. Patient sees Dr. Carias and is currently on hydrocodone to help with back pain. She is scheduled to see Dr. Carias on the for procedure. She says her pain is becoming more severe and she is having bad back spasms as well. Her hydrocodone is not helping enough. Pain worsens with certain movements and with ambulation. Denies any recent injuries, falls or trauma to cause worsening pain. Denies any bladder or bowel incontinence, pelvic anesthesia or weakness to lower extremities. Associated symptoms: Deny abdominal pain, chills, dysuria, fatigue, fever(s), hematuria, nausea or vomiting Review of Systems Const: Denies: fever(s), chills or fatigue Eyes: Denies: change in vision or eye discomfort ENMT: Denies: throat pain, odynophagia, nasal discharge or nasal congestion Card: Denies: chest pain, palpitations, edema, swelling of feet/ankles, dyspnea on exertion or orthopnea Resp: Denies: dyspnea, productive cough or non-productive cough GI: Denies: abdominal pain, nausea, vomiting, diarrhea, constipation or hematochezia : Denies: flank pain, dysuria or hematuria Musc: Reports: back pain; Denies: neck pain or extremity swelling Skin/Breast: Denies: rash or new lesions Neuro: Denies: headache(s), numbness in extremities or weakness in extremities PFSH ED PFSH: Medical History ASHD (arteriosclerotic heart disease) Bilateral carotid artery stenosis CAD (coronary artery disease) Carotid artery stenosis Chest pain Atypical chest pain likely MSK Diabetes Dyslipidemia Hypertension 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 Surgical History H/O cataract extraction History of PTCA Family History Mother CAD (coronary artery disease) Father CAD (coronary artery disease) Brother CAD (coronary artery disease) Sister CAD (coronary artery disease) Chronic kidney disease (CKD) Diabetes Hyperlipidemia Hypertension Stroke Denies family history of Clotting disorder Dementia Suicide Anesthesia complication Bleeding disorder Lung disease Cancer Social History Smoking and tobacco status: former smoker Second hand smoke exposure: No Alcohol intake: never Pets and animals: No Physical Exam Const: COMMON NORMALS: no acute distress, patient oriented x3 and alert GENERAL APPEARANCE: cooperative HENMT: COMMON NORMALS: normocephalic HEAD & SCALP: normocephalic MOUTH: Normal oral and palatal mucosa present THROAT: posterior oropharynx normal and uvula midline Neck/C-Spine: COMMON NORMALS: supple GENERAL: Yes normal visual inspection Resp: COMMON NORMALS: normal respiratory effort, No retractions, No use of accessory muscles and clear to auscultation bilaterally AUSCULTATION: clear to auscultation bilaterally Cardio: COMMON NORMALS: regular rate, regular rhythm, S1 normal heart sound present, S2 normal heart sound present, No gallops present (Cardio), No clicks present (Cardio), No murmurs present (Cardio) and Peripheral pulses 2+ thro ughout RATE: regular rate RHYTHM: regular rhythm HEART SOUNDS: S1 normal heart sound present and S2 normal heart sound present PERIPHERAL PULSES: Peripheral pulses 2+ throughout GI: COMMON NORMALS: Normal to inspection, nondistended, normoactive bowel sounds present, Soft to palpation, non-tender and no masses PALPATION: Yes Soft to palpation : COMMON NORMALS: Yes no CVA tenderness BLADDER/KIDNEY EXAM: Yes no CVA tenderness Back/Pelvis: COMMON NORMALS: no CVA tenderness THORACIC SPINE/UPPER BACK: Yes paraspinal muscle tenderness Thoracic paraspinal muscle tenderness: right Right thoracic paraspinal muscle tenderness: T8, T9 and T10 Extremity: COMMON NORMALS: normal to inspection Neuro: COMMON NORMALS: patient oriented x3 SENSORIUM/ORIENTATION: Yes alert GAIT: Yes Normal gait present Skin: GENERAL SKIN EXAM: dry skin Course Vital Signs: Vital signs: Vital Signs Temperature 98.3 F 02/17/23 19:27 Pulse Rate 86 02/17/23 19:27 Respiratory Rate 15 02/17/23 20:29 Blood Pressure 178/66 02/17/23 19:27 Pulse Oximetry 95 02/17/23 19:27 Oxygen Delivery Me thod Room Air 02/17/23 19:27 MDM - Back Pain/Injury Medical Decision Making LumbarPatient is a 82-year-old female comes to the ED with acute on chronic back pain. Patient sees Dr. Carias and is currently on hydrocodone to help with back pain. She is scheduled to see Dr. Carias on the for procedure. She says her pain is becoming more severe and she is having bad back spasms as well. Her hydrocodone is not helping enough. Pain worsens with certain movements and with ambulation. Denies any recent injuries, falls or trauma to cause worsening pain. Denies any bladder or bowel incontinence, pelvic anesthesia or weakness to lower extremities. Vitals are stable. Patient appears nontoxic in no acute distress. Thoracic paraspinal muscle tenderness on the right side at around T8- T10. Rest of exam is benign. Patient was given dose of IM morphine and muscle relaxer. Symptoms improved and she was stable for discharge home. She was sent home with 2 tablets of Percocet to use for any acute pain later tonight. She is also sent her with a prescription for a muscle relaxer. Told to follow-up with Dr. Carias at pain management clinic at her next scheduled appointment. Return to ED precautions given. Patient understood and agreed with plan. Discharge Plan Discharge Patient Disposition: Home Clinical Impression: Back pain Qualifiers: Back pain location: back pain in unspecified location Chronicity: chronic Back pain laterality: midline Qualified Code(s): M54.9 - Dorsalgia, unspecified Condition: Stable Prescriptions: New cyclobenzaprine 5 mg tablet 5 mg PO BID PRN (Reason: muscle spasm) Qty: 20 0RF No Action clopidogrel [Plavix] 75 mg tablet 75 mg PO DAILY@2100 nitroglycerin [Nitrostat] 0.4 mg tablet, sublingual 0.4 mg SUBLINGUAL Q5M PRN (Reason: chest pains) Rx Instructions: do not exceed 3 doses per episode multivitamin Tablet 1 tab PO DAILY@1600 folic acid 400 mcg tablet 0.4 mg PO DAILY@1600 atorvastatin 40 mg tablet 40 mg PO DAILY@2100 aspirin [Adult Low Dose Aspirin] 81 mg tablet,delayed release (DR/EC) 81 mg PO DAILY@2100 alprazolam 0.5 mg tablet 1 mg PO BID PRN (Reason: Anxiety) bupivacaine (PF) 0.25 % (2.5 mg/mL) solution 1 ml Infiltration ONCE Qty: 1 0RF lidocaine (PF) 10 mg/mL (1 %) solution 1 ml Infiltration ONCE Qty: 1 0RF biotin 1,000 mcg tablet,chewable 1,000 mcg PO DAILY azelaic acid 15 % gel 1 applic topical BID Qty: 50 2RF Rx Instructions: Apply a pea sized amount to face twice daily calcium carbonate 500 mg calcium (1,250 mg) tablet 500 mg PO DAILY isosorbide mononitrate 120 mg tablet extended release 24 hr See Rx Instructions .ROUTE .COMPLEX Qty: 90 3RF Dose Instruction: TAKE 1 TABLET BY MOUTH DAILY AT 9 PM Rx Instructions: TAKE 1 TABLET BY MOUTH EVERY EVENING AT 9 PM potassium chloride 20 mEq tablet extended release 20 meq PO DAILY Qty: 30 5RF amlodipine 5 mg tablet See Rx Instructions .ROUTE .COMPLEX Qty: 90 3RF Dose Instruction: TAKE 1 TABLET BY MOUTH DAILY Rx Instructions: TAKE 1 TABLET BY MOUTH DAILY magnesium 500 mg Tablet 500 mg PO DAILY@1600 ascorbic acid (vitamin C) [Vitamin C] 500 mg Tablet 500 mg PO DAILY@1600 zinc 50 mg Capsule 50 mg PO DAILY@1600 cholecalciferol (vitamin D3) [Vitamin D3] 125 mcg (5,000 unit) Tablet 125 mcg PO DAILY@1600 metoprolol ta-hydrochlorothiaz 100-25 mg Tablet 1 tab PO DAILY methocarbamol 750 mg tablet 750 mg PO Q8H PRN (Reason: Back muscle spasms and pain) Qty: 15 0RF Discharge Orders: Discharge ED (Routine); Ordered 02/17/23 Ordered By: Shiraz Solomon Referrals: Kassie Toscano [Primary Care Provider] - Discharge Diet: Regular Discharge Activity: Increase activity as tolerated Activity Restrictions/Additional Instructions: Follow-up with medical provider at your next scheduled appointment. Take medications as prescribed. Return to the ER or your medical provider if condition worsens. Please read and understand discharge instructions. Thank you for choosing [facility] for your healthcare needs today. Please realize this is an emergency room and that we are providing you with a medical screening exam and this may not be complete and all inclusive of all the testing and or work up that you may need to determine your ailment or severity of your illness. It is very important that you follow up as instructed or that you return to the Emergency Department should you have concerns or if your condition changes or worsens in any way. Coding Level of Care Code ED Infection Control Specialist for Maulik Narvaez
[2023-02-17 20:29] VITALS: RESP 15
[2023-02-17] MEDS: orphenadrine 30 mg/mL Inj 2 mL 60 MG IM (20:29)
[2023-02-17] MEDS: morphine 4 mg/mL SDV 1 mL IM (20:29)
== END 2023-02-17 21:17 | disposition home or self-care (01) ==
PROVIDERS: Emergency Provider Physician Assistant; PCP Registered Nurse
DX: G89.29 Other chronic pain (principal); M54.9 Dorsalgia, unspecified; Z79.82 Long term (current) use of aspirin; Z79.02 Long term (current) use of antithrombotics/antiplatelets; Z87.891 Personal history of nicotine dependence; I25.10 Atherosclerotic heart disease of native coronary artery without angina pectoris; E11.9 Type 2 diabetes mellitus without complications; E78.5 Hyperlipidemia, unspecified; I10 Essential (primary) hypertension; Z95.0 Presence of cardiac pacemaker; Z85.12 Personal history of malignant neoplasm of trachea
CPT/HCPCS: 96372; 99284; J2270; J2360

== ENCOUNTER → 2023-02-22 09:47 | Outpatient (BNVA) | payer MEDICARE, OTHER, SELFPAY | PROVIDERS: PCP Registered Nurse; Visit Provider Anesthesiology Pain Medicine | DX: G89.29 Other chronic pain (principal); M50.30 Other cervical disc degeneration, unspecified cervical region; M47.812 Spondylosis without myelopathy or radiculopathy, cervical region; M43.12 Spondylolisthesis, cervical region; M47.814 Spondylosis without myelopathy or radiculopathy, thoracic region | CPT/HCPCS: 99214 ==

== ENCOUNTER → 2023-03-01 10:14 | Outpatient (BNVA) | payer MEDICARE, OTHER, SELFPAY | PROVIDERS: PCP Registered Nurse; Visit Provider Specialist | DX: I25.118 Atherosclerotic heart disease of native coronary artery with other forms of angina pectoris (principal); I10 Essential (primary) hypertension; Z95.0 Presence of cardiac pacemaker; E78.5 Hyperlipidemia, unspecified; Z87.891 Personal history of nicotine dependence; Z79.82 Long term (current) use of aspirin | CPT/HCPCS: 99214 ==

== ENCOUNTER 2023-03-07 10:45 | Emergency (ER) | payer MEDICARE, OTHER, SELFPAY ==
[2023-03-07 10:56] VITALS: BP 174/92; PULSE 103; RESP 18; TEMP 36.6; O2SAT 99
--- NOTE | 2023-03-07 11:28 | ED_ITS ---
HPI - Back Pain/Injury General: Chief Complaint: Back Pain/Injury Stated Complaint: back pain Time Seen by Provider: 03/07/23 11:12 History of Present Illness: 82-year-old female presents emergency department chief complaint of chronic back pain. Patient is scheduled for a nerve ablation of this next 1 week. Patient presents with her son as her pain is out of control the patient reports no numbness or tingling go down her legs or weight weakness she reports she is currently has her 10 units on she reports that she is on hydrocodone outpatient in which she is concerned that she may become addicted to it and which she has not been taking as prescribed. The patient reports no other associated symptoms. Associated symptoms: Deny abdominal pain, chills, fatigue, fever(s), nausea or vomiting Review of Systems General: Reports: 10 or more systems reviewed and unremarkable except in HPI and below Const: Denies: fever(s), chills, fatigue or malaise Eyes: Denies: change in vision or blurry vision Card: Denies: chest pain or palpitations Resp: Denies: dyspnea or productive cough GI: Denies: abdominal pain, nausea or vomiting : Denies: flank pain Musc: Reports: back pain; Denies: extremity pain or extremity swelling Skin/Breast: Denies: rash or pruritus Neuro: Denies: headache(s) Psych: Denies: anxiety or depression Raf/Lymph: Denies: easy bleeding All/Imm: Denies: urticaria, throat swelling or facial swelling PFSH ED PFSH: Medical History ASHD (arteriosclerotic heart disease) Bilateral carotid artery stenosis CAD (coronary artery disease) Carotid artery stenosis Chest pain Atypical chest pain likely MSK Diabetes Dyslipidemia Hypertension 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 Surgical History H/O cataract extraction History of PTCA Family History Mother CAD (coronary artery disease) Father CAD (coronary artery disease) Brother CAD (coronary artery disease) Sister CAD (coronary artery disease) Chronic kidney disease (CKD) Diabetes Hyperlipidemia Hypertension Stroke Denies family history of Clotting disorder Dementia Suicide Anesthesia complication Bleeding disorder Lung disease Cancer Social History (Reviewed 03/07/23 @ 11:33 by Simon Mi Smoking and tobacco status: former smoker Second hand smoke exposure: No Alcohol intake: never Substance/Drug Use: never Pets and animals: No Physical Exam Const: COMMON NORMALS: no acute distress, patient oriented x3 and healthy appearing HENMT: COMMON NORMALS: normocephalic and atraumatic HEAD & SCALP: normocephalic and atraumatic Eye: COMMON NORMALS: Equal, round and reactive pupils present and EOMs intact bilaterally PUPIL: Yes Equal, round and reactive pupils present Neck/C-Spine: COMMON NORMALS: full ROM, supple and no JVD Lymph: LYMPHATIC: no lymphadenopathy noted Chest: COMMONS NORMALS: normal inspection of the chest and normal palpation of entire chest wall Resp: COMMON NORMALS: normal respiratory effort, No retractions and clear to auscultation bilaterally EFFORT & INSPECTION: Yes able to speak in complete sentences and Yes symmetric chest movement AUSCULTATION: clear to auscultation bilaterally Cardio: COMMON NORMALS: no JVD, regular rate and regular rhythm RATE: regular rate RHYTHM: regular rhythm GI: COMMON NORMALS: Normal to inspection, nondistended, normoactive bowel sounds present, Soft to palpation and non-tender INSPECTION: Yes normal to inspection PALPATION: Yes Soft to palpation : COMMON NORMALS: Yes no CVA tenderness BLADDER/KIDNEY EXAM: Yes no CVA t enderness Back/Pelvis: COMMON NORMALS: no CVA tenderness OTHER: TENS unit in place. Moderate pain to palpation over the thoracic spine no obvious crepitus step-offs ecchymosis appreciated neurovascularly intact distally no foot drop or muscular weakness in either legs or subjective numbness noted per patient Extremity: COMMON NORMALS: normal to inspection and full ROM Neuro: COMMON NORMALS: patient oriented x3, CN's II-XII intact bilaterally, moves all extremities and no focal motor deficits Psych: COMMON NORMALS: mental status grossly normal, Normal thought process present, cooperative and normal affect THOUGHT PROCESS: Normal thought process present Skin: COMMON NORMALS: no rashes or lesions noted GENERAL SKIN EXAM: no rashes or lesions noted Course Vital Signs: Vital signs: Vital Signs Temperature 97.9 F 03/07/23 10:56 Pulse Rate 103 H 03/07/23 10:56 Respiratory Rate 18 03/07/23 10:56 Blood Pressure 174/92 03/07/23 10:56 Pulse Oximetry 99 03/07/23 10:56 Oxygen Delivery Me thod Room Air 03/07/23 10:56 MDM - Back Pain/Injury Medical Decision Making Due to the patient's symptoms condition will be provided the patient 1 dose of intramuscular morphine patient does not recall any recent trauma or injury that could be contributing to her back pain. She is already been under work-up by her doctor for upcoming surgery per patient's request will be providing her 1 dose of intramuscular morphine and provided her an additional prescription of hydrocodone limited until she can have her surgery. Advised the patient to continue medication as prescribed in which advised her to contact her doctor on Wednesday in which to return the interim if any of her symptoms persist or worse. Patient has had no additional injury or any other concerns we will forego any additional imaging at this time as it will not provide us any additional information. This patient's symptoms are consistent and chronic in nature. Discharge Plan Discharge Patient Disposition: Home Clinical Impression: Chronic low back pain, Acute exacerbation of chronic low back pain Condition: Stable Prescriptions: New hydrocodone-acetaminophen 5-325 mg tablet See Rx Instructions .ROUTE .COMPLEX Qty: 20 0RF Rx Instructions: 1-2 tabs every 6 hours as needed for severe pain. No Action clopidogrel [Plavix] 75 mg tablet 75 mg PO DAILY@2100 nitroglycerin [Nitrostat] 0.4 mg tablet, sublingual 0.4 mg SUBLINGUAL Q5M PRN (Reason: chest pains) Rx Instructions: do not exceed 3 doses per episode atorvastatin 40 mg tablet 40 mg PO DAILY@2100 aspirin [Adult Low Dose Aspirin] 81 mg tablet,delayed release (DR/EC) 81 mg PO DAILY@2100 alprazolam 0.5 mg tablet 1 mg PO BID PRN (Reason: Anxiety) bupivacaine (PF) 0.25 % (2.5 mg/mL) solution 1 ml Infiltration ONCE Qty: 1 0RF lidocaine (PF) 10 mg/mL (1 %) solution 1 ml Infiltration ONCE Qty: 1 0RF biotin 1,000 mcg tablet,chewable 1,000 mcg PO DAILY azelaic acid 15 % gel 1 applic topical BID Qty: 50 2RF Rx Instructions: Apply a pea sized amount to face twice daily isosorbide mononitrate 120 mg tablet extended release 24 hr See Rx Instructions .ROUTE .COMPLEX Qty: 90 3RF Dose Instruction: TAKE 1 TABLET BY MOUTH DAILY AT 9 PM Rx Instructions: TAKE 1 TABLET BY MOUTH EVERY EVENING AT 9 PM potassium chloride 20 mEq tablet extended release 20 meq PO DAILY Qty: 30 5RF amlodipine 5 mg tablet See Rx Instructions .ROUTE .COMPLEX Qty: 90 3RF Dose Instruction: TAKE 1 TABLET BY MOUTH DAILY Rx Instructions: TAKE 1 TABLET BY MOUTH DAILY magnesium 500 mg Tablet 500 mg PO DAILY@1600 ascorbic acid (vitamin C) [Vitamin C] 500 mg Tablet 500 mg PO DAILY@1600 cholecalciferol (vitamin D3) [Vitamin D3] 125 mcg (5,000 unit) Tablet 125 mcg PO DAILY@1600 metoprolol ta-hydrochlorothiaz 100-25 mg Tablet 1 tab PO DAILY cyclobenzaprine 5 mg tablet 5 mg PO BID PRN (Reason: muscle spasm) Qty: 20 0RF Discharge Orders: Discharge ED (Routine); Ordered 03/07/23 Ordered By: Simon Friedman Referrals: Kassie Toscano [Primary Care Provider] - 1-3 days Discharge Diet: Regular Discharge Activity: Increase activity as tolerated Patient Instructions: Chronic Back Pain (DC), Back Pain (ED), Opioid Safety, Pain Management Activity Restrictions/Additional Instructions: Please further follow-up with contact your doctor on Wednesday for further assessment management, take medication as prescribed you can additionally use things such as like [place] balm or lidocaine containing agents to the affected area to reduce additional pain and discomfort please return the interim if any of her symptoms persist or worse. Coding Level of Care Code ED Earth Science Professor for Maulik Narvaez
[2023-03-07 11:37] VITALS: RESP 18
[2023-03-07] MEDS: morphine 4 mg/mL SDV 1 mL IM (11:37)
[2023-03-07 11:42] VITALS: BP 137/88; PULSE 76; RESP 18; O2SAT 95
[2023-03-07 12:10] VITALS: BP 128/65; PULSE 82; RESP 18; O2SAT 94
== END 2023-03-07 12:04 | disposition home or self-care (01) ==
PROVIDERS: Emergency Provider Emergency Medicine; PCP Registered Nurse
DX: G89.29 Other chronic pain (principal); M54.50 Low back pain, unspecified; Z79.82 Long term (current) use of aspirin; Z79.02 Long term (current) use of antithrombotics/antiplatelets; Z87.891 Personal history of nicotine dependence; I25.10 Atherosclerotic heart disease of native coronary artery without angina pectoris; E11.9 Type 2 diabetes mellitus without complications; E78.5 Hyperlipidemia, unspecified; I10 Essential (primary) hypertension; Z95.0 Presence of cardiac pacemaker; Z85.12 Personal history of malignant neoplasm of trachea
CPT/HCPCS: 96372; 99284; J2270

== ENCOUNTER → 2023-03-09 12:46 | Outpatient (BNVA) | payer MEDICARE, OTHER, SELFPAY | PROVIDERS: PCP Registered Nurse; Visit Provider Anesthesiology Pain Medicine | DX: G89.29 Other chronic pain (principal); M47.814 Spondylosis without myelopathy or radiculopathy, thoracic region | CPT/HCPCS: 64633; 64634; J1030 ==

== ENCOUNTER 2023-03-09 14:38 | Emergency (ER) | payer MEDICARE, OTHER, SELFPAY ==
[2023-03-09 14:54] VITALS: BP 168/84; PULSE 95; RESP 18; TEMP 36.4; O2SAT 97; BMI 20.5
--- NOTE | 2023-03-09 15:21 | W.ED.BACK ---
HPI - Back Pain/Injury General: Chief Complaint: Back Pain/Injury Stated Complaint: back pain Time Seen by Provider: 03/09/23 15:15 Source: patient Mode of arrival: ambulatory Limitations: no limitations History of Present Illness: Patient is an 82-year-old female with a history of chronic back pain here with complaints of back pain. This seems to be patient's 6th visit for back pain between her pain management provider and the ED over the course of a month. Patient actually was seen by her highway painter helper Dr. Carias today and had a right T10/11, 09/19, 10/08 medial branch rhizotomy with radiofrequency treatment. She is here now complaining of continued pain and feeling like her back is spasming. MD elicited complaint: back pain Pertinent past history: prior back pain and back surgery (recent procedure by pain management ) Onset (ago): hour(s) Timing: constant Severity: severe Similar Symptoms Previously: Yes Quality: burning and spasming Location: thoracic spine Radiation: none Exacerbating factors: none Relieving factors: none Associated symptoms: Reports no associated symptoms; Deny abdominal pain, chills, dysuria, fatigue, fever(s), hematuria or syncope Work related injury: No Review of Systems Const: Denies: fever(s), chills, body aches, fatigue or malaise Card: Denies: chest pain, palpitations, irregular heart rhythm, edema, lightheadedness, syncope or pre-syncope Resp: Denies: dyspnea GI: Denies: abdominal pain : Denies: flank pain, dysuria or hematuria Musc: Reports: back pain; Denies: neck pain, extremity pain, extremity swelling, joint pain or joint swelling Skin/Breast: Denies: rash Neuro: Denies: headache(s), numbness in extremities, weakness in extremities, sensory changes or dizziness PFSH ED PFSH: Medical History ASHD (arteriosclerotic heart disease) Bilateral carotid artery stenosis CAD (coronary artery disease) Carotid artery stenosis Chest pain Atypical chest pain likely MSK Diabetes Dyslipidemia Hypertension 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 Surgical History H/O cataract extraction History of PTCA Family History Mother CAD (coronary artery disease) Father CAD (coronary artery disease) Brother CAD (coronary artery disease) Sister CAD (coronary artery disease) Chronic kidney disease (CKD) Diabetes Hyperlipidemia Hypertension Stroke Denies family history of Clotting disorder Dementia Suicide Anesthesia complication Bleeding disorder Lung disease Cancer Social History Smoking and tobacco status: former smoker Second hand smoke exposure: No Alcohol intake: never Substance/Drug Use: never Pets and animals: No Physical Exam Const: COMMON NORMALS: average body habitus, patient oriented x3, no limitations, healthy appearing, alert and well nourished GENERAL APPEARANCE: cooperative and in distress (appears intermittently uncomfortable when her back spasms) ORIENTATION/CONSCIOUSNESS: Yes awake, Yes oriented to person, Yes oriented to place and Yes oriented to time Neck/C-Spine: COMMON NORMALS: full ROM GENERAL: Yes normal visual inspection Chest: COMMONS NORMALS: normal inspection of the chest and normal palpation of entire chest wall Resp: COMMON NORMALS: normal respiratory effort and clear to auscultation bilaterally AUSCULTATION: clear to auscultation bilaterally Cardio: COMMON NORMALS: regular rate and regular rhythm RATE: regular rate RHYTHM: regular rhythm Back/Pelvis: THORACIC SPINE/UPPER BACK: Yes ROM limited, Yes thoracic spinal tenderness, Yes paraspinal muscle tenderness and Yes paraspinal muscle spasm LUMBAR SPINE/LOWER BACK: Yes normal to inspection, No lumbar spinal tenderness and No paraspinal muscle tenderness PELVIS: Yes buttocks normal SACROILIAC JOINTS: Yes SI joints normal SACRUM: no tenderness COCCYX: no tenderness OTHER: puncture site from recent procedure looks normal Extremity: COMMON NORMALS: normal to inspection and capillary refill normal GENERAL: Yes normal exam except as noted Neuro: COMMON NORMALS: patient oriented x3, moves all extremities, no focal motor deficits, no sensory deficits noted and gait normal SENSORIUM/ORIENTATION: Yes alert, Yes oriented to person, Yes oriented to place and Yes oriented to time MOTOR EXAM: 5/5 motor strength present throughout Course Vital Signs: Vital signs: Vital Signs Temperature 97.5 F L 03/09/23 14:54 Pulse Rate 95 03/09/23 14:54 Respiratory Rate 14 03/09/23 15:37 Blood Pressure 168/84 03/09/23 14:54 Pulse Oximetry 97 03/09/23 14:54 Oxygen Delivery Me thod Room Air 03/09/23 14:54 MDM - Back Pain/Injury Medical Decision Making Patient feels much better after IM morphine/norflex. I also placed her TENS unit onto her back and she states this feels better as well. States she feels comfortable following up with pain management as soon as possible for further evaluation and treatment. Discharge Plan Discharge Patient Disposition: Home Clinical Impression: Thoracic back pain Qualifiers: Chronicity: acute Back pain laterality: unspecified Qualified Code(s): M54.6 - Pain in thoracic spine Condition: Stable Prescriptions: No Action clopidogrel [Plavix] 75 mg tablet 75 mg PO DAILY@2100 nitroglycerin [Nitrostat] 0.4 mg tablet, sublingual 0.4 mg SUBLINGUAL Q5M PRN (Reason: chest pains) Rx Instructions: do not exceed 3 doses per episode atorvastatin 40 mg tablet 40 mg PO DAILY@2100 aspirin [Adult Low Dose Aspirin] 81 mg tablet,delayed release (DR/EC) 81 mg PO DAILY@2100 alprazolam 0.5 mg tablet 1 mg PO BID PRN (Reason: Anxiety) bupivacaine (PF) 0.25 % (2.5 mg/mL) solution 1 ml Infiltration ONCE Qty: 1 0RF lidocaine (PF) 10 mg/mL (1 %) solution 1 ml Infiltration ONCE Qty: 1 0RF biotin 1,000 mcg tablet,chewable 1,000 mcg PO DAILY azelaic acid 15 % gel 1 applic topical BID Qty: 50 2RF Rx Instructions: Apply a pea sized amount to face twice daily isosorbide mononitrate 120 mg tablet extended release 24 hr See Rx Instructions .ROUTE .COMPLEX Qty: 90 3RF Dose Instruction: TAKE 1 TABLET BY MOUTH DAILY AT 9 PM Rx Instructions: TAKE 1 TABLET BY MOUTH EVERY EVENING AT 9 PM potassium chloride 20 mEq tablet extended release 20 meq PO DAILY Qty: 30 5RF amlodipine 5 mg tablet See Rx Instructions .ROUTE .COMPLEX Qty: 90 3RF Dose Instruction: TAKE 1 TABLET BY MOUTH DAILY Rx Instructions: TAKE 1 TABLET BY MOUTH DAILY magnesium 500 mg Tablet 500 mg PO DAILY@1600 ascorbic acid (vitamin C) [Vitamin C] 500 mg Tablet 500 mg PO DAILY@1600 cholecalciferol (vitamin D3) [Vitamin D3] 125 mcg (5,000 unit) Tablet 125 mcg PO DAILY@1600 metoprolol ta-hydrochlorothiaz 100-25 mg Tablet 1 tab PO DAILY cyclobenzaprine 5 mg tablet 5 mg PO BID PRN (Reason: muscle spasm) Qty: 20 0RF hydrocodone-acetaminophen 5-325 mg tablet See Rx Instructions .ROUTE .COMPLEX Qty: 20 0RF Rx Instructions: 1-2 tabs every 6 hours as needed for severe pain. Discharge Orders: Discharge ED (Routine); Ordered 03/09/23 Ordered By: Elsie Alvarenga Referrals: Kassie Toscano [Primary Care Provider] - Activity Restrictions/Additional Instructions: PLEASE FOLLOW UP WITH YOUR PAIN MANAGEMENT PROVIDER SOON POSSIBLE FOR FURTHER TREATMENT OF YOUR BACK PAIN. Coding Level of Care Code ED Client Delivery Specialist for Maulik Narvaez
[2023-03-09 15:37] VITALS: RESP 14
[2023-03-09] MEDS: orphenadrine 30 mg/mL Inj 2 mL 60 MG IM (15:37)
[2023-03-09] MEDS: morphine 4 mg/mL SDV 1 mL IM (15:37)
== END 2023-03-09 16:13 | disposition home or self-care (01) ==
PROVIDERS: Emergency Provider Physician Assistant; PCP Registered Nurse
DX: M54.6 Pain in thoracic spine (principal); Z79.82 Long term (current) use of aspirin; Z79.02 Long term (current) use of antithrombotics/antiplatelets; Z87.891 Personal history of nicotine dependence; I25.10 Atherosclerotic heart disease of native coronary artery without angina pectoris; E11.9 Type 2 diabetes mellitus without complications; E78.5 Hyperlipidemia, unspecified; I10 Essential (primary) hypertension; Z95.0 Presence of cardiac pacemaker; Z85.12 Personal history of malignant neoplasm of trachea
CPT/HCPCS: 64633; 64634; 93288; 96372; 99284; J1030; J2270; J2360

== ENCOUNTER 2023-03-15 09:07 | Emergency (ER) | payer MEDICARE, OTHER, SELFPAY ==
[2023-03-15 09:12] VITALS: BP 121/67; PULSE 77; RESP 16; TEMP 36.9; O2SAT 94; BMI 21.2
--- NOTE | 2023-03-15 09:18 | ED_ITS ---
HPI - Back Pain/Injury General: Chief Complaint: Back Pain/Injury Stated Complaint: BACK PAIN Time Seen by Provider: 03/15/23 09:08 Source: patient and EMS Mode of arrival: EMS Limitations: no limitations History of Present Illness: Patient is an 82-year-old female who presents to the ED today yet again for thoracic back pains. Patient states she has a longstanding history of thoracic back pain. She states her back pain is being treated/managed by Dr. Carias pain management. Patient states she has underwent nerve ablations over the past month or so. This will make patient's 7th medical visit in less than a month between the emergency department and pain management for treatment of her thoracic back pain. She doesn't believe she is on any prescription medications for pain or muscle spasms stating in the past she has had unwanted side effects with these. I personally saw patient approximately 6 days ago for thoracic back pain. She states following discharge she felt improved and over the past few days has felt better but woke up this morning with severe pain and spasming. Patient was given Valium, Morphine, and Zofran in route and upon arrival and during the time of my initial examination does tell me she feels better. MD elicited complaint: back pain Pertinent past history: prior back pain Onset (ago): month(s) Timing: constant Severity: severe Similar Symptoms Previously: Yes Quality: spasming Location: thoracic spine Radiation: none Exacerbating factors: movement Associated symptoms: Reports no associated symptoms; Deny abdominal pain, chills, dysuria, fatigue, fever(s) or hematuria Work related injury: No Review of Systems Const: Denies: fever(s), chills, body aches, fatigue or malaise Card: Denies: chest pain Resp: Denies: dyspnea GI: Denies: abdominal pain : Denies: flank pain, dysuria or hematuria Musc: Reports: back pain; Denies: neck pain, extremity pain, extremity swelling, joint pain, joint redness or joint warmth Skin/Breast: Denies: rash Neuro: Denies: headache(s), numbness in extremities, weakness in extremities or sensory changes [facility] ED PFSH: Medical History ASHD (arteriosclerotic heart disease) Bilateral carotid artery stenosis CAD (coronary artery disease) Carotid artery stenosis Chest pain Atypical chest pain likely MSK Diabetes Dyslipidemia Hypertension 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 Surgical History H/O cataract extraction History of PTCA Family History Mother CAD (coronary artery disease) Father CAD (coronary artery disease) Brother CAD (coronary artery disease) Sister CAD (coronary artery disease) Chronic kidney disease (CKD) Diabetes Hyperlipidemia Hypertension Stroke Denies family history of Clotting disorder Dementia Suicide Anesthesia complication Bleeding disorder Lung disease Cancer Social History Smoking and tobacco status: former smoker Second hand smoke exposure: No Alcohol intake: never Substance/Drug Use: never Pets and animals: No Physical Exam Const: COMMON NORMALS: no acute distress, average body habitus, patient oriented x3, no limitations, healthy appearing, alert and well nourished ORIENTATION/CONSCIOUSNESS: Yes awake, Yes oriented to person, Yes oriented to place and Yes oriented to time Neck/C-Spine: COMMON NORMALS: full ROM, no lymphadenopathy and no JVD Chest: COMMONS NORMALS: normal inspection of the chest and normal palpation of entire chest wall Resp: COMMON NORMALS: normal respiratory effort and clear to auscultation bilaterally AUSCULTATION: clear to auscultation bilaterally Cardio: COMMON NORMALS: no JVD GI: COMMON NORMALS: Normal to inspection, nondistended, normoactive bowel sounds present, Soft to palpation, non-tender, No hepatosplenomegaly present and no masses PALPATION: Yes Soft to palpation and Yes No hepatosplenomegaly pre sent : COMMON NORMALS: Yes no CVA tenderness BLADDER/KIDNEY EXAM: Yes no CVA tenderness Back/Pelvis: COMMON NORMALS: no CVA tenderness THORACIC SPINE/UPPER BACK: Yes normal to inspection (TENS unit on), Yes ROM limited, Yes pain with ROM, Yes thoracic spinal tenderness, Yes paraspinal muscle tenderness, No paraspinal muscle spasm and No mass present LUMBAR SPINE/LOWER BACK: No lumbar spinal tenderness, No paraspinal muscle tenderness, No paraspinal muscle spasm and Yes straight leg raise negative bilaterally PELVIS: Yes buttocks normal and No sciatic notch tenderness SACROILIAC JOINTS: No SI joint(s) abnormal SACRUM: no tenderness COCCYX: no tenderness Extremity: COMMON NORMALS: normal to inspection and full ROM GENERAL: Yes normal exam except as noted Neuro: COMMON NORMALS: patient oriented x3, moves all extremities, no focal motor deficits and no sensory deficits noted SENSORIUM/ORIENTATION: Yes alert, Yes oriented to person, Yes oriented to place and Yes oriented to time Skin: COMMON NORMALS: no rashes or lesions noted GENERAL SKIN EXAM: no rashes or lesions noted Course Vital Signs: Vital signs: Vital Signs Temperature 98.4 F 03/15/23 09:12 Pulse Rate 77 03/15/23 09:12 Respiratory Rate 16 03/15/23 09:12 Blood Pressure 121/67 03/15/23 09:12 Pulse Oximetry 94 03/15/23 09:12 Oxygen Delivery Me thod Room Air 03/15/23 09:12 MDM - Back Pain/Injury Medical Decision Making I spoke to our upper caser to kindly call patient's pain management provider to see if we can get her an appointment as this is patient's fourth ED visit in less than a month for her back pain. They were able to get her an appointment tomorrow at 9 AM. Hopefully this will allow patient to make less frequent ED visits. I went ahead and checked a urine due to back pain- overall appears fairly benign. She is negative for nitrates/leuks. She did have 5-10 WBCs. We will go ahead and run a culture. I was told I could not give her any pain meds to go home with and a prescription needs to be written for these so she will be provided a prescription to last her for the next 1-2 days. Labs Laboratory Results Urine Color Yellow (Yellow) 03/15/23 09:56 Urine Appearance Clear (CLEAR) 03/15/23 09:56 Urine pH 7 (5-7) 03/15/23 09:56 Ur Specific [place] 1.020 (1.005-1.030) 03/15/23 09:56 Urine Protein Neg (Negative) 03/15/23 09:56 Urine Glucose (UA) Norm (Normal) 03/15/23 09:56 Urine Ketones Negative (Negative) 03/15/23 09:56 Urine Blood Trace (Negative) H 03/15/23 09:56 Urine Nitrate Negative (Negative) 03/15/23 09:56 Urine Bilirubin Neg (Negative) 03/15/23 09:56 Urine Urobilinogen Norm mg/dL (Negative) 03/15/23 09:56 Ur Leukocyte Esterase Negative (Negative) 03/15/23 09:56 Urine RBC 0-4 /hpf (0-2) H 03/15/23 09:56 Urine WBC 5-10 /hpf (0-5) H 03/15/23 09:56 Ur Squamous Epith Cells 0-4 /hpf (0-5) H 03/15/23 09:56 Amorphous Sediment Not Reportable 03/15/23 09:56 Urine Bacteria 1+ /hpf (NONE) H 03/15/23 09:56 Urine Mucus 1+ /hpf 03/15/23 09:56 Discharge Plan Discharge Patient Disposition: Home Clinical Impression: Thoracic back pain Qualifiers: Chronicity: chronic Back pain laterality: bilateral Qualified Code(s): M54.6 - Pain in thoracic spine Condition: Stable Prescriptions: New hydrocodone-acetaminophen 5-325 mg tablet 1 tab PO Q6H PRN (Reason: pain) Qty: 5 0RF methocarbamol 500 mg tablet 500 mg PO Q8H Qty: 7 0RF Discontinued cyclobenzaprine 5 mg tablet 5 mg PO BID PRN (Reason: muscle spasm) Qty: 20 0RF hydrocodone-acetaminophen 5-325 mg tablet See Rx Instructions .ROUTE .COMPLEX Qty: 20 0RF Rx Instructions: 1-2 tabs every 6 hours as needed for severe pain. No Action clopidogrel [Plavix] 75 mg tablet 75 mg PO DAILY@2100 nitroglycerin [Nitrostat] 0.4 mg tablet, sublingual 0.4 mg SUBLINGUAL Q5M PRN (Reason: chest pains) Rx Instructions: do not exceed 3 doses per episode atorvastatin 40 mg tablet 40 mg PO DAILY@2100 aspirin [Adult Low Dose Aspirin] 81 mg tablet,delayed release (DR/EC) 81 mg PO DAILY@2100 alprazolam 0.5 mg tablet 1 mg PO BID PRN (Reason: Anxiety) bupivacaine (PF) 0.25 % (2.5 mg/mL) solution 1 ml Infiltration ONCE Qty: 1 0RF lidocaine (PF) 10 mg/mL (1 %) solution 1 ml Infiltration ONCE Qty: 1 0RF biotin 1,000 mcg tablet,chewable 1,000 mcg PO DAILY azelaic acid 15 % gel 1 applic topical BID Qty: 50 2RF Rx Instructions: Apply a pea sized amount to face twice daily isosorbide mononitrate 120 mg tablet extended release 24 hr See Rx Instructions .ROUTE .COMPLEX Qty: 90 3RF Dose Instruction: TAKE 1 TABLET BY MOUTH DAILY AT 9 PM Rx Instructions: TAKE 1 TABLET BY MOUTH EVERY EVENING AT 9 PM potassium chloride 20 mEq tablet extended release 20 meq PO DAILY Qty: 30 5RF amlodipine 5 mg tablet See Rx Instructions .ROUTE .COMPLEX Qty: 90 3RF Dose Instruction: TAKE 1 TABLET BY MOUTH DAILY Rx Instructions: TAKE 1 TABLET BY MOUTH DAILY magnesium 500 mg Tablet 500 mg PO DAILY@1600 ascorbic acid (vitamin C) [Vitamin C] 500 mg Tablet 500 mg PO DAILY@1600 cholecalciferol (vitamin D3) [Vitamin D3] 125 mcg (5,000 unit) Tablet 125 mcg PO DAILY@1600 metoprolol ta-hydrochlorothiaz 100-25 mg Tablet 1 tab PO DAILY Discharge Orders: Discharge ED (Routine); Ordered 03/15/23 Ordered By: Elsie Alvarenga Referrals: Kassie Toscano [Primary Care Provider] - Mane Carias MD [Physician] - Activity Restrictions/Additional Instructions: YOU HAVE AN APPOINTMENT WITH DR. CARIAS TOMORROW AT 9:00AM FOR EVALUATION/TREATMENT OF YOUR CHRONIC BACK PAIN. You have been given prescriptions for hydrocodone and methocarbamol (only enough for the next 1-2 days). Again make sure you make your appointment tomorrow to see your parking line painter. Coding Level of Care Code ED Global Transportation Manager for Maulik Narvaez
--- NOTE | 2023-03-15 09:40 | DCPLANNER ---
Addendum entered by Domitila Arroyo 03/23/23 14:34: Patient had a followup appointment scheduled with pain management - patient did attend appointment. Original Note: manager star was asked to call [facility] pain management to if patient could be seen in the clinic this week. manager star spoke with physicians nurse, a follow up appointment was scheduled for Thursday, March 16, 2023 at 9:[address] Carias. manager star informed ER physician that the appointment was scheduled.
[2023-03-15 10:17] LABS: Add Urine Microscopic? YES; Bilirubin Urine Neg (Negative); Blood Urine Trace (Negative); Glucose Urine UA Norm (Normal); Ketones Urine Negative (Negative); Leukocyte Esterase Urine Negative (Negative); Nitrate Urine Negative (Negative); Protein Urine Neg (Negative); RBC Urine 0-4 /hpf (0-2); Squamous Epithelial Cell Urine 0-4 /hpf (0-5); Urine Appearance Clear (CLEAR); Urine Color Yellow (Yellow); Urobilinogen Urine Norm (Negative); pH Urine 7 (5-7)
[2023-03-15 10:18] LABS: Add Urine Culture? No; Bacteria Urine 1+ /hpf; Mucus Urine 1+ /hpf
== END 2023-03-15 12:09 | disposition home or self-care (01) ==
PROVIDERS: Emergency Provider Physician Assistant; PCP Registered Nurse
DX: M54.6 Pain in thoracic spine (principal); Z79.82 Long term (current) use of aspirin; Z79.02 Long term (current) use of antithrombotics/antiplatelets; Z87.891 Personal history of nicotine dependence; I25.10 Atherosclerotic heart disease of native coronary artery without angina pectoris; E11.9 Type 2 diabetes mellitus without complications; E78.5 Hyperlipidemia, unspecified; I10 Essential (primary) hypertension; Z95.0 Presence of cardiac pacemaker; Z85.12 Personal history of malignant neoplasm of trachea
CPT/HCPCS: 81001; 99283

== ENCOUNTER → 2023-03-16 08:57 | Outpatient (BNVA) | payer MEDICARE, OTHER, SELFPAY | PROVIDERS: PCP Registered Nurse; Visit Provider Anesthesiology Pain Medicine | DX: G89.29 Other chronic pain (principal); M47.814 Spondylosis without myelopathy or radiculopathy, thoracic region; M47.812 Spondylosis without myelopathy or radiculopathy, cervical region; M50.30 Other cervical disc degeneration, unspecified cervical region; M43.12 Spondylolisthesis, cervical region | CPT/HCPCS: 72074; 99214 ==

== ENCOUNTER 2023-03-25 08:38 | Emergency (ER) | payer MEDICARE, OTHER, SELFPAY ==
[2023-03-25 08:38] VITALS: BP 129/56; PULSE 86; RESP 16; TEMP 36.8; O2SAT 98; BMI 21.2
--- NOTE | 2023-03-25 08:54 | W.ED.BACK ---
HPI - Back Pain/Injury General: Chief Complaint: Back Pain/Injury Stated Complaint: BACK PAIN Time Seen by Provider: 03/25/23 08:40 History of Present Illness: Patient is a 82-year-old female that comes to the ED via EMS with chronic back pain. EMS gave patient 4 mg of morphine and Zofran while in route and her symptoms have resolved. Here in the ED her back pain is completely resolved. Patient says that she has been dealing with chronic back pain and sees Dr. Carias. She had an ablation done on her back and has 1 scheduled to be done this coming Wednesday. She is having episodes of muscle spasm type pain in her mid back. Denies any new injury, fall or trauma. Denies any cauda equina symptoms. Patient has hydrocodone and Robaxin that she takes for her back pain and muscle spasms. Denies any UTI symptoms. Associated symptoms: Deny abdominal pain, chills, dysuria, fatigue, fever(s), hematuria, nausea or vomiting Review of Systems Const: Denies: fever(s), chills or fatigue Eyes: Denies: change in vision or eye discomfort ENMT: Denies: throat pain, odynophagia, nasal discharge or nasal congestion Card: Denies: chest pain, palpitations, edema, swelling of feet/ankles, dyspnea on exertion or orthopnea Resp: Denies: dyspnea, productive cough or non-productive cough GI: Denies: abdominal pain, nausea, vomiting, diarrhea, constipation or hematochezia : Denies: flank pain, dysuria or hematuria Musc: Reports: back pain; Denies: neck pain or extremity swelling Skin/Breast: Denies: rash or new lesions Neuro: Denies: headache(s), numbness in extremities or weakness in extremities PFS ED PFSH: Medical History ASHD (arteriosclerotic heart disease) Bilateral carotid artery stenosis CAD (coronary artery disease) Carotid artery stenosis Chest pain Atypical chest pain likely MSK Diabetes Dyslipidemia Hypertension 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 Surgical History H/O cataract extraction History of PTCA Family History Mother CAD (coronary artery disease) Father CAD (coronary artery disease) Brother CAD (coronary artery disease) Sister CAD (coronary artery disease) Chronic kidney disease (CKD) Diabetes Hyperlipidemia Hypertension Stroke Denies family history of Clotting disorder Dementia Suicide Anesthesia complication Bleeding disorder Lung disease Cancer Social History Smoking and tobacco status: former smoker Second hand smoke exposure: No Alcohol intake: never Substance/Drug Use: never Pets and animals: No Physical Exam Const: COMMON NORMALS: patient oriented x3 HENMT: COMMON NORMALS: normocephalic HEAD & SCALP: normocephalic MOUTH: Normal oral and palatal mucosa present THROAT: posterior oropharynx normal and uvula midline Neck/C-Spine: COMMON NORMALS: supple GENERAL: Yes normal visual inspection Resp: COMMON NORMALS: normal respiratory effort, No retractions, No use of accessory muscles and clear to auscultation bilaterally AUSCULTATION: clear to auscultation bilaterally Cardio: COMMON NORMALS: regular rate, regular rhythm, S1 normal heart sound present, S2 normal heart sound present, No gallops present (Cardio), No clicks present (Cardio), No murmurs present (Cardio) and Peripheral pulses 2+ throughout RATE: regular rate RHYTHM: regular rhythm HEART SOUNDS: S1 normal heart sound present and S2 normal heart sound present PERIPHERAL PULSES: Peripheral pulses 2+ throughout GI: COMMON NORMALS: Normal to inspection, nondistended, normoactive bowel sounds present, Soft to palpation, non-tender and no masses PALPATION: Yes Soft to palpation : COMMON NORMALS: Yes no CVA tenderness BLADDER/KIDNEY EXAM: Yes no CVA tenderness Back/Pelvis: COMMON NORMALS: no CVA tenderness THORACIC SPINE/UPPER BACK: Yes normal to inspection, Yes thoracic ROM normal, No thoracic spinal tenderness and Yes paraspinal muscle tenderness Thoracic paraspinal muscle tenderness: bilateral Extremity: COMMON NORMALS: normal to inspection Neuro: COMMON NORMALS: patient oriented x3 GAIT: Yes Normal gait present Skin: GENERAL SKIN EXAM: dry skin Course Vital Signs: Vital signs: Vital Signs Temperature 98.3 F 03/25/23 08:38 Pulse Rate 85 03/25/23 09:14 Respiratory Rate 18 03/25/23 09:14 Blood Pressure 129/56 03/25/23 09:14 Pulse Oximetry 95 03/25/23 09:14 Oxygen Delivery Me thod Room Air 03/25/23 08:59 MDM - Back Pain/Injury Medical Decision Making Patient is a 82-year-old female that comes to the ED via EMS with chronic back pain. EMS gave patient 4 mg of morphine and Zofran while in route and her symptoms have resolved. Here in the ED her back pain is completely resolved. Patient says that she has been dealing with chronic back pain and sees Dr. Carias. She had an ablation done on her back and has 1 scheduled to be done this coming Wednesday. She is having episodes of muscle spasm type pain in her mid back. Denies any new injury, fall or trauma. Denies any cauda equina symptoms. Patient has hydrocodone and Robaxin that she takes for her back pain and muscle spasms. Denies any UTI symptoms. Vitals are stable. Patient has some bilateral paraspinal muscle tenderness of the thoracic spine but rest of exam is benign. She appears nontoxic in no acute distress or pain. Her back pain is completely resolved since she received some morphine via EMS while in route. She was stable for discharge home and diagnosed with chronic back pain and told to contact pain management clinic Dr. Carias for further evaluation. Strict return to ED precautions given. Patient understood and agreed with plan. Discharge Plan Discharge Patient Disposition: Home Clinical Impression: Chronic back pain Qualifiers: Back pain location: thoracic back pain Back pain laterality: unspecified Qualified Code(s): M54.6 - Pain in thoracic spine Condition: Stable Prescriptions: No Action clopidogrel [Plavix] 75 mg tablet 75 mg PO DAILY@2100 nitroglycerin [Nitrostat] 0.4 mg tablet, sublingual 0.4 mg SUBLINGUAL Q5M PRN (Reason: chest pains) Rx Instructions: do not exceed 3 doses per episode atorvastatin 40 mg tablet 40 mg PO DAILY@2100 aspirin [Adult Low Dose Aspirin] 81 mg tablet,delayed release (DR/EC) 81 mg PO DAILY@2100 alprazolam 0.5 mg tablet 1 mg PO BID PRN (Reason: Anxiety) bupivacaine (PF) 0.25 % (2.5 mg/mL) solution 1 ml Infiltration ONCE Qty: 1 0RF lidocaine (PF) 10 mg/mL (1 %) solution 1 ml Infiltration ONCE Qty: 1 0RF hydrocodone-acetaminophen 5-325 mg tablet 1 tab PO BID PRN (Reason: pain) 7 Days Qty: 14 0RF methocarbamol 500 mg tablet 500 mg PO Q8H Qty: 30 0RF biotin 1,000 mcg tablet,chewable 1,000 mcg PO DAILY azelaic acid 15 % gel 1 applic topical BID Qty: 50 2RF Rx Instructions: Apply a pea sized amount to face twice daily isosorbide mononitrate 120 mg tablet extended release 24 hr See Rx Instructions .ROUTE .COMPLEX Qty: 90 3RF Dose Instruction: TAKE 1 TABLET BY MOUTH DAILY AT 9 PM Rx Instructions: TAKE 1 TABLET BY MOUTH EVERY EVENING AT 9 PM potassium chloride 20 mEq tablet extended release 20 meq PO DAILY Qty: 30 5RF amlodipine 5 mg tablet See Rx Instructions .ROUTE .COMPLEX Qty: 90 3RF Dose Instruction: TAKE 1 TABLET BY MOUTH DAILY Rx Instructions: TAKE 1 TABLET BY MOUTH DAILY magnesium 500 mg Tablet 500 mg PO DAILY@1600 ascorbic acid (vitamin C) [Vitamin C] 500 mg Tablet 500 mg PO DAILY@1600 cholecalciferol (vitamin D3) [Vitamin D3] 125 mcg (5,000 unit) Tablet 125 mcg PO DAILY@1600 metoprolol ta-hydrochlorothiaz 100-25 mg Tablet 1 tab PO DAILY Discharge Orders: Discharge ED (Routine); Ordered 03/25/23 Ordered By: Shiraz Solomon Referrals: Kassie Toscano [Primary Care Provider] - Discharge Diet: Regular Discharge Activity: Increase activity as tolerated Patient Instructions: Chronic Back Pain (DC), Pain Management Activity Restrictions/Additional Instructions: Call pain management clinic today to try to schedule an earlier follow-up appointment. Continue taking all home medications as previously prescribed. Return to the ER or your medical provider if condition worsens. Please read and understand discharge instructions. Thank you for choosing [facility] for your healthcare needs today. Please realize this is an emergency room and that we are providing you with a medical screening exam and this may not be complete and all inclusive of all the testing and or work up that you may need to determine your ailment or severity of your illness. It is very important that you follow up as instructed or that you return to the Emergency Department should you have concerns or if your condition changes or worsens in any way. Coding Level of Care Code ED Telegraph Repeater Mechanic for Maulik Narvaez
[2023-03-25 08:59] VITALS: BP 129/56; PULSE 86; RESP 16; O2SAT 98
[2023-03-25 09:14] VITALS: BP 129/56; PULSE 85; RESP 18; O2SAT 95
== END 2023-03-25 09:15 | disposition home or self-care (01) ==
PROVIDERS: Emergency Provider Physician Assistant; PCP Registered Nurse
DX: G89.29 Other chronic pain (principal); M54.6 Pain in thoracic spine; Z79.82 Long term (current) use of aspirin; Z79.02 Long term (current) use of antithrombotics/antiplatelets; Z87.891 Personal history of nicotine dependence; I25.10 Atherosclerotic heart disease of native coronary artery without angina pectoris; E11.9 Type 2 diabetes mellitus without complications; E78.5 Hyperlipidemia, unspecified; I10 Essential (primary) hypertension; Z95.0 Presence of cardiac pacemaker; Z85.12 Personal history of malignant neoplasm of trachea
CPT/HCPCS: 99283

== ENCOUNTER → 2023-03-30 12:36 | Outpatient (BNVA) | payer MEDICARE, OTHER, SELFPAY | PROVIDERS: PCP Registered Nurse; Visit Provider Anesthesiology Pain Medicine | DX: G89.29 Other chronic pain (principal); M47.814 Spondylosis without myelopathy or radiculopathy, thoracic region | CPT/HCPCS: 64633; 64634; J1030 ==

== ENCOUNTER → 2023-04-13 08:57 | Outpatient (BNVA) | payer MEDICARE, OTHER, SELFPAY | PROVIDERS: PCP Registered Nurse; Visit Provider Anesthesiology Pain Medicine | DX: G89.29 Other chronic pain (principal); M50.30 Other cervical disc degeneration, unspecified cervical region; M47.812 Spondylosis without myelopathy or radiculopathy, cervical region; M43.12 Spondylolisthesis, cervical region; M47.814 Spondylosis without myelopathy or radiculopathy, thoracic region | CPT/HCPCS: 99214 ==

== ENCOUNTER 2023-04-15 06:41 | Emergency (ER) | payer MEDICARE, OTHER, SELFPAY ==
[2023-04-15 06:42] VITALS: BMI 21.6
[2023-04-15 06:46] VITALS: BP 179/51; PULSE 94; RESP 16; TEMP 36.7; O2SAT 98
--- NOTE | 2023-04-15 06:47 | ED_ITS ---
HPI - General Adult General: Chief complaint: Vaginal Bleeding Stated complaint: VAG BLEEDING Time Seen by Provider: 04/15/23 06:47 Source: patient Mode of arrival: EMS History of Present Illness: 82 yo female presents emergency room with complaints of vaginal bleeding began around 5:00 this morning she states she has had bright red blood in the toilet after urination 3 to episodes this morning. She is on Plavix. When she in itially arrived she stated she was having vaginal bleeding. She denies any fever sweats chills no flank pain no dysuria urgency. No history of any gynecologic issues in the past. She does have a history of coronary disease and she is on Plavix. Previously had stenting done several years ago. Onset (ago): hour(s) Relieving factors: none Exacerbating factors: none Associated symptoms: Deny chest pain, confusion, cough, diaphoresis, decreased appetite, dyspnea, fevers/chills, headache(s), malaise, nausea, rash, palpitations, seizures, short of breath, syncope, vomiting or weakness Review of Systems Const: Denies: fever(s), chills, fatigue, malaise or diaphoresis ENMT: Denies: throat pain, ear or mastoid pain, nasal discharge or nasal congestion Card: Denies: chest pain, palpitations or syncope Resp: Denies: dyspnea GI: Denies: abdominal pain, nausea or vomiting : Reports: urinary frequency and hematuria; Denies: flank pain, difficulty voiding, dysuria or urinary urgency Skin/Breast: Denies: rash Neuro: Denies: headache(s) or confusion PFS ED PFSH: Medical History ASHD (arteriosclerotic heart disease) Bilateral carotid artery stenosis CAD (coronary artery disease) Carotid artery stenosis Chest pain Atypical chest pain likely MSK Diabetes Dyslipidemia Hypertension 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 Surgical History H/O cataract extraction History of PTCA Family History Mother CAD (coronary artery disease) Father CAD (coronary artery disease) Brother CAD (coronary artery disease) Sister CAD (coronary artery disease) Chronic kidney disease (CKD) Diabetes Hyperlipidemia Hypertension Stroke Denies family history of Clotting disorder Dementia Suicide Anesthesia complication Bleeding disorder Lung disease Cancer Social History Smoking and tobacco status: former smoker Second hand smoke exposure: No Alcohol intake: never Substance/Drug Use: never Pets and animals: No Physical Exam Const: GENERAL APPEARANCE: cooperative and comfortable ORIENTATION/CONSCIOUSNESS: Yes awake, Yes oriented to person, Yes oriented to place and Yes oriented to time HENMT: COMMON NORMALS: normocephalic, atraumatic and hearing grossly normal bilaterally HEAD & SCALP: normocephalic and atraumatic Resp: COMMON NORMALS: normal respiratory effort, No retractions, No use of accessory muscles and clear to auscultation bilaterally AUSCULTATION: clear to auscultation bilaterally Cardio: COMMON NORMALS: regular rate, regular rhythm and No murmurs present (Cardio) RATE: regular rate RHYTHM: regular rhythm GI: COMMON NORMALS: Soft to palpation and No hepatosplenomegaly present AUSCULTATION: Yes normoactive bowel sounds PALPATION: Yes Soft to palpation, No Tenderness to palpation present (GI), No Guarding due to palpation present (GI) and Yes No hepatosplenomegaly present Extremity: COMMON NORMALS: normal to inspection, capillary refill normal, no clubbing, cyanosis or edema, no calf tenderness and no pedal edema Neuro: SENSORIUM/ORIENTATION: Yes oriented to person, Yes oriented to place and Yes oriented to time Skin: COMMON NORMALS: no rashes or lesions noted GENERAL SKIN EXAM: no rashes or lesions noted Course Vital Signs: Vital signs: Vital Signs Temperature 98.1 F 04/15/23 06:46 Pulse Rate 94 04/15/23 06:46 Respiratory Rate 14 04/15/23 09:19 Blood Pressure 179/51 04/15/23 06:46 Pulse Oximetry 97 04/15/23 09:19 Oxygen Delivery Me thod Room Air 04/15/23 06:46 [facility] - General Adult Medical Decision Making Hematuria is significant with amanda gross hematuria on cath. No vaginal or rectal bleeding at this time. Patient does admit to previously having episodes of rectal bleeding. CT with renal stone protocol showed no renal stones no kidney or ureter masses. There is thickening of the gallbladder wall but no apparent masses incidental finding of right hepatic flexures thickening of the wall stricture and localized lymph nodes. Patient tells me she previously had some hematuria was thought to be hemorrhoids. She declined to have colonoscopy done after discussing with Dr. Neville. Encouraged her to follow-up with Dr. Neville and reconsider colonoscopy. I did call Dr. Neville and inform of the CT findings. Case management make arrangements for urology to see the patient. Medical Records I reviewed the patient's medical records. Lab Data I reviewed the patient's lab results. 04/15/23 07:05 04/15/23 07:05 Radiology Impressions Abdomen/Pelvis CT 04/15/23 07:01 IMPRESSION: 1. No hydronephrosis. No obstructing renal or ureteral calculi. 2. Diffuse bladder wall thickening. Bladder is relatively decompressed. Recommend further evaluation with cystoscopy considering hematuria. 3. 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 Surrounding induration and inflammatory changes with surrounding lymph nodes. Colitis is an additional less likely consideration. Rec ommend further evaluation with colonoscopy. 4. Distention with fecal retention in the RIGHT colon and. 5. Similar-appearing hepatic hemangiomas. 6. Small esophageal hiatal hernia. Laboratory Results WBC 10.8 10^3/uL (4.0-10.0) H 04/15/23 07:05 RBC 3.97 10^6/uL (4.1-5.3) L 04/15/23 07:05 Hgb 9.8 g/dL (11.5-15.3) L 04/15/23 07:05 Hct 34.4 % (37.0-47.0) L 04/15/23 07:05 MCV 86.6 fl (81-99) 04/15/23 07:05 MCH 24.7 pg (28.0-34.0) L 04/15/23 07:05 MCHC 28.5 g/dL (30.0-36.0) L 04/15/23 07:05 RDW 21.1 % (12.1-15.1) H 04/15/23 07:05 Plt Count 260 10^3/cmm (130-400) 04/15/23 07:05 MPV 8.4 fL (7.4-10.4) 04/15/23 07:05 Neut % (Auto) 85.0 % 04/15/23 07:05 Lymph % (Auto) 8.2 % 04/15/23 07:05 [place] % (Auto) 5.7 % 04/15/23 07:05 Eos % (Auto) 0.3 % 04/15/23 07:05 Baso % (Auto) 0.3 % 04/15/23 07:05 Neut # (Auto) 9.18 10^3/uL (1.8-7.7) H 04/15/23 07:05 Lymph # (Auto) 0.9 10^3/uL (0.8-4.8) 04/15/23 07:05 [place] # (Auto) 0.6 10^3/uL (0.2-0.9) 04/15/23 07:05 Eos # (Auto) 0.0 10^3/uL (0.0-0.8) 04/15/23 07:05 Baso # (Auto) 0.0 10^3/uL (0.0-0.1) 04/15/23 07:05 Nucleated RBC % (auto) 0 % 04/15/23 07:05 Nucleated RBCs # 0.0 /100WBC 04/15/23 07:05 Sodium 141 mmol/L (136-145) 04/15/23 07:05 Potassium 3.2 mmol/L (3.5-5.1) L 04/15/23 07:05 Chloride 103 mmol/L (98-107) 04/15/23 07:05 Carbon Dioxide 25 mmol/L (22-29) 04/15/23 07:05 Anion Gap 16.2 (5-19) 04/15/23 07:05 BUN 10 mg/dL (8-23) 04/15/23 07:05 Creatinine 0.8 mg/dL (0.5-0.9) 04/15/23 07:05 GFR Calculation Not Reportable 04/15/23 07:05 Glucose 139 mg/dL (65-115) H 04/15/23 07:05 Calculated Osmolality 293 mOsm/kg (285-295) 04/15/23 07:05 Calcium 8.8 mg/dL (8.5-10.5) 04/15/23 07:05 Total Bilirubin 0.4 mg/dL (0.15-1.2) 04/15/23 07:05 AST 21 U/L (0-32) 04/15/23 07:05 ALT 14 U/L (0-33) 04/15/23 07:05 Alkaline Phosphatase 83 U/L (35-105) 04/15/23 07:05 Total Protein 6.1 g/dL (6.6-8.7) L 04/15/23 07:05 Albumin 4.2 g/dL (3.5-5.2) 04/15/23 07:05 Globulin 1.9 g/dL (1.3-4.6) 04/15/23 07:05 Urine Color Red (Yellow) 04/15/23 07:00 Urine Appearance Cloudy (CLEAR) A 04/15/23 07:00 Urine pH 6.5 (5-7) 04/15/23 07:00 Ur Specific [place] 1.030 (1.005-1.030) 04/15/23 07:00 Urine Protein 2+ (Negative) H 04/15/23 07:00 Urine Glucose (UA) Norm (Normal) 04/15/23 07:00 Urine Ketones Negative (Negative) 04/15/23 07:00 Urine Blood 3+ (Negative) H 04/15/23 07:00 Urine Nitrate Positive (Negative) H 04/15/23 07:00 Urine Bilirubin Neg (Negative) 04/15/23 07:00 Urine Urobilinogen Norm mg/dL (Negative) 04/15/23 07:00 Ur Leukocyte Esterase 2+ (Negative) H 04/15/23 07:00 Urine RBC Too numerous to cnt /hpf (0-2) H 04/15/23 07:00 Urine WBC Too numerous to cnt /hpf (0-5) H 04/15/23 07:00 Ur Squamous Epith Cells 0-4 /hpf (0-5) H 04/15/23 07:00 Amorphous Sediment Not Reportable 04/15/23 07:00 Urine Bacteria 1+ /hpf (NONE) H 04/15/23 07:00 Hyaline Casts 0-4 /lpf H 04/15/23 07:00 RBC Casts Rare /lpf 04/15/23 07:00 Urine Mucus 1+ /hpf 04/15/23 07:00 Discharge Plan Discharge Patient Disposition: Home Clinical Impression: Hematuria, Mass of hepatic flexure of colon Condition: Stable Prescriptions: New Macrobid 100 mg capsule 100 mg PO BID 7 Days Qty: 14 0RF Rx Instructions: must administer with a meal/food No Action clopidogrel [Plavix] 75 mg tablet 75 mg PO DAILY@2100 nitroglycerin [Nitrostat] 0.4 mg tablet, sublingual 0.4 mg SUBLINGUAL Q5M PRN (Reason: chest pains) Rx Instructions: do not exceed 3 doses per episode atorvastatin 40 mg tablet 40 mg PO DAILY@2100 aspirin [Adult Low Dose Aspirin] 81 mg tablet,delayed release (DR/EC) 81 mg PO DAILY@2100 alprazolam 0.5 mg tablet 1 mg PO BID PRN (Reason: Anxiety) bupivacaine (PF) 0.25 % (2.5 mg/mL) solution 1 ml Infiltration ONCE Qty: 1 0RF lidocaine (PF) 10 mg/mL (1 %) solution 1 ml Infiltration ONCE Qty: 1 0RF hydrocodone-acetaminophen 5-325 mg tablet 1 tab PO BID PRN (Reason: pain) 7 Days Qty: 14 0RF methocarbamol 500 mg tablet 500 mg PO Q8H Qty: 30 0RF biotin 1,000 mcg tablet,chewable 1,000 mcg PO DAILY azelaic acid 15 % gel 1 applic topical BID Qty: 50 2RF Rx Instructions: Apply a pea sized amount to face twice daily isosorbide mononitrate 120 mg tablet extended release 24 hr See Rx Instructions .ROUTE .COMPLEX Qty: 90 3RF Dose Instruction: TAKE 1 TABLET BY MOUTH DAILY AT 9 PM Rx Instructions: TAKE 1 TABLET BY MOUTH EVERY EVENING AT 9 PM potassium chloride 20 mEq tablet extended release 20 meq PO DAILY Qty: 30 5RF amlodipine 5 mg tablet See Rx Instructions .ROUTE .COMPLEX Qty: 90 3RF Dose Instruction: TAKE 1 TABLET BY MOUTH DAILY Rx Instructions: TAKE 1 TABLET BY MOUTH DAILY magnesium 500 mg Tablet 500 mg PO DAILY@1600 ascorbic acid (vitamin C) [Vitamin C] 500 mg Tablet 500 mg PO DAILY@1600 cholecalciferol (vitamin D3) [Vitamin D3] 125 mcg (5,000 unit) Tablet 125 mcg PO DAILY@1600 metoprolol ta-hydrochlorothiaz 100-25 mg Tablet 1 tab PO DAILY Discharge Orders: Discharge ED (Routine); Ordered 04/15/23 Ordered By: Jayro Odonnell Referrals: Kassie Toscano [Primary Care Provider] - Patient Instructions: Opioid Safety, Pain Management Activity Restrictions/Additional Instructions: You were seen today for blood in your urine. The bleeding is stopped with irrigation applied in the emergency room. Recommend that you take a course of antibiotics urine will be cultured Case management make arrangements for you to follow-up with urology. Incidental finding on your CT of a questionable thickening and possible stricture on the right side of your colon where it turns near the liver. This should be further evaluated by colonoscopy. I did contact Dr. Rivero and advised him of the finding. Recommend that you contact his office to make an appointment for further evaluation. Coding Level of Care Code ED Helper Maintenance Cleaning for Maulik Narvaez
--- NOTE | 2023-04-15 07:01 | CT_ITS ---
WS: [id number] CT ABDOMEN PELVIS TECHNIQUE: Noncontrast CT of the abdomen and pelvis with coronal and sagittal reformatted images. CLINICAL INFORMATION: gross hematuria COMPARISON: 2020 DLP: 303.[address] scans at [facility] use at least one of these dose optimization techniques: automated e xposure control; mA and/or kV adjustment per patient size (includes targeted exams where dose is matc hed to clinical indication); or iterative reconstruction. FINDINGS:Diffuse transmural wall thickening involving the hepatic flexure colon with surrounding eileen ration and enlarged lymph nodes. Obstruction involving the cecum and RIGHT colon with diffuse wall th ickening. Fecal retention. Suspected hepatic flexure mass also abuts the traversing duodenum. Tortuou s transverse colon displaced into the pelvis. Transverse colon is decompressed. Findings suspicious f or colonic carcinoma. Recommend colonoscopy. Lung bases are well aerated. Fibrosis RIGHT lung base medially. Stable hemangioma in the RIGHT hepati c lobe. This is better demonstrated on the prior contrast-enhanced CT. Additional hemangioma LEFT hep atic lobe. Cholelithiasis. Small esophageal hiatal hernia. Splenic granulomas. Mesenteric calcification. Fatty atrophy of the pancreas. Normal caliber abdominal aorta with moderate atheromatous disease. Small LEFT adrenal lesion likely adenoma measuring 9 mm. This appears unchanged. RIGHT adrenal gland is normal. RIGHT peripelvic renal cysts. No hydronephrosis. No obstructing renal or ureteral calculi. Pelvic phleboliths. Calcifications in the uterus likely small uterine fibroid. Mild diffuse bladder wall thickening. Bladder is decompressed. CT/CT kidney stone [id number] IMPRESSION: 1. No hydronephrosis. No obstructing renal or ureteral calculi. 2. Diffuse bladder wall thickening. Bladder is relatively decompressed. Recomm end further evaluation with cystoscopy considering hematuria. 3. 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 Surrounding induration and inflammatory changes with s urrounding lymph nodes. Colitis is an additional less likely consideration. Rec ommend further evaluation with colonoscopy. 4. Distention with fecal retention in the RIGHT colon and. 5. Similar-appearing hepatic hemangiomas. 6. Small esophageal hiatal hernia.
[2023-04-15 07:12] LABS: Basophils % 0.3 %; Eosinophils % 0.3 %; Hematocrit 34.4 % (37.0-47.0); Hemoglobin 9.8 g/dL (11.5-15.3); Lymphocytes # 0.9 10^3/uL (0.8-4.8); Lymphocytes % 8.2 %; Mean Corpuscular HGB Conc 28.5 g/dL (30.0-36.0); Mean Corpuscular Hemoglobin 24.7 pg (28.0-34.0); Mean Corpuscular Volume 86.6 fl (81-99); Mean Platelet Volume 8.4 fL (7.4-10.4); Monocytes # 0.6 10^3/uL (0.2-0.9); Monocytes % 5.7 %; Neutrophils # 9.18 10^3/uL (1.8-7.7); Nucleated Red Blood Cells % 0 %; Platelet Count 260 10^3/cmm (130-400); Red Blood Count 3.97 10^6/uL (4.1-5.3); Red Cell Distribution Width 21.1 % (12.1-15.1); White Blood Count 10.8 10^3/uL (4.0-10.0)
[2023-04-15 07:35] LABS: Alanine Aminotransferase 14 U/L (0-33); Albumin Level 4.2 g/dL (3.5-5.2); Alkaline Phosphatase 83 U/L (35-105); Aspartate Amino Transferase 21 U/L (0-32); Blood Urea Nitrogen 10 mg/dL (8-23); Calcium 8.8 mg/dL (8.5-10.5); Carbon Dioxide 25 mmol/L (22-29); Chloride 103 mmol/L (98-107); Globulin 1.9 g/dL (1.3-4.6); Glucose 139 mg/dL (65-115); Osmolality Calculated 293 mOsm/kg (285-295); Sodium 141 mmol/L (136-145); Total Bilirubin 0.4 mg/dL (0.15-1.2); Total Protein 6.1 g/dL (6.6-8.7)
[2023-04-15 07:37] LABS: Anion Gap 16.2 (5-19); Potassium 3.2 mmol/L (3.5-5.1)
[2023-04-15 07:48] LABS: Urine Appearance Cloudy (CLEAR); Urine Color Red (Yellow)
[2023-04-15 07:49] LABS: Blood Urine 3+ (Negative); Glucose Urine UA Norm (Normal); Ketones Urine Negative (Negative); Protein Urine 2+ (Negative); pH Urine 6.5 (5-7)
[2023-04-15 07:50] LABS: Add Urine Microscopic? YES; Bilirubin Urine Neg (Negative); Leukocyte Esterase Urine 2+ (Negative); Nitrate Urine Positive (Negative); RBC Urine TOO NUMEROUS TO CNT /hpf (0-2); Urobilinogen Urine Norm (Negative); WBC Urine TOO NUMEROUS TO CNT /hpf (0-5)
[2023-04-15 07:51] LABS: Add Urine Culture? Yes; Bacteria Urine 1+ /hpf; Hyaline Casts Urine 0-4 /lpf; Mucus Urine 1+ /hpf; Red Blood Cell Casts Urine RARE /lpf; Squamous Epithelial Cell Urine 0-4 /hpf (0-5)
[2023-04-15 08:36] VITALS: RESP 14; O2SAT 99
[2023-04-15] MEDS: morphine 4 mg/mL SDV 1 mL 2 MG IVP ×2 (08:36→09:19)
[2023-04-15] MEDS: tizanidine 4 mg Tablet 2 MG PO (08:36)
[2023-04-15 09:19] VITALS: RESP 14; O2SAT 97
--- NOTE | 2023-04-15 09:57 | DCPLANNER ---
Addendum entered by Domitila Arroyo 04/22/23 10:15: project engineering manager called [facility] to confirm that patients information had been received, case packer and sealer was told that clinic had received patients information, it will be reviewed, clinic will call patient with appointment information. Addendum entered by Domitila Arroyo 04/15/23 11:34: project engineering manager spoke with patient and explained that patient would need to be referred somewhere else, patient stated that she would like to be referred to [facility]. project engineering manager faxed patients information to [facility], where it will be reviewed, and clinic will call patient with appointment information. Addendum entered by Domitila Arroyo 04/15/23 11:33: project engineering manager received the following message from the urology clinic regarding follow up appointment: Please send elsewhere Dr. Prater will not have time to work patient up. Thank you Original Note: project engineering manager had message to schedule a follow up appointment for patient with urology. project engineering manager sent patients information to the front office staff at urology. Patients information will be printed and reviewed. Clinic will call patient with appointment information.
== END 2023-04-15 10:24 | disposition home or self-care (01) ==
PROVIDERS: Emergency Provider Family Medicine; PCP Registered Nurse
DX: K63.89 Other specified diseases of intestine (principal); R31.9 Hematuria, unspecified
CPT/HCPCS: 51702; 74176; 80053; 81001; 85025; 87086; 96374; 96376; 99285; J2270

== ENCOUNTER 2023-05-23 14:17 | Emergency (ER) | payer MEDICARE, OTHER, SELFPAY ==
[2023-05-23 14:34] VITALS: BP 115/70; PULSE 74; RESP 14; TEMP 36.3; O2SAT 96; BMI 21.4
[2023-05-23 14:41] VITALS: O2SAT 98
--- NOTE | 2023-05-23 15:55 | CTR_ITS ---
PROCEDURE INFORMATION: Exam: CT Abdomen And Pelvis With Contrast Exam date and time: 05/23/2023 5:27 PM Age: 82 years old Clinical indication: Constipation; Additional info: Colon cancer, constipation vs blockage, no bm in 1 week TECHNIQUE: Imaging protocol: Computed tomography of the abdomen and pelvis with contrast. Radiation optimization: All CT scans at this facility use at least one of these dose optimization techniques: automated exposure control; mA and/or kV adjustment per patient size (includes targeted exams where dose is matched to clinical indication); or iterative reconstruction. Contrast material: OMNI 350; Contrast volume: 100 ml; Contrast route: INTRAVENOUS (IV); REPORTING DATA: Count of CT and Cardiac NM exams in prior 12 months: This patient has received 4 known CTs and 0 known cardiac nuclear medicine studies in the 12 months prior to the current study. COMPARISON: CT kidney stone [id number] 04/15/2023 7:44 AM RADIATION DOSE METRICS: Total DLP (mGy-cm): 376.12 FINDINGS: Tubes, catheters and devices: Pacemaker leads in the heart. Diaphragm: Small hiatal hernia. Hyperdensities in the distal esophagus most likely represent swallowed medication capsules. Liver: 3.5 cm right liver lobe and 2.3 cm left liver lobe nodules with peripheral nodular enhancement. Gallbladder and bile ducts: Fluid distended gallbladder with a 9 mm dependent calcified stone. No wall thickening. The bile ducts are normal. Pancreas: Normal. No ductal dilation. Spleen: Calcified granulomas in the spleen. Adrenal glands: 1.1 cm stable indeterminate nodule in the left adrenal body. The right adrenal is normal. Kidneys and ureters: Right renal cyst, Hounsfield units less than 20. Hypodensity in the left kidney is too small to characterize but is most likely a cyst. No follow-up imaging is recommended. No calculus or hydronephrosis. Stomach and bowel: 4.5 cm long mass in the hepatic flexure portion of the colon with an obstructing stricture. There is irregularity of the outer colon wall and fat stranding, suggesting invasion outside the colon wall. There is stool distension of the cecum and ascending colon. Fluid distension within multiple loops of terminal and distal ileum measuring up to 3.0 cm. Mild wall thickening and enhancement within the distal ileum. The more proximal small bowel is nondistended. Stable distension of the proximal duodenum. Appendix: The appendix is visualized and is normal. Intraperitoneal space: Mild ascites. No free air. Vasculature: Diffuse arterial calcifications. No aneurysm. Lymph nodes: Unremarkable. No enlarged lymph nodes. Urinary bladder: Unremarkable as visualized. Reproductive: Small calcified uterine fibroid. The ovaries are unremarkable. Bones/joints: Degenerative changes of the spine. No fracture or destructive lesion identified. Soft tissues: Unremarkable. Other findings: Emphysema and mild scarring. CT/CT abdomen pelvis w con* [id number] IMPRESSION: 1. 4.5 cm obstructing mass in the hepatic flexure portion of the colon with distention of the proximal colon and mid to distal small bowel. 2. Multiple loops of obstructed distal small bowel have mild wall thickening and enhancement. This could represent superimposed enteritis. 3. 1.1 cm indeterminate left adrenal nodule. 4. Hepatic hemangiomas. COMMENTS: Consistent with the [employer]'s Incidental Findings Committee white paper (J Am Tammy Radiol 2018): Any incidental renal lesion less than 1 cm or classified as too small to characterize, or any incidental cystic renal lesion characterized as simple-appearing, is likely benign. No follow-up imaging is recommended for these lesions per consensus recommendations based on imaging criteria.
--- NOTE | 2023-05-23 15:55 | W.ED.ABDPA2 ---
HPI - Abdominal Pain General: Chief Complaint: Abdominal Pain Stated Complaint: possible blockage Time Seen by Provider: 05/23/23 15:52 History of Present Illness: Patient presents to the ER with complaints of abdominal pain, vomiting, no bowel movement for 5 days. Patient has a known colon mass and is scheduled to have removed in 3 days in [place]. Patient called her surgeon they told her to come here to be evaluated to make for sure the mass has not caused a total blockage. Patient has never had the symptoms like this before. Patient does not have a history of constipation. Patient denies any other complaints at this time. Review of Systems General: Reports: 10 or more systems reviewed and unremarkable except in HPI and below PFSH ED PFSH: Medical History ASHD (arteriosclerotic heart disease) Bilateral carotid artery stenosis CAD (coronary artery disease) Carotid artery stenosis Chest pain Atypical chest pain likely MSK Diabetes Dyslipidemia Hypertension 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 Surgical History H/O cataract extraction History of PTCA Family History Mother CAD (coronary artery disease) Father CAD (coronary artery disease) Brother CAD (coronary artery disease) Sister CAD (coronary artery disease) Chronic kidney disease (CKD) Diabetes Hyperlipidemia Hypertension Stroke Denies family history of Clotting disorder Dementia Suicide Anesthesia complication Bleeding disorder Lung disease Cancer Social History Smoking and tobacco status: former smoker Second hand smoke exposure: No Alcohol intake: never Substance/Drug Use: never Pets and animals: No Physical Exam Const: COMMON NORMALS: no acute distress, average body habitus, patient oriented x3, no limitations, healthy appearing, alert and well nourished HENMT: COMMON NORMALS: normocephalic, atraumatic, hearing grossly normal bilaterally, external ears normal, Normal external nose present and moist oral mucous membranes HEAD & SCALP: normocephalic and atraumatic NOSE: Normal external nose present EXTERNAL EAR: Yes external ears normal Neck/C-Spine: COMMON NORMALS: full ROM, no lymphadenopathy, supple, no meningeal signs, no JVD and Thyroid normal THYROID: Thyroid normal Chest: COMMONS NORMALS: normal inspection of the chest and normal palpation of entire chest wall Resp: COMMON NORMALS: normal respiratory effort, No retractions, No use of accessory muscles and clear to auscultation bilaterally AUSCULTATION: clear to auscultation bilaterally Cardio: COMMON NORMALS: no JVD, regular rate, regular rhythm, S1 normal heart sound present, S2 normal heart sound present, No gallops present (Cardio), No clicks present (Cardio) and No murmurs present (Cardio) RATE: regular rate RHYTHM: regular rhythm HEART SOUNDS: S1 normal heart sound present and S2 normal heart sound present GI: COMMON NORMALS: Normal to inspection, nondistended, normoactive bowel sounds present, Soft to palpation, No hepatosplenomegaly present and no masses; negative for non-tender (Diffusely mildly tender.) PALPATION: Yes Soft to palpation and Yes No hepatosplenomegaly present Neuro: COMMON NORMALS: patient oriented x3 SENSORIUM/ORIENTATION: Yes alert MENINGEAL SIGNS: Yes no meningeal signs Course Vital Signs: Vital signs: Vital Signs Temperature 97.4 F L 05/23/23 14:34 Pulse Rate 74 05/23/23 14:34 Respiratory Rate 14 05/23/23 14:34 Blood Pressure 115/70 05/23/23 14:34 Pulse Oximetry 98 05/23/23 14:41 Oxygen Delivery Me thod Room Air 05/23/23 14:41 MDM - Abdominal Pain Medical Decision Making Patient presents to the ER today with no bowel movement x5 days with nausea and vomiting. Patient does have a known colon mass that she is going for resection to [facility] next week. Labs were obtained and contrasted CT scan was obtained which showed this mass is now an obstructing mass near the hepatic flexure of the colon. Dr. Walsh is her surgeon but she was not on-call Dr. Monroy was on-call he excepted the patient for further evaluation and transfer. Differential Diagnosis Likely abdominal pain and constipation; Unlikely acute appendicitis, calculus of kidney, diverticulitis, endometriosis, gastroenteritis, pancreatitis or small bowel obstruction Medical Records I reviewed the patient's medical records. Lab Data I reviewed the patient's lab results. 05/23/23 16:37 05/23/23 16:37 Labs/Radiology: Radiology Impressions Abdomen/Pelvis CT 05/23/23 15:55 IMPRESSION: 1. 4.5 cm obstructing mass in the hepatic flexure portion of the colon with distention of the proximal colon and mid to distal small bowel. 2. Multiple loops of obstructed distal small bowel have mild wall thickening and enhancement. This could represent superimposed enteritis. 3. 1.1 cm indeterminate left adrenal nodule. 4. Hepatic hemangiomas. COMMENTS: Consistent with the [employer]'s Incidental Findings Committee white paper (J Am Tammy Radiol 2018): Any incidental renal lesion less than 1 cm or classified as too small to characterize, or any incidental cystic renal lesion characterized as simple-appearing, is likely benign. No follow-up imaging is recommended for these lesions per consensus recommendations based on imaging criteria. Laboratory Results WBC 10.3 10^3/uL (4.0-10.0) H 05/23/23 16:37 RBC 4.51 10^6/uL (4.1-5.3) 05/23/23 16:37 Hgb 12.3 g/dL (11.5-15.3) 05/23/23 16:37 Hct 41.7 % (37.0-47.0) 05/23/23 16:37 MCV 92.5 fl (81-99) 05/23/23 16:37 MCH 27.3 pg (28.0-34.0) L 05/23/23 16:37 MCHC 29.5 g/dL (30.0-36.0) L 05/23/23 16:37 RDW 17.2 % (12.1-15.1) H 05/23/23 16:37 Plt Count 290 10^3/cmm (130-400) 05/23/23 16:37 MPV 8.6 fL (7.4-10.4) 05/23/23 16:37 Neut % (Auto) 83.9 % 05/23/23 16:37 Lymph % (Auto) 11.5 % 05/23/23 16:37 [place] % (Auto) 3.6 % 05/23/23 16:37 Eos % (Auto) 0.3 % 05/23/23 16:37 Baso % (Auto) 0.4 % 05/23/23 16:37 Neut # (Auto) 8.66 10^3/uL (1.8-7.7) H 05/23/23 16:37 Lymph # (Auto) 1.2 10^3/uL (0.8-4.8) 05/23/23 16:37 [place] # (Auto) 0.4 10^3/uL (0.2-0.9) 05/23/23 16:37 Eos # (Auto) 0.0 10^3/uL (0.0-0.8) 05/23/23 16:37 Baso # (Auto) 0.0 10^3/uL (0.0-0.1) 05/23/23 16:37 Nucleated RBC % (auto) 0 % 05/23/23 16:37 Nucleated RBCs # 0.0 /100WBC 05/23/23 16:37 Sodium 136 mmol/L (136-145) 05/23/23 16:37 Potassium 3.8 mmol/L (3.5-5.1) 05/23/23 16:37 Chloride 101 mmol/L (98-107) 05/23/23 16:37 Carbon Dioxide 23 mmol/L (22-29) 05/23/23 16:37 Anion Gap 15.8 (5-19) 05/23/23 16:37 BUN 9 mg/dL (8-23) 05/23/23 16:37 Creatinine 0.7 mg/dL (0.5-0.9) 05/23/23 16:37 GFR Calculation Not Reportable 05/23/23 16:37 Glucose 108 mg/dL (65-115) 05/23/23 16:37 Calculated Osmolality 281 mOsm/kg (285-295) L 05/23/23 16:37 Calcium 9.4 mg/dL (8.5-10.5) 05/23/23 16:37 Total Bilirubin 0.5 mg/dL (0.15-1.2) 05/23/23 16:37 AST 20 U/L (0-32) 05/23/23 16:37 ALT 8 U/L (0-33) 05/23/23 16:37 Alkaline Phosphatase 98 U/L (35-105) 05/23/23 16:37 Total Protein 6.5 g/dL (6.6-8.7) L 05/23/23 16:37 Albumin 3.8 g/dL (3.5-5.2) 05/23/23 16:37 Globulin 2.7 g/dL (1.3-4.6) 05/23/23 16:37 Discharge Plan Discharge Patient Disposition: Xfer Short-Term Hosp Clinical Impression: Colon obstruction, Mass of hepatic flexure of colon Condition: Stable Prescriptions: No Action clopidogrel [Plavix] 75 mg tablet 75 mg PO DAILY@2100 nitroglycerin [Nitrostat] 0.4 mg tablet, sublingual 0.4 mg SUBLINGUAL Q5M PRN (Reason: chest pains) Rx Instructions: do not exceed 3 doses per episode atorvastatin 40 mg tablet 40 mg PO DAILY@2100 aspirin [Adult Low Dose Aspirin] 81 mg tablet,delayed release (DR/EC) 81 mg PO DAILY@2100 alprazolam 0.5 mg tablet 1 mg PO BID PRN (Reason: Anxiety) bupivacaine (PF) 0.25 % (2.5 mg/mL) solution 1 ml Infiltration ONCE Qty: 1 0RF lidocaine (PF) 10 mg/mL (1 %) solution 1 ml Infiltration ONCE Qty: 1 0RF hydrocodone-acetaminophen 5-325 mg tablet 1 tab PO BID PRN (Reason: pain) 7 Days Qty: 14 0RF methocarbamol 500 mg tablet 500 mg PO Q8H Qty: 30 0RF biotin 1,000 mcg tablet,chewable 1,000 mcg PO DAILY azelaic acid 15 % gel 1 applic topical BID Qty: 50 2RF Rx Instructions: Apply a pea sized amount to face twice daily potassium chloride 20 mEq tablet extended release 20 meq PO DAILY Qty: 30 5RF amlodipine 5 mg tablet See Rx Instructions .ROUTE .COMPLEX Qty: 90 3RF Dose Instruction: TAKE 1 TABLET BY MOUTH DAILY Rx Instructions: TAKE 1 TABLET BY MOUTH DAILY isosorbide mononitrate 120 mg tablet extended release 24 hr See Rx Instructions .ROUTE .COMPLEX Qty: 90 3RF Dose Instruction: TAKE 1 TABLET BY MOUTH EACH EVENING AT 9PM Rx Instructions: TAKE 1 TABLET BY MOUTH EACH EVENING AT 9PM magnesium 500 mg Tablet 500 mg PO DAILY@1600 ascorbic acid (vitamin C) [Vitamin C] 500 mg Tablet 500 mg PO DAILY@1600 cholecalciferol (vitamin D3) [Vitamin D3] 125 mcg (5,000 unit) Tablet 125 mcg PO DAILY@1600 metoprolol ta-hydrochlorothiaz 100-25 mg Tablet 1 tab PO DAILY Referrals: Kassie Toscano [Primary Care Provider] - Coding Level of Care Code ED [employer] President for [employer]g Fwd
[2023-05-23] MEDS: ondansetron 2 mg/ML SDV 2 mL 4 MG IVP (16:33)
[2023-05-23] MEDS: ketorolac 30 mg/mL INJ IVP (16:33)
[2023-05-23] MEDS: sodium chloride 0.9% 1,000 ML 999 ML IV (16:34)
[2023-05-23 16:47] LABS: Basophils % 0.4 %; Eosinophils % 0.3 %; Hematocrit 41.7 % (37.0-47.0); Hemoglobin 12.3 g/dL (11.5-15.3); Lymphocytes # 1.2 10^3/uL (0.8-4.8); Lymphocytes % 11.5 %; Mean Corpuscular HGB Conc 29.5 g/dL (30.0-36.0); Mean Corpuscular Hemoglobin 27.3 pg (28.0-34.0); Mean Corpuscular Volume 92.5 fl (81-99); Mean Platelet Volume 8.6 fL (7.4-10.4); Monocytes # 0.4 10^3/uL (0.2-0.9); Monocytes % 3.6 %; Neutrophils # 8.66 10^3/uL (1.8-7.7); Neutrophils % 83.9 %; Nucleated Red Blood Cells % 0 %; Platelet Count 290 10^3/cmm (130-400); Red Blood Count 4.51 10^6/uL (4.1-5.3); Red Cell Distribution Width 17.2 % (12.1-15.1); White Blood Count 10.3 10^3/uL (4.0-10.0)
[2023-05-23 17:15] LABS: Alanine Aminotransferase 8 U/L (0-33); Albumin Level 3.8 g/dL (3.5-5.2); Alkaline Phosphatase 98 U/L (35-105); Anion Gap 15.8 (5-19); Aspartate Amino Transferase 20 U/L (0-32); Blood Urea Nitrogen 9 mg/dL (8-23); Calcium 9.4 mg/dL (8.5-10.5); Carbon Dioxide 23 mmol/L (22-29); Chloride 101 mmol/L (98-107); Globulin 2.7 g/dL (1.3-4.6); Glucose 108 mg/dL (65-115); Osmolality Calculated 281 mOsm/kg (285-295); Potassium 3.8 mmol/L (3.5-5.1); Sodium 136 mmol/L (136-145); Total Bilirubin 0.5 mg/dL (0.15-1.2); Total Protein 6.5 g/dL (6.6-8.7)
[2023-05-23] MEDS: iohexol 350 mg/mL 500 mL Btl (per mL) IV (17:28)
[2023-05-23 18:00] VITALS: BP 126/73; PULSE 87; RESP 18; TEMP 37; O2SAT 96
--- NOTE | 2023-05-23 19:36 | XRR_ITS ---
PROCEDURE INFORMATION: Exam: XR Chest Exam date and time: 05/23/2023 8:15 PM Age: 82 years old Clinical indication: Device placement; Ng tube; Additional info: Ng placement TECHNIQUE: Imaging protocol: Radiologic exam of the chest. Views: 1 view. COMPARISON: CR IR myelogram sp cervic/thorac 07/03/2022 8:18 AM FINDINGS: Tubes, catheters and devices: Gastric tube with tip in the proximal to mid stomach. Intact dual lead left subclavian pacemaker. Lungs: Unremarkable. No consolidation. Pleural spaces: Unremarkable. No pleural effusion. No pneumothorax. Heart/Mediastinum: Unremarkable. No cardiomegaly. Bones/joints: Unremarkable. XR/XR chest 1V portable [id number] IMPRESSION: 1. No acute pulmonary findings. 2. Gastric tube tip in the proximal to mid stomach.
--- NOTE | 2023-05-23 19:36 | PC.NURSE ---
Patient resting in bed, VSS, tolerated NG placement well with air bolus heard and cxr ordered. Report handed off to Keely HOUGH.
[2023-05-23] MEDS: sodium chloride 0.9% 1,000 ML 150 ML IV (21:10)
[2023-05-23] MEDS: LORazepam 2 mg/mL INJ 1 mL 1 MG IVP (21:14)
[2023-05-23] MEDS: olopatadine 0.1% Op Soln 5 mL Btl 1 DROP EYE-BOTH (21:55)
[2023-05-23 22:00] VITALS: BP 130/66; PULSE 84; O2SAT 92
[2023-05-23 23:00] VITALS: BP 162/65; PULSE 91; O2SAT 93
[2023-05-24] VITALS (7 sets, daily range): BP systolic 112–155; BP diastolic 53–71; PULSE 85–90; RESP 16–18; O2SAT 90–97
--- NOTE | 2023-05-24 02:05 | XRR_ITS ---
PROCEDURE INFORMATION: Exam: XR Chest Exam date and time: 05/24/2023 2:19 AM Age: 82 years old Clinical indication: Device placement; Prior surgery; Surgery date: 6+ months; Surgery type: Pacer; Patient HX: Recheck placement of ng tube. ; Additional info: Ng tube position TECHNIQUE: Imaging protocol: Radiologic exam of the chest. Views: 1 view. COMPARISON: CR (CHEST, ) 05/23/2023 8:15 PM FINDINGS: Tubes, catheters and devices: Sump port of the enteral tube is at the GE junction. Left subclavian transvenous atrioventricular pacemaker is in expected position. Lungs: Clear lungs. Pleural spaces: No pleural effusion. No pneumothorax. Heart/Mediastinum: Cardiac silhouette is normal in size for technique. Vasculature: Calcified aortic arch without dilation. Bones/joints: Age appropriate. XR/XR chest 1V portable [id number] IMPRESSION: Sump port of the enteral tube is near the GE junction. Consider advancing the device approximately 6 cm to situate the sump port in the gastric lumen.
[2023-05-24] MEDS: morphine 4 mg/mL SDV 1 mL IVP ×2 (02:59→07:45)
[2023-05-24] MEDS: ondansetron 2 mg/ML SDV 2 mL 4 MG IVP (02:59)
[2023-05-24] MEDS: sodium chloride 0.9% 1,000 ML 150 ML IV ×2 (04:08→11:08)
[2023-05-24] MEDS: LORazepam 2 mg/mL INJ 1 mL 1 MG IM (06:04)
--- NOTE | 2023-05-24 07:02 | PC.NURSE ---
Checked on patient at shift change, pt is resting comfortably and is sleeping off and on. Vitals are all stable at this time.
--- NOTE | 2023-05-24 07:40 | XR_ITS ---
WS: [id number] Exam: XR chest 1V portable [id number] Date/Time of Exam: 05/24/2023 7:42 AM Reason For Exam: NG tube placement Comparison 05/24/2023. The lungs are fully expanded and clear. The lateral lower right lung zone is out of the [id number] . Normal cardiomediastinal silhouette. An NG tube is looped in the stomach probably ending near the r egion of the antrum. Permanent cardiac pacer superimposes the left chest. Regional bony structures ar e intact. XR/XR chest 1V portable [id number] IMPRESSION: 1. No acute process identified. 2. NG tube in place in the stomach in satisfactory position.
--- NOTE | 2023-05-24 07:56 | PC.NURSE ---
PHYSICIAN GAVE VERBAL ORDER TO ADVANCE NG TUBE AND CONFIRM PLACEMENT WITH XRAY.
--- NOTE | 2023-05-24 08:34 | ECG_ITS ---
[facility] Test Date: 2023-05-24 Pat Name: Ariane Perry Department: Room: Gender: Female [employer] Interpreter: : 1940 Requested By: Scooter Godwin Order Number: [id number] [place] MD: Macie Weems M.D. Measurements Intervals [place] Rate: 94 P: 73 MN: 211 QRS: -76 QRSD: 138 T: 88 QT: 408 QTc: 511 Interpretive Statements SINUS RHYTHM WITH FIRST DEGREE AV BLOCK POSSIBLE LEFT ATRIAL ENLARGEMENT [-0.1mV P-WAVE IN V1/V2] LEFT AXIS DEVIATION [QRS AXIS < -30] INTRAVENTRICULAR CONDUCTION DELAY [130+ ms QRS DURATION] Compared to ECG 10/17/2022 06:53:08 Intraventricular conduction delay now present Left bundle-branch block no longer present Electronically Signed On 05-24-2023 21:48:20 CDT by Macie Weems M.D. [email or web address]
--- NOTE | 2023-05-24 08:48 | PC.NURSE ---
Called report to FRANCE Crandall on 3B at [facility] in [place], [place]. Informed patient and called the patient's daughter and [id number] to give them updates.
--- NOTE | 2023-05-24 09:45 | PC.NURSE ---
1st order of fluids still running. unable to start second liter of maintenance fluids at this time.
[2023-05-24] MEDS: cetacaine Spray 5 gm Can 2 SPRAY TOPICAL (11:23)
== END 2023-05-24 12:06 | disposition short-term general hospital (02) ==
PROVIDERS: Emergency Provider Emergency Medicine; PCP Registered Nurse
DX: K63.89 Other specified diseases of intestine (principal); K56.609 Unspecified intestinal obstruction, unspecified as to partial versus complete obstruction; Z79.82 Long term (current) use of aspirin; Z79.02 Long term (current) use of antithrombotics/antiplatelets; Z87.891 Personal history of nicotine dependence; I25.10 Atherosclerotic heart disease of native coronary artery without angina pectoris; E11.9 Type 2 diabetes mellitus without complications; E78.5 Hyperlipidemia, unspecified; I10 Essential (primary) hypertension; Z95.0 Presence of cardiac pacemaker; Z85.12 Personal history of malignant neoplasm of trachea
CPT/HCPCS: 71045; 74177; 80053; 85025; 93005; 96361; 96374; 96375; 96376; 99285; J1885; J2060; J2270; J2405; J7030; Q9967

== ENCOUNTER 2023-06-04 01:58 | Inpatient (IN) | payer MEDICARE, OTHER, SELFPAY ==
[2023-06-04] VITALS (17 sets, daily range): BP systolic 110–145; BP diastolic 48–72; PULSE 82–114; RESP 14–28; TEMP 37–37.3; O2SAT 91–99; BMI 21.2
--- NOTE | 2023-06-04 02:00 | ED_ITS ---
HPI - Chest Pain General: Chief Complaint: Abdominal Pain Stated Complaint: Post Op Pain Time Seen by Provider: 06/04/23 02:00 History of Present Illness: Ms. Perry is an 82-year-old lady with complex recent medical history including bowel resection presented to the emergency department for increased abdominal pain and chest pain. She notes increasing abdominal pain mostly in the epigastric though somewhat generalized region for the past few days. Worse with palpation and movement. Denies vomiting. She has been having watery diarrhea. She also has noticed increased/green drainage from her SAM drain. This morning she had substernal chest pain associated with shortness of breath and generalized malaise. Moderate to severe in intensity symptoms. No other specific changes in health, exacerbating, or alleviating factors identified. Onset (ago): day(s) Timing of current episode: increasing Severity: moderate Exacerbating factors: exertion and movement Review of Systems General: Reports: 10 or more systems reviewed and unremarkable except in HPI and below PFSH ED PFSH: Medical History ASHD (arteriosclerotic heart disease) Bilateral carotid artery stenosis CAD (coronary artery disease) Carotid artery stenosis Chest pain Atypical chest pain likely MSK Diabetes Dyslipidemia Enteritis Hypertension 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 Surgical History H/O cataract extraction History of PTCA Family History Mother CAD (coronary artery disease) Father CAD (coronary artery disease) Brother CAD (coronary artery disease) Sister CAD (coronary artery disease) Chronic kidney disease (CKD) Diabetes Hyperlipidemia Hypertension Stroke Denies family history of Clotting disorder Dementia Suicide Anesthesia complication Bleeding disorder Lung disease Cancer Social History Smoking and tobacco status: former smoker Second hand smoke exposure: No Alcohol intake: never Substance/Drug Use: never Pets and animals: No Physical Exam Const: COMMON NORMALS: alert GENERAL APPEARANCE: cooperative and well developed HENMT: COMMON NORMALS: normocephalic and atraumatic HEAD & SCALP: normocephalic and atraumatic Eye: COMMON NORMALS: conjunctivae normal CONJUNCTIVA: Yes conjunctivae normal SCLERA: sclerae normal Neck/C-Spine: COMMON NORMALS: supple GENERAL: Yes trachea midline Resp: COMMON NORMALS: clear to auscultation bilaterally EFFORT & INSPECTION: Yes able to speak in complete sentences AUSCULTATION: clear to auscultation bilaterally Cardio: COMMON NORMALS: regular rhythm RATE: tachycardic RHYTHM: regular rhythm GI: COMMON NORMALS: Soft to palpation PALPATION: Yes Soft to palpation, Yes Tenderness to palpation present (GI), No Guarding due to palpation present (GI) and No Rigid due to palpation Extremity: GENERAL: Yes normal exam except as noted and No edema Neuro: COMMON NORMALS: moves all extremities SENSORIUM/ORIENTATION: Yes alert and No Orientation impaired Psych: COMMON NORMALS: mental status grossly normal and Normal thought process present THOUGHT PROCESS: Normal thought process present Course Vital Signs: Vital signs: Vital Signs Temperature 98.9 F 06/05/23 11:37 Pulse Rate 86 06/05/23 11:37 Respiratory Rate 16 06/05/23 11:37 Blood Pressure 147/62 06/05/23 11:37 Pulse Oximetry 93 06/05/23 11:37 Oxygen Delivery Me thod Room Air 06/05/23 11:10 Oxygen Flow Rate 3 06/04/23 06:12 MDM - Chest Pain Medical Decision Making 82-year-old lady presenting with chest and abdominal pain. Exam as above. Somewhat ill-appearing however nontoxic. Abdominal tenderness to palpation. No acute surgical abdomen. EKG demonstrates sinus tachycardia with PVCs, left axis deviation and left bundle branch block, no STEMI. Labs leukocytosis and anemia. Metabolic panel with hypokalemia. Negative range 2-hour delta troponin. Urine with squamous epithelial contamination. Chest x-ray with no lobar consolidation or pneumothorax. CT warranted given degree of illness. Likely enteritis, incidental findings discussed with patient. Patient treated with antiemetic, analgesia, antibiotics. The results of ED evaluation were discussed with the patient including plan for admission due to requirement for level of care not available if discharged to prevent significant worsening/deterioration. Patient agreeable with plan. Discussed with hospitalist service who was agreeable to admit patient. Medical Records I reviewed the patient's medical records. Lab Data I reviewed the patient's lab results. 06/05/23 02:25 06/05/23 02:25 Radiology Impressions Chest X-Ray 06/04/23 02:12 IMPRESSION: Left basilar atelectasis. Chest/Abdomen/Pelvis CT 06/04/23 02:23 IMPRESSION: Small bilateral pleural effusions with adjacent atelectasis. Calcific mediastinal lymphadenopathy. IMPRESSION: Postsurgical change as described. Patchy enteritis infectious or inflammatory. No evidence for small bowel obstruction. Cholelithiasis. 35 mm probable right hepatic hemangioma. Prior granulomatous disease. Renal cysts. COMMENTS: Consistent with the [employer]'s Incidental Findings Committee white paper (J Am Tammy Radiol 2018): Any incidental renal lesion less than 1 cm or classified as too small to characterize, or any incidental cystic renal lesion characterized as simple-appearing, is likely benign. No follow-up imaging is recommended for these lesions per consensus recommendations based on imaging criteria. Laboratory Results WBC 19.6 10^3/uL (4.0-10.0) H 06/05/23 02:25 RBC 2.82 10^6/uL (4.1-5.3) L 06/05/23 02:25 Hgb 7.7 g/dL (11.5-15.3) L 06/05/23 02:25 Hct 26.2 % (37.0-47.0) L 06/05/23 02:25 MCV 92.9 fl (81-99) 06/05/23 02:25 MCH 27.3 pg (28.0-34.0) L 06/05/23 02:25 MCHC 29.4 g/dL (30.0-36.0) L 06/05/23 02:25 RDW 16.3 % (12.1-15.1) H 06/05/23 02:25 Plt Count 350 10^3/cmm (130-400) 06/05/23 02:25 MPV 9.1 fL (7.4-10.4) 06/05/23 02:25 Neut % (Auto) 91.1 % 06/05/23 02:25 Lymph % (Auto) 3.2 % 06/05/23 02:25 [place] % (Auto) 4.0 % 06/05/23 02:25 Eos % (Auto) 0.7 % 06/05/23 02:25 Baso % (Auto) 0.2 % 06/05/23 02:25 Neut # (Auto) 17.85 10^3/uL (1.8-7.7) H 06/05/23 02:25 Lymph # (Auto) 0.6 10^3/uL (0.8-4.8) L 06/05/23 02:25 [place] # (Auto) 0.8 10^3/uL (0.2-0.9) 06/05/23 02:25 Eos # (Auto) 0.1 10^3/uL (0.0-0.8) 06/05/23 02:25 Baso # (Auto) 0.0 10^3/uL (0.0-0.1) 06/05/23 02:25 Nucleated RBC % (auto) 0 % 06/05/23 02:25 Nucleated RBCs # 0.0 /100WBC 06/05/23 02:25 Sodium 137 mmol/L (136-145) 06/05/23 02:25 Potassium 4.2 mmol/L (3.5-5.1) 06/05/23 02:25 Chloride 105 mmol/L (98-107) 06/05/23 02:25 Carbon Dioxide 24 mmol/L (22-29) 06/05/23 02:25 Anion Gap 12.2 (5-19) 06/05/23 02:25 BUN 10 mg/dL (8-23) 06/05/23 02:25 Creatinine 0.7 mg/dL (0.5-0.9) 06/05/23 02:25 GFR Calculation Not Reportable 06/05/23 02:25 Glucose 144 mg/dL (65-115) H 06/05/23 02:25 Calculated Osmolality 286 mOsm/kg (285-295) 06/05/23 02:25 Lactic Acid 1.2 mmol/L (0.5-2.2) 06/04/23 02:08 Calcium 8.1 mg/dL (8.5-10.5) L 06/05/23 02:25 Phosphorus 2.3 mg/dL (2.5-4.5) L 06/05/23 02:25 Magnesium 1.9 mg/dL (1.7-2.3) 06/05/23 02:25 Total Bilirubin 0.4 mg/dL (0.15-1.2) 06/05/23 02:25 AST 18 U/L (0-32) 06/05/23 02:25 ALT 17 U/L (0-33) 06/05/23 02:25 Alkaline Phosphatase 74 U/L (35-105) 06/05/23 02:25 Troponin T Baseline 30 ng/L (0-10) H 06/04/23 02:08 Troponin T 120 Minute 30.78 ng/L (0-10) H 06/04/23 05:00 Delta Troponin T 0.78 ABS# (0-10) 06/04/23 05:00 Troponin T Hi Sens 6Hr 34.58 ng/L (0-10) H 06/04/23 08:01 Troponin T Hi Sens 6Hr Delta 4.58 ng/L (0-12) 06/04/23 08:01 NT-Pro-B Natriuret Pep 1769 pg/mL (0-450) H 06/04/23 02:08 Total Protein 4.2 g/dL (6.6-8.7) L 06/05/23 02:25 Albumin 2.5 g/dL (3.5-5.2) L 06/05/23 02:25 Globulin 1.7 g/dL (1.3-4.6) 06/05/23 02:25 Urine Color Yellow (Yellow) 06/04/23 04:05 Urine Appearance Cloudy (CLEAR) A 06/04/23 04:05 Urine pH 5 (5-7) 06/04/23 04:05 Ur Specific [place] 1.020 (1.005-1.030) 06/04/23 04:05 Urine Protein Trace (Negative) 06/04/23 04:05 Urine Glucose (UA) Norm (Normal) 06/04/23 04:05 Urine Ketones 1+ (Negative) H 06/04/23 04:05 Urine Blood Neg (Negative) 06/04/23 04:05 Urine Nitrate Negative (Negative) 06/04/23 04:05 Urine Bilirubin Neg (Negative) 06/04/23 04:05 Urine Urobilinogen Neg mg/dL (Negative) 06/04/23 04:05 Ur Leukocyte Esterase 2+ (Negative) H 06/04/23 04:05 Urine RBC 5-10 /hpf (0-2) H 06/04/23 04:05 Urine WBC 10-15 /hpf (0-5) H 06/04/23 04:05 Ur Squamous Epith Cells 5-10 /hpf (0-5) H 06/04/23 04:05 Amorphous Sediment Not Reportable 06/04/23 04:05 Urine Bacteria 3+ /hpf (NONE) H 06/04/23 04:05 Urine Mucus 2+ /hpf 06/04/23 04:05 Urine Yeast 3+ /hpf H 06/04/23 04:05 Blood Type O Positive 06/04/23 09:03 Rho(D) Type Positive 06/04/23 09:03 Antibody Screen Negative 06/04/23 09:03 Crossmatch See Detail 06/04/23 09:03 Discharge Plan Discharge Patient Disposition: Admitted As Inpatient Admit Provider: Poonam Jack Clinical Impression: Pleural effusion, bilateral, Chest pain, Shortness of breath, Enteritis Condition: Stable Coding Level of Care Code ED Campaign Management Specialist for Maulik Narvaez
--- NOTE | 2023-06-04 02:12 | XRR_ITS ---
PROCEDURE INFORMATION: Exam: XR Chest Exam date and time: 06/04/2023 3:11 AM Age: 82 years old Clinical indication: Pain; Shortness of breath; Chest pressure; Additional info: Cp TECHNIQUE: Imaging protocol: Radiologic exam of the chest. Views: 1 view. COMPARISON: CT angio chest w abd pel w con 06/04/2023 3:01 AM FINDINGS: Tubes, catheters and devices: A permanent pacemaker overlies and obscures the left lateral chest and axilla with atrial and ventricular wire leads. Lungs: There is atelectasis of the left lung base. Pleural spaces: Unremarkable. No pleural effusion. No pneumothorax. Heart/Mediastinum: Unremarkable. No cardiomegaly. Bones/joints: The bones are osteopenic with degenerative change. XR/XR chest 1V portable [id number] IMPRESSION: Left basilar atelectasis.
--- NOTE | 2023-06-04 02:13 | ECG_ITS ---
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 Measurements Intervals [place] Rate: 102 P: 94 [place]: 198 QRS: -71 QRSD: 137 T: 100 QT: 389 QTc: 509 Interpretive Statements SINUS TACHYCARDIA WITH OCCASIONAL VENTRICULAR PREMATURE COMPLEXES WITH OCCASIONAL SUPRAVENTRICULAR PREMATURE COMPLEXES POSSIBLE LEFT ATRIAL ENLARGEMENT [-0.1mV P-WAVE IN V1/V2] LEFT AXIS DEVIATION [QRS AXIS < -30] LEFT BUNDLE BRANCH BLOCK [120+ ms QRS DURATION, 80+ ms Q/S IN V1/V2, 85+ ms R IN I/aVL/V5/V6] Compared to ECG 05/24/2023 08:34:12 Ventricular premature complex(es) now present Left bundle-branch block now present Sinus rhythm no longer present First degree AV block no longer present Intraventricular conduction delay no longer present Electronically Signed On 06-04-2023 18:37:17 CDT by Macie Weems M.D. [email or web address]
[2023-06-04] MEDS: morphine 4 mg/mL SDV 1 mL IVP (02:18)
[2023-06-04] MEDS: ondansetron 2 mg/ML SDV 2 mL 4 MG IVP (02:19)
[2023-06-04 02:20] LABS: Basophils % 0.1 %; Eosinophils # 0.1 10^3/uL (0.0-0.8); Eosinophils % 0.5 %; Hematocrit 26.9 % (37.0-47.0); Hemoglobin 8.1 g/dL (11.5-15.3); Lymphocytes # 0.6 10^3/uL (0.8-4.8); Lymphocytes % 3.5 %; Mean Corpuscular HGB Conc 30.1 g/dL (30.0-36.0); Mean Corpuscular Hemoglobin 26.9 pg (28.0-34.0); Mean Corpuscular Volume 89.4 fl (81-99); Mean Platelet Volume 9.1 fL (7.4-10.4); Monocytes # 0.5 10^3/uL (0.2-0.9); Monocytes % 3.2 %; Neutrophils # 15.17 10^3/uL (1.8-7.7); Neutrophils % 91.9 %; Nucleated Red Blood Cells % 0 %; Platelet Count 362 10^3/cmm (130-400); Red Blood Count 3.01 10^6/uL (4.1-5.3); Red Cell Distribution Width 15.9 % (12.1-15.1); White Blood Count 16.5 10^3/uL (4.0-10.0)
--- NOTE | 2023-06-04 02:23 | CTR_ITS ---
PROCEDURE INFORMATION: Exam: CTA Chest With Contrast Exam date and time: 06/04/2023 3:01 AM Age: 82 years old Clinical indication: Other: Recent bowel resection; Abdominal pain; Generalized; Shortness of breath; Chest pressure; Prior surgery; Surgery date: 3-7 days post-operative; Additional info: Recent bowel resection, increased abd pain, new cp and SOB TECHNIQUE: Imaging protocol: Computed tomographic angiography of the chest with contrast. Exam focused on the arteries. 3D rendering (Not supervised by radiologist): MIP and/or 3D reconstructed images were created by the technologist. Radiation optimization: All CT scans at this facility use at least one of these dose optimization techniques: automated exposure control; mA and/or kV adjustment per patient size (includes targeted exams where dose is matched to clinical indication); or iterative reconstruction. Contrast material: OMNI 350; Contrast volume: 70 ml; Contrast route: INTRAVENOUS (IV); REPORTING DATA: Count of CT and Cardiac NM exams in prior 12 months: This patient has received 5 known CTs and 0 known cardiac nuclear medicine studies in the 12 months prior to the current study. COMPARISON: CT chest abdpel w/*[id number] 06/03/2021 10:02 AM RADIATION DOSE METRICS: Total DLP (mGy-cm): 255 FINDINGS: Tubes, catheters and devices: There is a permanent pacemaker implanted in the subcutaneous tissues of the anterior left upper chest with atrial and ventricular wire leads. Pulmonary arteries: Normal. No pulmonary emboli. Aorta: Unremarkable. No aortic aneurysm. No aortic dissection. Lungs: See Pleural spaces finding. Pleural spaces: There are small bilateral pleural effusions with adjacent atelectasis. Heart: Unremarkable. No cardiomegaly. No pericardial effusion. Coronary arteries: Coronary artery calcification is present. Lymph nodes: Calcified mediastinal lymphadenopathy is noted. Bones/joints: Unremarkable. No acute fracture. Soft tissues: Unremarkable. PROCEDURE INFORMATION: Exam: CT Abdomen And Pelvis With Contrast Exam date and time: 06/04/2023 3:01 AM Age: 82 years old Clinical indication: Other: Recent bowel resection; Abdominal pain; Generalized; Shortness of breath; Chest pressure; Prior surgery; Surgery date: 3-7 days post-operative; Additional info: Recent bowel resection, increased abd pain, new cp and SOB TECHNIQUE: Imaging protocol: Computed tomography of the abdomen and pelvis with contrast. Radiation optimization: All CT scans at this facility use at least one of these dose optimization techniques: automated exposure control; mA and/or kV adjustment per patient size (includes targeted exams where dose is matched to clinical indication); or iterative reconstruction. Contrast material: OMNI 350; Contrast volume: 70 ml; Contrast route: INTRAVENOUS (IV); REPORTING DATA: Count of CT and Cardiac NM exams in prior 12 months: This patient has received 5 known CTs and 0 known cardiac nuclear medicine studies in the 12 months prior to the current study. COMPARISON: CT abdomen pelvis w con* [id number] 05/23/2023 5:27 PM RADIATION DOSE METRICS: Total DLP (mGy-cm): 439.7 FINDINGS: Tubes, catheters and devices: Liver: At the right hepatic dome there is a 2.1 x 3.4 x 3.5 cm mass but nodular enhancement most typical of a hemangioma. Calcific granulomas are noted within the liver and spleen. Gallbladder and bile ducts: A calcified stone is noted in the dependent portion of the gallbladder fundus. Pancreas: Normal. No ductal dilation. Spleen: See Liver finding. Adrenal glands: Normal. No mass. Kidneys and ureters: Kidneys enhance symmetrically and there is no evidence for hydronephrosis. A 2.7 x 2.1 by 2.2 cm cyst is noted in the right renal midportion. A 7 mm round cyst is noted in the left renal midportion. Stomach and bowel: Since the prior study there has been interval bowel surgery including partial colectomy with an enterocolic anastomosis in the left mid abdomen and placement of an intraperitoneal catheter, likely accounting for the bubbles of free intraperitoneal air. A thickened loop of small bowel just beyond the surgical anastomosis is noted with hazy infiltration of the mesenteric fat adjacent. Thickened small bowel loops are also present in the right pelvis there is no evidence for small bowel obstruction. Liquid stool is noted in the remaining colon. Appendix: No evidence of appendicitis. Intraperitoneal space: There is a small amount of free fluid in the cul-de-sac. Vasculature: The abdominal aorta is normal in course and caliber, heavily calcified. Prominent enhancing periuterine and gonadal veins are noted. Lymph nodes: Unremarkable. No enlarged lymph nodes. Urinary bladder: Unremarkable as visualized. Reproductive: See Vasculature finding. Bones/joints: See Soft tissues finding. Soft tissues: A vertical midline skin staple line is noted. Degenerative changes are noted in the bones. CT/CT angio chest w abd pel w con IMPRESSION: Small bilateral pleural effusions with adjacent atelectasis. Calcific mediastinal lymphadenopathy. IMPRESSION: Postsurgical change as described. Patchy enteritis infectious or inflammatory. No evidence for small bowel obstruction. Cholelithiasis. 35 mm probable right hepatic hemangioma. Prior granulomatous disease. Renal cysts. COMMENTS: Consistent with the [place] [employer]'s Incidental Findings Committee white paper (J Am Tammy Radiol 2018): Any incidental renal lesion less than 1 cm or classified as too small to characterize, or any incidental cystic renal lesion characterized as simple-appearing, is likely benign. No follow-up imaging is recommended for these lesions per consensus recommendations based on imaging criteria.
[2023-06-04] MEDS: fentaNYL 50 mcg/mL INJ 2mL IVP ×2 (02:33→06:08)
[2023-06-04 02:35] LABS: Troponin(5th) Baseline 30 ng/L (0-10)
[2023-06-04 02:45] LABS: Lactic Sepsis W/Reflex 1.2 mmol/L (0.5-2.2)
[2023-06-04 02:48] LABS: Alanine Aminotransferase 20 U/L (0-33); Albumin Level 2.6 g/dL (3.5-5.2); Alkaline Phosphatase 69 U/L (35-105); Anion Gap 12.9 (5-19); Aspartate Amino Transferase 23 U/L (0-32); Blood Urea Nitrogen 10 mg/dL (8-23); Carbon Dioxide 26 mmol/L (22-29); Chloride 102 mmol/L (98-107); Creatinine Clr Calc Pharmacy 44.7594; Globulin 1.6 g/dL (1.3-4.6); Glucose 140 mg/dL (65-115); Magnesium 1.8 mg/dL (1.7-2.3); NT Pro B Type Natriuretic Pept 1769 pg/mL (0-450); Osmolality Calculated 287 mOsm/kg (285-295); Sodium 138 mmol/L (136-145); Total Bilirubin 0.5 mg/dL (0.15-1.2); Total Protein 4.2 g/dL (6.6-8.7)
[2023-06-04 02:50] LABS: Potassium 2.9 mmol/L (3.5-5.1)
[2023-06-04] MEDS: iohexol 350 mg/mL 500 mL Btl (per mL) IV (02:58)
[2023-06-04] MEDS: lidocaine 1% 5 ML in potassium chloride premix 100 ML 26.25 ML IV ×2 (03:20→09:51)
[2023-06-04 04:16] LABS: Add Urine Microscopic? YES; Bilirubin Urine Neg (Negative); Blood Urine Neg (Negative); Glucose Urine UA Norm (Normal); Ketones Urine 1+ (Negative); Leukocyte Esterase Urine 2+ (Negative); Nitrate Urine Negative (Negative); Protein Urine Trace (Negative); Urine Appearance Cloudy (CLEAR); Urine Color Yellow (Yellow); Urobilinogen Urine Neg (Negative); pH Urine 5 (5-7)
[2023-06-04 04:17] LABS: Add Urine Culture? Yes; Bacteria Urine 3+ /hpf; Mucus Urine 2+ /hpf
--- NOTE | 2023-06-04 04:17 | ECG_ITS ---
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 Measurements Intervals [place] Rate: 102 P: 77 [place]: 175 QRS: -69 QRSD: 133 T: 102 QT: 376 QTc: 491 Interpretive Statements SINUS TACHYCARDIA with occasional SA node exit block POSSIBLE LEFT ATRIAL ENLARGEMENT [-0.1mV P-WAVE IN V1/V2] INTRAVENTRICULAR CONDUCTION DELAY [130+ ms QRS DURATION] Compared to ECG 06/04/2023 02:07:56 Intraventricular conduction delay now present Ventricular premature complex(es) no longer present Left-axis deviation no longer present Left bundle-branch block no longer present Electronically Signed On 06-04-2023 18:42:58 CDT by Macie Weems M.D. [id number]
[2023-06-04] MEDS: potassium chloride oral liq 20 mEq/15 mL UDC 40 MEQ PO (04:54)
[2023-06-04 05:22] LABS: Troponin 5 2HR 30.78 ng/L (0-10)
[2023-06-04 05:31] LABS: Troponin 5 2HR Delta 0.78 ABS# (0-10)
[2023-06-04] MEDS: piperacillin-tazobactam 4.5 GM in sodium chloride 0.9% (plus) 50 ML IV (06:02)
--- NOTE | 2023-06-04 06:07 | PM.HP ---
Providers/Chief Complaint Primary Care Provider: Kassie Toscano Chief Complaint: CP History of Present Illness Ariane Perry is a 82 year old female with a past medical history significant for hypertension, dyslipidemia, carotid artery stenosis, and recent partial colectomy who presents to the emergency department with abdominal pain. Reports pain is in bilateral upper quadrants with occasional radiation towards the back. Reports pain has been presents for the past few days, worse in the prior 24 hours. Movement also seems to worsen the pain. She endorses associated symptoms of diarrhea, fatigue, malaise, chest discomfort and shortness of breath. Denies emesis. Of note, patient recently underwent partial colectomy at [facility] for bowel obstruction associated with colonic mass. She denies any wound dehiscence or drainage. She still has a SAM drain which currently is draining a greenish color. She reports its been draining discolored for the past couple of days. She reports prior to that it was more clear. In the ED, labs revealed leukocytosis, anemia, and hypokalemia. She was found to be hypoxic requiring nasal cannula. CT imaging revealed recent postop changes as well as patchy enteritis felt to be infectious or inflammatory in nature. There is no evidence of a small bowel obstruction. Bilateral pleural effusions were noted. ED provider reportedly contacted surgeon at [facility] to discuss patient. There is no immediate surgical need identified. He reportedly recommended antibiotics and observation. Review of Systems Narrative: A complete review of systems was obtained and is negative except as stated in HPI. Medications/Allergies Home Medications Medication Instructions Recorded Confirmed Last Taken Type aspirin 81 mg tablet,delayed 81 mg PO DAILY@209904/17/20 04/13/23 10/15/22 20:00 History release (Adult Low Dose Aspirin) atorvastatin 40 mg tablet 40 mg PO DAILY@209904/17/20 04/13/23 10/15/22 20:00 History clopidogrel 75 mg tablet (Plavix) 75 mg PO DAILY@209904/17/20 04/13/23 10/13/22 21:00 History nitroglycerin 0.4 mg sublingual 0.4 mg sublingual Q5M PRN chest 04/17/20 04/13/23 12/25/20 History tablet (Nitrostat) pains alprazolam 0.5 mg tablet 1 mg PO BID PRN Anxiety 12/11/20 04/13/23 10/16/22 05:30 History ascorbic acid (vitamin C) 500 mg 500 mg PO DAILY@1600 12/25/20 04/13/23 07/21/21 History tablet (Vitamin C) cholecalciferol (vitamin D3) 125 125 mcg PO DAILY@1600 12/25/20 04/13/23 10/14/22 16:00 History mcg (5,000 unit) tablet (Vitamin D3) magnesium 500 mg tablet 500 mg PO DAILY@1600 12/25/20 04/13/23 10/15/22 10:30 History azelaic acid 15 % topical gel 1 applic topical BID #50 grams 07/17/22 04/13/23 Unknown Rx biotin 1,000 mcg chewable tablet 1,000 mcg PO DAILY 08/05/22 04/13/23 Unknown History potassium chloride 20 mEq 20 meq PO DAILY #30 tabs 10/12/22 04/13/23 10/15/22 10:30 Rx tablet,extended release metoprolol tartrate 100 1 tab PO DAILY 10/15/22 04/13/23 10/15/22 08:00 History mg-hydrochlorothiazide 25 mg tablet amlodipine 5 mg tablet See Rx Instructions .Route 02/15/23 04/13/23 Unknown Rx .COMPLEX #90 tabs hydrocodone 5 mg-acetaminophen 325 1 tab PO BID PRN pain 7 days #14 03/16/23 04/13/23 Unknown Rx mg tablet tabs methocarbamol 500 mg tablet 500 mg PO Q8H #30 tabs 03/16/23 04/13/23 Unknown Rx isosorbide mononitrate 120 mg See Rx Instructions .Route 05/17/23 Unknown Rx tablet,extended release 24 hr .COMPLEX #90 tabs Allergies Allergy/AdvReac Type Severity Reaction Status Date / Time No Known Allergies Allergy Verified 05/23/23 14:34 PFSH Acute PFSH: Medical History (Updated 06/04/23 @ 06:26 by Shiraz Bellamy MD) ASHD (arteriosclerotic heart disease) Bilateral carotid artery stenosis CAD (coronary artery disease) Carotid artery stenosis Chest pain Atypical chest pain likely MSK Diabetes Dyslipidemia Enteritis Hypertension 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 Surgical History (Updated 06/04/23 @ 06:22 by Shiraz Bellamy MD) H/O cataract extraction History of PTCA Family History Mother CAD (coronary artery disease) Father CAD (coronary artery disease) Brother CAD (coronary artery disease) Sister CAD (coronary artery disease) Chronic kidney disease (CKD) Diabetes Hyperlipidemia Hypertension Stroke Denies family history of Clotting disorder Dementia Suicide Anesthesia complication Bleeding disorder Lung disease Cancer Social History Smoking and tobacco status: former smoker Second hand smoke exposure: No Alcohol intake: never Substance/Drug Use: never Pets and animals: No Vitals/I&O/Wt Last Vital Signs Temp 98.9 F 06/04/23 02:00 Pulse 108 H 06/04/23 04:06 Resp 20 H 06/04/23 04:06 BP 136/56 06/04/23 04:06 Pulse Ox 97 06/04/23 04:06 O2 Del Method Nasal Cannula 06/04/23 04:06 O2 Flow Rate 3 06/04/23 04:06 Weight last 48 hrs Weight 54.431 kg Physical Exam Narrative: General: Patient is awake. Frail appearing. Head: Normocephalic. Atraumatic. EOM intact. Neck: No JVD. Cardiovascular: No gallops. 2+ systolic murmur. No peripheral edema. Lungs: Clear to auscultation, no use of accessory muscles, no crackles or wheezes. Skin: No jaundice. No rashes. Abdomen: Midline surgical scar is well approximated, clean dry and intact. abdomen soft, mildly tender in upper quadrants bilaterally. No guarding. No peritoneal signs. Genito Urinary: Genital exam not performed since complaints not related. Rectal: Rectal exam not performed since no symptoms indicated blood loss. Extremities: No cyanosis or clubbing. Musculoskeletal: Normal muscle mass with no graphic. Neurological: Moves all 4 extremities. No myoclonus. Data 06/04/23 02:08 06/04/23 02:08 Micro: Microbiology 06/04/23 02:41 Blood Culture - Preliminary Blood SPECIMEN COLLECTED 06/04/23 02:39 Blood Culture - Preliminary Blood SPECIMEN COLLECTED A&P Assessment and plan (1) Enteritis: CT imaging reviewed Start Zosyn Multimodal pain control (2) S/P colectomy: History of colonic mass with bowel obstruction status post recent partial colectomy Surgeon was contacted, no indication for transfer was identified SAM drain still present, continue drain care Antibiotics as above (3) Hypoxia: Likely multifactorial, possibly splinting from abdominal pain, effusions, volume overload from recent surgery Supplemental oxygen to support (4) Carotid artery stenosis: Continue statin Continue aspirin Continue Plavix (5) Chronic neck and back pain: Pain control as above (6) Hypokalemia: Replace potassium Plan DVT prophylaxis: Lovenox CODE STATUS: Full code Attestations Medical Necessity Statement*: Patient presents with abdominal pain, found to have enteritis in the setting of recent abdominal surgery with expected hospitalization not to cross 2 midnights. Coding Level of Care Code [facility] Diagn[facility] Enteritis K52.9 S/P colectomy Z90.49 Hypoxia R09.02 Carotid artery stenosis I65.29 Chronic neck and back pain M54.2; M54.9; G89.29 Hypokalemia E87.6
[2023-06-04] MEDS: metoprolol succinate ER (24 HR) 100 mg Tablet PO (07:41)
[2023-06-04] MEDS: amlodipine 5 mg Tablet PO (07:41)
[2023-06-04] MEDS: methocarbamol 500 mg Tablet PO ×3 (07:41→20:29)
[2023-06-04] MEDS: HYDROcodone-acetaminophen 5-325 mg Tablet 1 TAB PO ×2 (07:41→13:55)
[2023-06-04] MEDS: potassium chloride ER 20 mEq Tablet PO (07:42)
[2023-06-04 08:34] LABS: Troponin 5 6HR 34.58 ng/L (0-10)
[2023-06-04 08:37] LABS: Troponin 5 6HR Delta 4.58 ng/L (0-12)
[2023-06-04 09:14] LABS: Hemoglobin 8.5 g/dL (11.5-15.3)
--- NOTE | 2023-06-04 10:11 | PM.MISC ---
Miscellaneous Note Note: Drop in hemoglobin repeat H&H 8.5 Hold aspirin and Plavix Hold DVT prophylaxis Patient hemodynamically stable For pain opioid has been added Family at the bedside updated Patient is being treated for enteritis and UTI No active signs of septic shock Actiq acid is normal, no endorgan damage Patient is awake and alert Clinically dehydrated SAM drain with bile Sutures with good cannulation tissue no active signs of surgical site dehiscence Currently on 2 L nasal cannula Patient is from a care home Does not use oxygen at the care home Currently on antibiotics for UTI and enteritis Continue clear liquid diet Optimize opioids Family updated Monitor H&H again at 4 PM
[2023-06-04] MEDS: piperacillin-tazobactam 3.375 GM in sodium chloride 0.9% (plus) 50 ML IV ×2 (13:57→20:44)
[2023-06-04] MEDS: oxyCODONE 5 mg IR Tab/Cap 10 MG PO ×2 (15:57→20:28)
[2023-06-04 17:09] LABS: Hematocrit 26.8 % (37.0-47.0); Hemoglobin 8.1 g/dL (11.5-15.3)
[2023-06-04] MEDS: atorvastatin 40 mg Tablet PO (20:29)
[2023-06-05] VITALS (11 sets, daily range): BP systolic 134–155; BP diastolic 46–72; PULSE 79–87; RESP 16–20; TEMP 36.8–37.7; O2SAT 92–95
[2023-06-05] MEDS: oxyCODONE 5 mg IR Tab/Cap 10 MG PO ×2 (00:43→10:30)
[2023-06-05 02:44] LABS: Basophils % 0.2 %; Eosinophils # 0.1 10^3/uL (0.0-0.8); Eosinophils % 0.7 %; Hematocrit 26.2 % (37.0-47.0); Hemoglobin 7.7 g/dL (11.5-15.3); Lymphocytes # 0.6 10^3/uL (0.8-4.8); Lymphocytes % 3.2 %; Mean Corpuscular HGB Conc 29.4 g/dL (30.0-36.0); Mean Corpuscular Hemoglobin 27.3 pg (28.0-34.0); Mean Corpuscular Volume 92.9 fl (81-99); Mean Platelet Volume 9.1 fL (7.4-10.4); Monocytes # 0.8 10^3/uL (0.2-0.9); Neutrophils # 17.85 10^3/uL (1.8-7.7); Neutrophils % 91.1 %; Nucleated Red Blood Cells % 0 %; Platelet Count 350 10^3/cmm (130-400); Red Blood Count 2.82 10^6/uL (4.1-5.3); Red Cell Distribution Width 16.3 % (12.1-15.1); White Blood Count 19.6 10^3/uL (4.0-10.0)
[2023-06-05 03:10] LABS: Alanine Aminotransferase 17 U/L (0-33); Albumin Level 2.5 g/dL (3.5-5.2); Alkaline Phosphatase 74 U/L (35-105); Anion Gap 12.2 (5-19); Aspartate Amino Transferase 18 U/L (0-32); Blood Urea Nitrogen 10 mg/dL (8-23); Calcium 8.1 mg/dL (8.5-10.5); Carbon Dioxide 24 mmol/L (22-29); Chloride 105 mmol/L (98-107); Creatinine Clr Calc Pharmacy 44.7594; Globulin 1.7 g/dL (1.3-4.6); Glucose 144 mg/dL (65-115); Magnesium 1.9 mg/dL (1.7-2.3); Osmolality Calculated 286 mOsm/kg (285-295); Phosphorus 2.3 mg/dL (2.5-4.5); Potassium 4.2 mmol/L (3.5-5.1); Sodium 137 mmol/L (136-145); Total Bilirubin 0.4 mg/dL (0.15-1.2); Total Protein 4.2 g/dL (6.6-8.7)
[2023-06-05] MEDS: piperacillin-tazobactam 3.375 GM in sodium chloride 0.9% (plus) 50 ML IV (06:24)
--- NOTE | 2023-06-05 06:29 | P.PN_ITS ---
Subjective Subjective: Drop in hemoglobin and worsening leukocytosis, afebrile hemodynamically stable added micafungin and vancomycin she was on zosyn since admit Vitals/I&O/Wt Last Vital Signs Temp 99.8 F H 06/05/23 04:00 Pulse 82 06/05/23 05:36 Resp 20 H 06/05/23 04:00 BP 155/72 06/05/23 04:00 Pulse Ox 94 06/05/23 04:00 O2 Del Method Room Air 06/05/23 04:00 O2 Flow Rate 3 06/04/23 06:12 06/04/23 06/04/23 06/05/23 14:59 22:59 06:59 Intake Total 380 / 380 170 / 550 890 / 1440 Output Total 335 / 335 150 / 485 Balance 380 / 380 -165 / 215 740 / 955 Weight last 48 hrs Weight 77.383 kg Weight 54.431 kg Physical Exam Narrative: no focal neuro exam s1 s2 abd tender on room air family at the bedside Data 06/05/23 02:25 06/05/23 02:25 Micro: Microbiology 06/04/23 02:41 Blood Culture - Preliminary Blood NEGATIVE TO DATE 06/04/23 02:39 Blood Culture - Preliminary Blood NEGATIVE TO DATE 06/04/23 17:35 Occult Blood (FIT) - Final Stool Routine Collection A&P Assessment and plan (1) Hypokalemia: (2) S/P colectomy: (3) Hypoxia: (4) Enteritis: (5) Pleural effusion, bilateral: (6) Pacemaker at end of battery life: (7) Carotid artery stenosis: (8) Hypertension: Qualifiers: Hypertension type: essential hypertension Qualified Code(s): I10 - Essential (primary) hypertension (9) Anemia: Plan Acute normocytic GI blood loss anemia FOBT positive We will consult general surgery We will keep her on p.o. liquid diet until we know the plans for endoscopy Hemodynamically stable We will transfuse 2 units of PRBC Aspirin Plavix and DVT prophylaxis on hold Enteritis/ileitis: Continue Zosyn Worsening leukocytosis noted No fever concern for Aanatomists leakage, added vancomycin and micafungin Colon mass recent colectomy at [place] Patient still has SAM drain which is draining feculant content No signs of bowel obstruction on CT scan abdomen pelvis pt accepted by Dr Jay at [facility] History of carotid stenosis no recent signs of stroke Full code Clear liquid diet which will change to n.p.o. after we know the plans for endoscopy DVT prophylaxis on hold due to anemia Attestations Medical Necessity Statement*: Change to inpatient, continue medical management Coding Level of Care Code Critical Care >/= 30 minutes Critical care time (in minutes): 90 The high probability of a clinically significant, sudden or life threatening deterioration, as referenced in this documentation, required my full and direct attention, intervention and personal management. The critical care time shown is in addition to time spent performing any reported separately billable procedures and includes the following: [x] Data and vital sign review and interpretation [x ] Patient assessment, examination and intervention [x] Medication orders and management [x] Patient/Family updates as able [x] Care Coordination and Documen tation. Diagnoses Hypokalemia E87.6 S/P colectomy Z90.49 Hypoxia R09.02 Enteritis K52.9 Pleural effusion, bilateral J90 Pacemaker at end of battery life Z45.010 Carotid artery stenosis I65.29 Hypertension I10 Hypertension type: essential hypertension Anemia D64.9
[2023-06-05] MEDS: potassium chloride ER 20 mEq Tablet PO (08:06)
[2023-06-05] MEDS: methocarbamol 500 mg Tablet PO (08:06)
[2023-06-05] MEDS: metoprolol succinate ER (24 HR) 100 mg Tablet PO (08:06)
[2023-06-05] MEDS: amlodipine 5 mg Tablet PO (08:06)
[2023-06-05] MEDS: sodium chloride 0.9% 100 mL Bag 50 ML IV (09:20)
--- NOTE | 2023-06-05 09:54 | PM.CONSULT ---
Providers/Reason For Consult Consulting Physician/Specialty*: General surgery Reason for Consult*: Possible GI bleed on the patient is status post partial colectomy Requesting Physician: Dr. Lam Attending Physician: Poonam Jack MD Primary Care Provider: Kassie Toscano History of Present Illness History of Present Illness Ariane Perry is a 82 year old female who is admitted to our cardiac stepdown unit due to possible enteritis and GI bleed after segmental colectomy for colon mass. Patient presented to an emergency department on May 24 with intestinal obstruction, at this point she was transferred to [facility] where she underwent a partial colectomy and excision of colonic mass. Patient had a hospital stay of 7 days at [facility], after which she was transferred to a senior living from where she was discharged 2 days ago. Yesterday she presented to our emergency department complaining of abdominal and chest pain. Cardiac work-up was negative. CT scan of the abdominal pelvis at the time show evidence of postsurgical changes concerning for enteritis. SAM drain was reported greenish at the time. Primary surgeon was contacted at [facility] who consider no need for emergent transfer. Patient was admitted to our institution and placed on IV antibiotics, despite antibiotics we have seen an uptrend on the white count from - and the patient also showed downtrending the hemoglobin. I was consulted for this reason. Review of Systems Narrative: 10 point review of system was done and was negative otherwise noted in HPI. General: Malaise, fatigue Cardiovascular: Chest pain GI: Incontinence, abdominal pain MSK: Back pain Medications/Allergies Home Medications Medication Instructions Recorded Confirmed Last Taken Type aspirin 81 mg tablet,delayed 81 mg PO DAILY@209904/17/20 06/04/23 10/15/22 20:00 History release (Adult Low Dose Aspirin) atorvastatin 40 mg tablet 40 mg PO DAILY@209904/17/20 06/04/23 10/15/22 20:00 History clopidogrel 75 mg tablet (Plavix) 75 mg PO DAILY@209904/17/20 06/04/23 10/13/22 21:00 History nitroglycerin 0.4 mg sublingual 0.4 mg sublingual Q5M PRN chest 04/17/20 06/04/23 12/25/20 History tablet (Nitrostat) pains alprazolam 0.5 mg tablet 1 mg PO DAILY PRN Anxiety 12/11/20 06/04/23 10/16/22 05:30 History magnesium 500 mg tablet 500 mg PO DAILY@1600 12/25/20 06/04/23 10/15/22 10:30 History potassium chloride 20 mEq 20 meq PO DAILY #30 tabs 10/12/22 06/04/23 10/15/22 10:30 Rx tablet,extended release metoprolol tartrate 100 1 tab PO DAILY 10/15/22 06/04/23 10/15/22 08:00 History mg-hydrochlorothiazide 25 mg tablet methocarbamol 500 mg tablet 500 mg PO Q8H #30 tabs 03/16/23 06/04/23 Unknown Rx isosorbide mononitrate 120 mg See Rx Instructions .Route 05/17/23 06/04/23 Unknown Rx tablet,extended release 24 hr .COMPLEX #90 tabs amlodipine 5 mg tablet 2.5 mg PO QAM 06/04/23 06/04/23 Unknown History ciprofloxacin HCl 500 mg tablet 500 mg PO BID 06/04/23 06/04/23 Unknown History ferrous sulfate 325 mg (65 mg 325 mg PO DAILY 06/04/23 06/04/23 Unknown History iron) tablet gabapentin 300 mg capsule 300 mg PO TID 06/04/23 06/04/23 Unknown History hydrocodone 5 mg-acetaminophen 325 1 tab PO Q4H PRN Pain 06/04/23 06/04/23 Unknown History mg tablet Allergies Allergy/AdvReac Type Severity Reaction Status Date / Time No Known Allergies Allergy Verified 05/23/23 14:34 Current Medications Generic Name Dose Route Start Last Admin Trade Name Eleazar PRN Reason Stop Dose Admin Hydrocodone Bitart/Acetaminophen 1 tab 06/04/23 09:56 06/04/23 13:55 Hydrocodone-Acetaminophen 5-325 Mg Tablet PO 1 tab Q4H PRN Administration MODERATE PAIN Amlodipine Besylate 5 mg 06/05/23 09:00 06/05/23 08:06 Amlodipine 5 Mg Tablet PO 5 mg DAILY MICHA Administration Atorvastatin Calcium 40 mg 06/04/23 21:00 06/04/23 20:29 Atorvastatin 40 Mg Tablet PO 40 mg DAILY@2100 MICHA Administration Piperacillin Sod/Tazobactam 50 mls @ 12.5 mls/hr 06/04/23 14:00 06/05/23 06:24 Sod 3.375 gm/ Sodium Chloride IV 12.5 mls/hr Q8H MICHA Administration Protocol Methocarbamol 500 mg 06/04/23 15:00 06/05/23 08:06 Methocarbamol 500 Mg Tablet PO 500 mg TID MICHA Administration Metoprolol Succinate 100 mg 06/05/23 09:00 06/05/23 08:06 Metoprolol Succinate Er (24 Hr) 100 Mg Tablet PO 100 mg DAILY MICHA Administration Oxycodone HCl 10 mg 06/04/23 09:57 06/05/23 00:43 Oxycodone 5 Mg Ir Tab/Cap PO 10 mg Q4H PRN Administration SEVERE PAIN Potassium Chloride 20 meq 06/05/23 09:00 06/05/23 08:06 Potassium Chloride Er 20 Meq Tablet PO 20 meq DAILY MICHA Administration Sodium Chloride 50 ml 06/05/23 06:28 06/05/23 09:20 Sodium Chloride 0.9% 100 Ml Bag IV 06/06/23 06:28 50 ml PRN PRN Administration Blood transfusion prime and flush PFSH Acute PFSH: Medical History (Updated 06/05/23 @ 10:02 by Ash Vicente MD) ASHD (arteriosclerotic heart disease) Bilateral carotid artery stenosis CAD (coronary artery disease) Carotid artery stenosis Chest pain Atypical chest pain likely MSK Diabetes Dyslipidemia Enteritis Hypertension 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 Surgical History (Updated 06/04/23 @ 06:22 by Shiraz Bellamy MD) H/O cataract extraction History of PTCA Family History Mother CAD (coronary artery disease) Father CAD (coronary artery disease) Brother CAD (coronary artery disease) Sister CAD (coronary artery disease) Chronic kidney disease (CKD) Diabetes Hyperlipidemia Hypertension Stroke Denies family history of Clotting disorder Dementia Suicide Anesthesia complication Bleeding disorder Lung disease Cancer Social History Smoking and tobacco status: former smoker Second hand smoke exposure: No Alcohol intake: never Substance/Drug Use: never Pets and animals: No Vitals/I&O/Wt Last Vital Signs Temp 99.0 F 06/05/23 09:30 Pulse 85 06/05/23 09:30 Resp 16 06/05/23 09:30 BP 143/48 06/05/23 09:30 Pulse Ox 94 06/05/23 09:30 O2 Del Method Room Air 06/05/23 07:10 O2 Flow Rate 3 06/04/23 06:12 06/04/23 06/05/23 06/05/23 22:59 06:59 14:59 Intake Total 170 / 550 890 / 1440 0 / 0 Output Total 335 / 335 150 / 485 Balance -165 / 215 740 / 955 0 / 0 Weight last 48 hrs Weight 170 lb 9.6 oz Weight 120 lb Physical Exam Narrative: General : Patient is appropriate for age Head : Normal cephalic, a-traumatic. Nose : Mucous membranes are without erythema. Lungs : Equal chest rise bilaterally, no use of accessory muscles, trachea is midline. CV : Rate and rhythm are normal. Normal BP and normal heart rate Abdomen : Upper midline laparotomy incision which is healing okay, abdomen is tender especially in the right lower quadrant, no evidence of peritoneal signs at this moment. SAM drain noted with feculent drainage, is also noted gas drainage from the SAM drain. Extremities : No edema. Upper extremities are normal bilaterally. Data 06/05/23 02:25 06/05/23 02:25 Micro: Microbiology 06/04/23 02:41 Blood Culture - Preliminary Blood NEGATIVE TO DATE 06/04/23 02:39 Blood Culture - Preliminary Blood NEGATIVE TO DATE 06/04/23 17:35 Occult Blood (FIT) - Final Stool Routine Collection A&P Assessment and plan (1) S/P colectomy: (2) Anastomotic leak of intestine: Plan This is a 82-year-old female status post partial colectomy at outside hospital 2 weeks ago who now presents to our institution complaining of abdominal pain, diarrhea, malaise. I was consulted for evaluation for possible GI bleed and need for endoscopic evaluation. During my evaluation I have conducted a complete review of the imaging studies as well as laboratory work-up, after physical exam was also completed. After this my clinical assessment is the following: Patient signs and symptoms are mostly consistent with an anastomotic leak, which at the moment appeared to be contained due to SAM presence. I personally reviewed the CT scan of the abdomen and pelvis done yesterday. In addition to the described findings it also shows a moderate amount of free air on top of the liver, which is consistent with the possibility of an anastomotic leak, changes noted around the anastomosis are likely local reaction due to leak instead of an enteritis. The drainage of the SAM drain is also indicative of anastomotic leak since his feculent and under discussed drainage through it. I Informed the patient of the findings and I had an extensive discussion regarding the possibility of treatment, at this point I think is necessary an urgent transfer to [facility] for possible evaluation for anastomotic revision and abdominal washout. I have informed the patient that in the case of needing surgery it will represent a high risk for morbidity or mortality, which will also likely require a long hospital stay including ICU with possible open abdomen, which will require higher level of care than the one offered in our institution. Patient shows understanding of the severity of the situation, son was also at the bedside and showed understanding. I Contacted Dr. Lam and made him aware of the findings, he has agreed with the urgent need for transfer to [facility]. I have also requested him that in the meantime we broaden the spectrum of coverage of the antibiotics including vancomycin and caspofungin to provide coverage of enteric isaiah. I will remain available in the need of further discussion with primary surgeon. ? Please start urgent transfer to primary surgeon in [facility], decision making noted above. ? Please increase antibiotic coverage with vancomycin and caspofungin ? Continue all other care by primary team ? General surgery remains available for any needs in the care of this patient. Coding Level of Care Code 66108 Diagnoses S/P colectomy Z90.49 Anastomotic leak of intestine K91.89
--- NOTE | 2023-06-05 10:34 | PM.TDS ---
Transfer Summary Providers Date of Admission: 06/04/23 06:49 Date of Discharge/Transfer: 06/06/23 Attending Provider at Admission: Poonam Jack MD Attending Provider at Transfer: Poonam Jack MD Primary Care Provider: Kassie Toscano Transfer Plans: Anticipated date of transfer: 06/06/23. 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 She recently had exploratory laparotomy at [facility] by Dr. Chantell Jay. SAM drain was placed and she was discharged home with two weeks follow up as per the patient .she presented to the hospital for severe abdominal pain with leukocytosis 16,000, no fever hemodynamically stable, within 24 hours of hemoglobin has dropped to 7.7 from 11, however, she has remained hemodynamic stable, leukocytosis worsened to 19k, She remained afebrile, cultures, negat, Vancomycin, Zosyn and micafungins antibiotics/antifungal on board. Patient has been accepted by Dr. Chantell Boggs at [facility] for concern of anastomsis leak and feculant content in the drain. Family is aware Pt will be airlifted Physical Exam Narrative: ABd tender s1,s2 on room air GCS 15 non focal neuro exam TS Data Studies Completed and Pending Pending at discharge Category Date Time Status Basic Metabolic Panel AM LABS Lab 06/06/23 04:00 Ordered Blood Culture Stat Lab 06/04/23 02:41 Results Complete Blood Count w/Auto AM LABS Lab 06/06/23 04:00 Ordered Gastricult Occult BLD Routine Lab 06/04/23 09:57 Ordered PRBC [Leukocyte Reduced RBC] Routine Lab 06/05/23 06:28 Results Stool Culture, Bacterial [Enteric Bacterial Panel by Lab 06/04/23 17:35 Received PCR] Routine Type and Screen Routine Lab 06/05/23 06:28 Results Urine Culture Stat Lab 06/04/23 04:05 Received Labs from last 24 hours 06/05/23 06/05/23 06/04/23 02:25 02:25 16:55 WBC 19.6 H RBC 2.82 L Hgb 7.7 L 8.1 L Hct 26.2 L 26.8 L MCV 92.9 MCH 27.3 L MCHC 29.4 L RDW 16.3 H Plt Count 350 MPV 9.1 Neut % (Auto) 91.1 Lymph % (Auto) 3.2 Nash % (Auto) 4.0 Eos % (Auto) 0.7 Baso % (Auto) 0.2 Neut # (Auto) 17.85 H Lymph # (Auto) 0.6 L Nash # (Auto) 0.8 Eos # (Auto) 0.1 Baso # (Auto) 0.0 Nucleated RBC % (auto) 0 Nucleated RBCs # 0.0 Sodium 137 Potassium 4.2 Chloride 105 Carbon Dioxide 24 Anion Gap 12.2 BUN 10 Creatinine 0.7 GFR Calculation Not Reportable Glucose 144 H Calculated Osmolality 286 Calcium 8.1 L Phosphorus 2.3 L Magnesium 1.9 Total Bilirubin 0.4 AST 18 ALT 17 Alkaline Phosphatase 74 Total Protein 4.2 L Albumin 2.5 L Globulin 1.7 Blood Type Rho(D) Type Antibody Screen Crossmatch 06/04/23 06/04/23 16:20 09:03 WBC RBC Hgb Cancelled Hct Cancelled MCV MCH MCHC RDW Plt Count MPV Neut % (Auto) Lymph % (Auto) Nash % (Auto) Eos % (Auto) Baso % (Auto) Neut # (Auto) Lymph # (Auto) Nash # (Auto) Eos # (Auto) Baso # (Auto) Nucleated RBC % (auto) Nucleated RBCs # Sodium Potassium Chloride Carbon Dioxide Anion Gap BUN Creatinine GFR Calculation Glucose Calculated Osmolality Calcium Phosphorus Magnesium Total Bilirubin AST ALT Alkaline Phosphatase Total Protein Albumin Globulin Blood Type O Positive Rho(D) Type Positive Antibody Screen Negative Crossmatch See Detail Completed Studies During Hospitalization Category Date Time Status CTA chest CT abdomen pelvis [CT angio chest w abd pel w Cat Scan 06/04/23 02:23 Completed con] Stat XR chest 1V portable [id number] Stat Exams 06/04/23 02:12 Completed Laboratory Last Values WBC 19.6 10^3/uL (4.0-10.0) H 06/05/23 02:25 RBC 2.82 10^6/uL (4.1-5.3) L 06/05/23 02:25 Hgb 7.7 g/dL (11.5-15.3) L 06/05/23 02:25 Hct 26.2 % (37.0-47.0) L 06/05/23 02:25 MCV 92.9 fl (81-99) 06/05/23 02:25 MCH 27.3 pg (28.0-34.0) L 06/05/23 02:25 MCHC 29.4 g/dL (30.0-36.0) L 06/05/23 02:25 RDW 16.3 % (12.1-15.1) H 06/05/23 02:25 Plt Count 350 10^3/cmm (130-400) 06/05/23 02:25 MPV 9.1 fL (7.4-10.4) 06/05/23 02:25 Neut % (Auto) 91.1 % 06/05/23 02:25 Lymph % (Auto) 3.2 % 06/05/23 02:25 Nash % (Auto) 4.0 % 06/05/23 02:25 Eos % (Auto) 0.7 % 06/05/23 02:25 Baso % (Auto) 0.2 % 06/05/23 02:25 Neut # (Auto) 17.85 10^3/uL (1.8-7.7) H 06/05/23 02:25 Lymph # (Auto) 0.6 10^3/uL (0.8-4.8) L 06/05/23 02:25 Nash # (Auto) 0.8 10^3/uL (0.2-0.9) 06/05/23 02:25 Eos # (Auto) 0.1 10^3/uL (0.0-0.8) 06/05/23 02:25 Baso # (Auto) 0.0 10^3/uL (0.0-0.1) 06/05/23 02:25 Nucleated RBC % (auto) 0 % 06/05/23 02:25 Nucleated RBCs # 0.0 /100WBC 06/05/23 02:25 Sodium 137 mmol/L (136-145) 06/05/23 02:25 Potassium 4.2 mmol/L (3.5-5.1) 06/05/23 02:25 Chloride 105 mmol/L (98-107) 06/05/23 02:25 Carbon Dioxide 24 mmol/L (22-29) 06/05/23 02:25 Anion Gap 12.2 (5-19) 06/05/23 02:25 BUN 10 mg/dL (8-23) 06/05/23 02:25 Creatinine 0.7 mg/dL (0.5-0.9) 06/05/23 02:25 GFR Calculation Not Reportable 06/05/23 02:25 Glucose 144 mg/dL (65-115) H 06/05/23 02:25 Calculated Osmolality 286 mOsm/kg (285-295) 06/05/23 02:25 Lactic Acid 1.2 mmol/L (0.5-2.2) 06/04/23 02:08 Calcium 8.1 mg/dL (8.5-10.5) L 06/05/23 02:25 Phosphorus 2.3 mg/dL (2.5-4.5) L 06/05/23 02:25 Magnesium 1.9 mg/dL (1.7-2.3) 06/05/23 02:25 Total Bilirubin 0.4 mg/dL (0.15-1.2) 06/05/23 02:25 AST 18 U/L (0-32) 06/05/23 02:25 ALT 17 U/L (0-33) 06/05/23 02:25 Alkaline Phosphatase 74 U/L (35-105) 06/05/23 02:25 Troponin T Baseline 30 ng/L (0-10) H 06/04/23 02:08 Troponin T 120 Minute 30.78 ng/L (0-10) H 06/04/23 05:00 Delta Troponin T 0.78 ABS# (0-10) 06/04/23 05:00 Troponin T Hi Sens 6Hr 34.58 ng/L (0-10) H 06/04/23 08:01 Troponin T Hi Sens 6Hr Delta 4.58 ng/L (0-12) 06/04/23 08:01 NT-Pro-B Natriuret Pep 1769 pg/mL (0-450) H 06/04/23 02:08 Total Protein 4.2 g/dL (6.6-8.7) L 06/05/23 02:25 Albumin 2.5 g/dL (3.5-5.2) L 06/05/23 02:25 Globulin 1.7 g/dL (1.3-4.6) 06/05/23 02:25 Urine Color Yellow (Yellow) 06/04/23 04:05 Urine Appearance Cloudy (CLEAR) A 06/04/23 04:05 Urine pH 5 (5-7) 06/04/23 04:05 Ur Specific [place] 1.020 (1.005-1.030) 06/04/23 04:05 Urine Protein Trace (Negative) 06/04/23 04:05 Urine Glucose (UA) Norm (Normal) 06/04/23 04:05 Urine Ketones 1+ (Negative) H 06/04/23 04:05 Urine Blood Neg (Negative) 06/04/23 04:05 Urine Nitrate Negative (Negative) 06/04/23 04:05 Urine Bilirubin Neg (Negative) 06/04/23 04:05 Urine Urobilinogen Neg mg/dL (Negative) 06/04/23 04:05 Ur Leukocyte Esterase 2+ (Negative) H 06/04/23 04:05 Urine RBC 5-10 /hpf (0-2) H 06/04/23 04:05 Urine WBC 10-15 /hpf (0-5) H 06/04/23 04:05 Ur Squamous Epith Cells 5-10 /hpf (0-5) H 06/04/23 04:05 Amorphous Sediment Not Reportable 06/04/23 04:05 Urine Bacteria 3+ /hpf (NONE) H 06/04/23 04:05 Urine Mucus 2+ /hpf 06/04/23 04:05 Urine Yeast 3+ /hpf H 06/04/23 04:05 Blood Type O Positive 06/04/23 09:03 Rho(D) Type Positive 06/04/23 09:03 Antibody Screen Negative 06/04/23 09:03 Crossmatch See Detail 06/04/23 09:03 Radiology Impressions Chest X-Ray 06/04/23 02:12 IMPRESSION: Left basilar atelectasis. Chest/Abdomen/Pelvis CT 06/04/23 02:23 IMPRESSION: Small bilateral pleural effusions with adjacent atelectasis. Calcific mediastinal lymphadenopathy. IMPRESSION: Postsurgical change as described. Patchy enteritis infectious or inflammatory. No evidence for small bowel obstruction. Cholelithiasis. 35 mm probable right hepatic hemangioma. Prior granulomatous disease. Renal cysts. COMMENTS: Consistent with the [employer]'s Incidental Findings Committee white paper (J Am Tammy Radiol 2018): Any incidental renal lesion less than 1 cm or classified as too small to characterize, or any incidental cystic renal lesion characterized as simple-appearing, is likely benign. No follow-up imaging is recommended for these lesions per consensus recommendations based on imaging criteria. Recent Clincial Data Last Vital Signs Temp 99.0 F 06/05/23 09:30 Pulse 85 06/05/23 09:30 Resp 16 06/05/23 09:30 BP 143/48 06/05/23 09:30 Pulse Ox 94 06/05/23 09:30 O2 Del Method Room Air 06/05/23 07:10 O2 Flow Rate 3 06/04/23 06:12 Vital Signs Temp Pulse Resp BP Pulse Ox O2 Del Method 06/05/23 09:30 99.0 F 85 16 143/48 94 06/05/23 09:15 98.9 F 83 16 142/54 95 06/05/23 09:07 98.6 F 83 16 143/55 95 06/05/23 07:10 98.9 F 82 134/49 92 Room Air 06/05/23 05:36 82 06/05/23 04:00 99.8 F H 79 20 H 155/72 94 Room Air 06/05/23 00:00 98.8 F 87 17 145/52 94 Room Air 06/05/23 00:43 16 94 Intake & Output/Weight 06/03/23 06/04/23 06/05/23 06/06/23 06:59 06:59 06:59 06:59 Intake Total 1440 / 1440 0 / 0 Output Total 485 / 485 Balance 955 / 955 0 / 0 Weight 54.431 kg 77.383 kg Vitals Last Vital Signs Temp 99.0 F 06/05/23 09:30 Pulse 85 06/05/23 09:30 Resp 16 06/05/23 09:30 BP 143/48 06/05/23 09:30 Pulse Ox 94 06/05/23 09:30 O2 Del Method Room Air 06/05/23 07:10 O2 Flow Rate 3 06/04/23 06:12 TS Medications Medications Acetaminophen (Acetaminophen 325 Mg Tablet) 650 mg PO Q6H PRN PRN Reason: Mild/Mod Pain Or Temp >/= 101 Hydrocodone Bitart/Acetaminophen (Hydrocodone-Acetaminophen 5-325 Mg Tablet) 1 tab PO Q4H PRN PRN Reason: MODERATE PAIN Last Admin: 06/04/23 13:55 Dose: 1 tab Alprazolam (Alprazolam 0.5 Mg Tablet) 1 mg PO BID PRN PRN Reason: Anxiety Amlodipine Besylate (Amlodipine 5 Mg Tablet) 5 mg PO DAILY [facility] Last Admin: 06/05/23 08:06 Dose: 5 mg Aspirin (Aspirin 81 Mg Ec Tablet) 81 mg PO DAILY@2100 [facility] Atorvastatin Calcium (Atorvastatin 40 Mg Tablet) 40 mg PO DAILY@2100 [facility] Last Admin: 06/04/23 20:29 Dose: 40 mg Clopidogrel Bisulfate (Clopidogrel 75 Mg Tablet) 75 mg PO DAILY@2100 [facility] Piperacillin Sod/Tazobactam (Sod 3.375 gm/ Sodium Chloride) 50 mls @ 12.5 mls/hr IV Q8H [facility]; Protocol Last Admin: 06/05/23 06:24 Dose: 12.5 mls/hr Micafungin Sodium 100 mg/ (Sodium Chloride) 100 mls @ 100 mls/hr IV Q24H [facility] Vancomycin HCl 1,000 mg/ (Sodium Chloride) 250 mls @ 250 mls/hr IV Q18H [facility]; Protocol Isosorbide Mononitrate (Isosorbide Mononitrate Er 60 Mg Tablet) 120 mg PO 2100 [facility] Methocarbamol (Methocarbamol 500 Mg Tablet) 500 mg PO TID [facility] Last Admin: 06/05/23 08:06 Dose: 500 mg Metoprolol Succinate (Metoprolol Succinate Er (24 Hr) 100 Mg Tablet) 100 mg PO DAILY [facility] Last Admin: 06/05/23 08:06 Dose: 100 mg Morphine Sulfate (Morphine 4 Mg/Ml Sdv 1 Ml) 2 mg IVP Q4H PRN PRN Reason: SEVERE PAIN Nitroglycerin (Nitroglycerin 0.4 Mg Sublingual Tablet) 0.4 mg SUBLINGUAL Q5M PRN PRN Reason: chest pains Ondansetron HCl (Ondansetron 2 Mg/Ml Sdv 2 Ml) 4 mg IVP Q8H PRN PRN Reason: vomiting, or N/V if npo Oxycodone HCl (Oxycodone 5 Mg Ir Tab/Cap) 10 mg PO Q4H PRN PRN Reason: SEVERE PAIN Last Admin: 06/05/23 00:43 Dose: 10 mg Potassium Chloride (Potassium Chloride Er 20 Meq Tablet) 20 meq PO DAILY [facility] Last Admin: 06/05/23 08:06 Dose: 20 meq Sodium Chloride (Sodium Chloride 0.9% 100 Ml Bag) 50 ml IV PRN PRN PRN Reason: Blood transfusion prime and flush Stop: 06/06/23 06:28 Last Admin: 06/05/23 09:20 Dose: 50 ml Discontinued Medications Acetaminophen (Acetaminophen 325 Mg Tablet) 650 mg PO Q6H PRN PRN Reason: Mild/Mod Pain Or Temp >/= 101 Hydrocodone Bitart/Acetaminophen (Hydrocodone-Acetaminophen 5-325 Mg Tablet) 1 tab PO BID PRN PRN Reason: pain Hydrocodone Bitart/Acetaminophen (Hydrocodone-Acetaminophen 5-325 Mg Tablet) 1 tab PO Q4H PRN PRN Reason: MODERATE PAIN Last Admin: 06/04/23 07:41 Dose: 1 tab Alprazolam (Alprazolam 0.5 Mg Tablet) 1 mg PO BID PRN PRN Reason: Anxiety Amlodipine Besylate (Amlodipine 5 Mg Tablet) 5 mg PO DAILY [facility] Last Admin: 06/04/23 07:41 Dose: 5 mg Aspirin (Aspirin 81 Mg Ec Tablet) 81 mg PO DAILY@2100 [facility] Atorvastatin Calcium (Atorvastatin 40 Mg Tablet) 40 mg PO DAILY@2100 [facility] Clopidogrel Bisulfate (Clopidogrel 75 Mg Tablet) 75 mg PO DAILY@2100 [facility] Enoxaparin Sodium (Enoxaparin 40 Mg/0.4 Ml Syringe) 40 mg SUBCUT Q24H [facility] Last Admin: 06/04/23 08:43 Dose: Not Given Enoxaparin Sodium (Enoxaparin 40 Mg/0.4 Ml Syringe) 40 mg SUBCUT Q24H [facility] Enoxaparin Sodium (Enoxaparin 40 Mg/0.4 Ml Syringe) 40 mg SUBCUT Q24H [facility] Fentanyl (Fentanyl 50 Mcg/Ml Inj 2ml) 50 mcg IVP Q30M PRN PRN Reason: pain Last Admin: 06/04/23 06:08 Dose: 50 mcg Lidocaine HCl 5 ml/ Potassium (Chloride) 105 mls @ 26.25 mls/hr IV ONCE ONE Stop: 06/04/23 06:52 Last Infusion: 06/04/23 07:30 Dose: Infused Piperacillin Sod/Tazobactam (Sod 4.5 gm/ Sodium Chloride) 50 mls @ 100 mls/hr IV ONCE ONE; Protocol Stop: 06/04/23 06:15 Last Infusion: 06/04/23 07:30 Dose: Infused Piperacillin Sod/Tazobactam (Sod 3.375 gm/ Sodium Chloride) 50 mls @ 12.5 mls/hr IV Q8H [facility]; Protocol Lidocaine HCl 5 ml/ Potassium (Chloride) 105 mls @ 26.25 mls/hr IV ONCE ONE Stop: 06/04/23 12:59 Last Infusion: 06/04/23 14:07 Dose: Infused Lidocaine HCl 5 ml/ Potassium (Chloride) 105 mls @ 26.25 mls/hr IV ONCE ONE Stop: 06/04/23 14:14 Last Admin: 06/04/23 09:59 Dose: Not Given Vancomycin HCl 1,000 mg/ (Sodium Chloride) 250 mls @ 250 mls/hr IV Q18H [facility]; Protocol Iohexol (Iohexol 350 Mg/Ml 500 Ml Btl (Per Ml)) 0 ml IV ONCE ONE Stop: 06/04/23 02:58 Last Admin: 06/04/23 02:58 Dose: 70 ml Isosorbide Mononitrate (Isosorbide Mononitrate Er 60 Mg Tablet) 120 mg PO 2100 [facility] Methocarbamol (Methocarbamol 500 Mg Tablet) 500 mg PO TID [facility] Last Admin: 06/04/23 07:41 Dose: 500 mg Metoprolol Succinate (Metoprolol Succinate Er (24 Hr) 100 Mg Tablet) 100 mg PO DAILY [facility] Last Admin: 06/04/23 07:41 Dose: 100 mg Morphine Sulfate (Morphine 4 Mg/Ml Sdv 1 Ml) 4 mg IVP ONCE ONE Stop: 06/04/23 02:13 Last Admin: 06/04/23 02:18 Dose: 4 mg Morphine Sulfate (Morphine 4 Mg/Ml Sdv 1 Ml) 2 mg IVP Q4H PRN PRN Reason: SEVERE PAIN Nitroglycerin (Nitroglycerin 0.4 Mg Sublingual Tablet) 0.4 mg SUBLINGUAL Q5M PRN PRN Reason: chest pains Ondansetron HCl (Ondansetron 2 Mg/Ml Sdv 2 Ml) 4 mg IVP ONCE ONE Stop: 06/04/23 02:13 Last Admin: 06/04/23 02:19 Dose: 4 mg Ondansetron HCl (Ondansetron 2 Mg/Ml Sdv 2 Ml) 4 mg IVP Q8H PRN PRN Reason: vomiting, or N/V if npo Ondansetron HCl (Ondansetron 4 Mg Tablet) 4 mg PO Q8H PRN PRN Reason: NAUSEA Ondansetron HCl (Ondansetron 4 Mg Tablet) 4 mg PO Q8H PRN PRN Reason: NAUSEA Potassium Chloride (Potassium Chloride Oral Liq 20 Meq/15 Ml Udc) 40 meq PO ONCE ONE Stop: 06/04/23 04:23 Last Admin: 06/04/23 04:54 Dose: 40 meq Potassium Chloride (Potassium Chloride Er 20 Meq Tablet) 20 meq PO DAILY [facility] Last Admin: 06/04/23 07:42 Dose: 20 meq Allergies No Known Allergies Allergy (Verified 05/23/23 14:34) Home Medications aspirin 81 mg tablet,delayed release (Adult Low Dose Aspirin) 81 mg PO DAILY@209904/17/20 [History Confirmed 06/04/23] atorvastatin 40 mg tablet 40 mg PO DAILY@209904/17/20 [History Confirmed 06/04/23] clopidogrel 75 mg tablet (Plavix) 75 mg PO DAILY@209904/17/20 [History Confirmed 06/04/23] nitroglycerin 0.4 mg sublingual tablet (Nitrostat) 0.4 mg sublingual Q5M PRN chest pains 04/17/20 [History Confirmed 06/04/23] alprazolam 0.5 mg tablet 1 mg PO DAILY PRN Anxiety 12/11/20 [History Confirmed 06/04/23] magnesium 500 mg tablet 500 mg PO DAILY@159912/25/20 [History Confirmed 06/04/23] potassium chloride 20 mEq tablet,extended release 20 meq PO DAILY #30 tabs 10/12/22 [Rx Confirmed 06/04/23] metoprolol tartrate 100 mg-hydrochlorothiazide 25 mg tablet 1 tab PO DAILY 10/15/22 [History Confirmed 06/04/23] methocarbamol 500 mg tablet 500 mg PO Q8H #30 tabs 03/16/23 [Rx Confirmed 06/04/23] isosorbide mononitrate 120 mg tablet,extended release 24 hr See Rx Instructions .Route .COMPLEX #90 tabs 05/17/23 [Rx Confirmed 06/04/23] amlodipine 5 mg tablet 2.5 mg PO QAM 06/04/23 [History Confirmed 06/04/23] ciprofloxacin HCl 500 mg tablet 500 mg PO BID 06/04/23 [History Confirmed 06/04/23] ferrous sulfate 325 mg (65 mg iron) tablet 325 mg PO DAILY 06/04/23 [History Confirmed 06/04/23] gabapentin 300 mg capsule 300 mg PO TID 06/04/23 [History Confirmed 06/04/23] hydrocodone 5 mg-acetaminophen 325 mg tablet 1 tab PO Q4H PRN Pain 06/04/23 [History Confirmed 06/04/23] Discharge Plan Discharge Patient Disposition: Home Condition: Stable Prescriptions: No Action clopidogrel [Plavix] 75 mg tablet 75 mg PO DAILY@2100 nitroglycerin [Nitrostat] 0.4 mg tablet, sublingual 0.4 mg SUBLINGUAL Q5M PRN (Reason: chest pains) Rx Instructions: do not exceed 3 doses per episode atorvastatin 40 mg tablet 40 mg PO DAILY@2100 aspirin [Adult Low Dose Aspirin] 81 mg tablet,delayed release (DR/EC) 81 mg PO DAILY@2100 alprazolam 0.5 mg tablet 1 mg PO DAILY PRN (Reason: Anxiety) methocarbamol 500 mg tablet 500 mg PO Q8H Qty: 30 0RF potassium chloride 20 mEq tablet extended release 20 meq PO DAILY Qty: 30 5RF isosorbide mononitrate 120 mg tablet extended release 24 hr See Rx Instructions .ROUTE .COMPLEX Qty: 90 3RF Dose Instruction: TAKE 1 TABLET BY MOUTH EACH EVENING AT 9PM Rx Instructions: TAKE 1 TABLET BY MOUTH EACH EVENING AT 9PM. HOLD FORSYSTOLIC BP LESS THEN 100 OR PULSE LESS THAN 60. magnesium 500 mg Tablet 500 mg PO DAILY@1600 metoprolol ta-hydrochlorothiaz 100-25 mg Tablet 1 tab PO DAILY hydrocodone-acetaminophen 5-325 mg tablet 1 tab PO Q4H PRN (Reason: Pain) ciprofloxacin HCl 500 mg tablet 500 mg PO BID Rx Instructions: for bowel obstruction fo 10 days ferrous sulfate 325 mg (65 mg iron) Tablet 325 mg PO DAILY gabapentin 300 mg capsule 300 mg PO TID Rx Instructions: for neuropathy amlodipine 5 mg tablet 2.5 mg PO QAM Rx Instructions: HOLD FOR SYSTOLIC BP LESS THAN 100 OR PULSE LESS THAN 60. Discharge Orders: Transfer Out of Facility (Order); Ordered 06/05/23 Ordered By: Poonam Jack Referrals: Kassie Toscano [Primary Care Provider] - Patient Instructions: Opioid Safety Transfer Attestations Time Spent in Transfer Care: greater than 30 min Status at Transfer: Cognitive status at transfer: cognitively intact; Behavioral status at transfer: cooperative; Quality Metrics Clinical Quality Measures [ No reported AMI, CVA or VTE this stay] Coding Level of Care Code Acute Code for Chg Fwd Diagnoses Hypokalemia E87.6 S/P colectomy Z90.49 Hypoxia R09.02 Enteritis K52.9 Pleural effusion, bilateral J90 Pacemaker at end of battery life Z45.010 Carotid artery stenosis I65.29 Hypertension I10 Hypertension type: essential hypertension Anemia D64.9
[2023-06-05] MEDS: micafungin 100 MG in sodium chloride 0.9% (plus) 100 ML IV (10:47)
--- NOTE | 2023-06-05 11:41 | PC.NURSE ---
Patient left with [facility], transferring to [facility] in [place], [place]. Patient A&Ox4, vitals WNL. Family present during transfer, and left with patient belongings.
== END 2023-06-05 11:35 | disposition short-term general hospital (02) | DRG 394 ==
LOC: ER 05:59 → CSU 07:09
PROVIDERS: Internal Medicine; Admitting Provider Internal Medicine; Emergency Provider Emergency Medicine; PCP Registered Nurse; Visit Provider Internal Medicine
DX: K91.89 Other postprocedural complications and disorders of digestive system (principal); D62 Acute posthemorrhagic anemia; N39.0 Urinary tract infection, site not specified; J90 Pleural effusion, not elsewhere classified; Z90.49 Acquired absence of other specified parts of digestive tract; E87.6 Hypokalemia; E86.0 Dehydration; Z79.82 Long term (current) use of aspirin; Z79.02 Long term (current) use of antithrombotics/antiplatelets; I25.10 Atherosclerotic heart disease of native coronary artery without angina pectoris; I10 Essential (primary) hypertension; I65.23 Occlusion and stenosis of bilateral carotid arteries; Z95.0 Presence of cardiac pacemaker; E78.5 Hyperlipidemia, unspecified; R09.02 Hypoxemia; E11.9 Type 2 diabetes mellitus without complications; I45.5 Other specified heart block; Z87.891 Personal history of nicotine dependence; M54.2 Cervicalgia; M54.9 Dorsalgia, unspecified; Y83.2 Surgical operation with anastomosis, bypass or graft as the cause of abnormal reaction of the patient, or of later complication, without mention of misadventure at the time of the procedure; G89.29 Other chronic pain
CPT/HCPCS: 36415; 36430; 71045; 71275; 74177; 80053; 81001; 81015; 82274; 83605; 83735; 83880; 84100; 84484; 85014; 85018; 85025; 86850; 86900; 86920; 87040; 87086; 87106; 87506; 93005; 96365; 96366; 96367; 96372; 96376; 99255; 99285; G0378; J2248; J2270; J2405; J2543; J3010; J3480; P9040; Q9967